=== PATIENT | male | born 1935 | race Caucasian/White ===

== ENCOUNTER 2016-10-30 13:30 | Inpatient (IN) ==
[2016-10-30] MEDS ORDERED: LEVOFLOXACIN INJ 750 MG in PREMIX 1 EACH IV SCH (14:00)
[2016-10-30] MEDS: SODIUM CHLORIDE 0.45% 1,000 ML IV SCH (14:21)
[2016-10-30] MEDS: FONDAPARINUX 2.5 MG/0.5 ML SYRINGE SUBCUT SCH (14:22)
--- NOTE | 2016-10-30 15:33 | XRay Report ---
XR chest 2V Indication: Pneumonia. Comparison: Chest x-ray 03/09/2015 Technique: PA and lateral chest x-ray was performed. Findings: This been little overall change in chest since comparison study. The biggest change exists within the left lung base in which there are now stranding and scattered airspace opacities could reflect worsening infection. Venous access device, postoperative changes right shoulder, bony structures soft tissues and heart size appears stable. Small left-sided pleural effusion is present. Trace right-sided pleural effusion is additionally suggested. Impression: 1. Increasing airspace disease left lung base suggests worsening infection. Small left-sided pleural effusion is additionally now present. 2. Trace right-sided pleural effusion is suggested. 10/30/2016 3:30 PM PROCEDURE INTERPRETED AT [facility] DEPARTMENT OF RADIOLOGY Final Report Signed by: Dr. Dmitri Roper
[2016-10-30] MEDS ORDERED: MAGNESIUM HYDROXIDE SUSP 30 ML UDCUP PO PRN (16:18)
[2016-10-30] MEDS ORDERED: traMADol 50 MG TABLET PO PRN (16:18)
[2016-10-30] MEDS ORDERED: ALUMINUM/MAGNES/SIMETH MAX STR 30 ML UDCUP PO PRN (16:18)
[2016-10-30] MEDS ORDERED: chlorproMAZINE INJ 25 MG in SODIUM CHLORIDE 0.9% 100 ML IV PRN (16:18)
[2016-10-30] MEDS ORDERED: PROMETHAZINE INJ 25 MG in SODIUM CHLORIDE 0.9% 50 ML IV PRN (16:18)
[2016-10-30] MEDS ORDERED: TEMAZEPAM 7.5 MG CAPSULE PO PRN (16:18)
[2016-10-30] MEDS ORDERED: MYLANTA/LIDO VISC 2:1 300 ML BOTTLE SWISH/SWAL PRN (16:18)
[2016-10-30] MEDS ORDERED: guaiFENesin 200 MG/10 ML UDCUP PO PRN (16:18)
[2016-10-30] MEDS ORDERED: LOPERAMIDE 2 MG CAPSULE PO PRN ×2 (16:18)
[2016-10-30] MEDS ORDERED: BENZTROPINE 2 MG/2 ML AMP IV PRN (16:18)
[2016-10-30] MEDS ORDERED: ONDANSETRON 4 MG/2 ML VIAL IV PRN (16:18)
[2016-10-30] MEDS ORDERED: MYLANTA/LIDO VISC 2:1 300 ML BOTTLE SWISH/SPIT PRN (16:18)
[2016-10-30] MEDS ORDERED: LACTULOSE 20 GM/30 ML UDCUP PO PRN (16:18)
[2016-10-30] MEDS ORDERED: chlorproMAZINE INJ 50 MG in SODIUM CHLORIDE 0.9% 100 ML IV PRN (16:18)
[2016-10-30] MEDS ORDERED: diphenhydrAMINE CAP 25 MG CAPSULE PO PRN (16:18)
[2016-10-30] MEDS ORDERED: chlorproMAZINE 25 MG TABLET PO PRN (16:18)
[2016-10-30] MEDS ORDERED: ACETAMINOPHEN 325 MG TABLET PO PRN (16:18)
[2016-10-30] MEDS ORDERED: MAGNESIUM CHLORIDE 64 MG TABLET PO ONE (22:24)
[2016-10-30] MEDS ORDERED: ASPIRIN EC 81 MG TABLET PO SCH (22:30)
[2016-10-30] MEDS: ALPRAZolam 0.25 MG TABLET PO PRN (22:42)
[2016-10-30] MEDS: TEMAZEPAM 15 MG CAPSULE PO SCH (22:42)
[2016-10-30] MEDS: TAMSULOSIN 0.4 MG CAPSULE PO SCH (22:42)
[2016-10-30] MEDS: TIMOLOL 0.5% OPH SOLN 5 ML BOTTLE RIGHT EYE SCH (23:40)
[2016-10-30] MEDS: DORZOLAMIDE 2% OPH SOLN 10 ML BOTTLE RIGHT EYE SCH (23:42)
[2016-10-31 06:31] LABS: Basophils % 0.3 % (0.0-0.8); Eosinophils # 0.1 10*3/uL (0.0-0.87); Eosinophils % 3.2 % (0.00-10.9); Hematocrit 29.9 VOL% (42.0-52.0); Hemoglobin 10.3 GM/DL (14.0-18.0); Immature Granulocytes % 0.6 %; Immature Granulocytes Absolute 0.02 #; Lymphocytes # 0.7 10*3/uL (1.4-4.0); Lymphocytes % 22.4 % (21.2-54.2); Mean Corpuscular HGB Conc 34.4 GM/DL (32-36); Mean Corpuscular Hemoglobin 35 PG (27-34); Mean Corpuscular Volume 100.7 FL (87-102); Mean Platelet Volume 10.4 FL (9.6-12.0); Monocytes # 0.4 10*3/uL (0.11-0.8); Monocytes % 13.6 % (1.7-12.7); Neutrophils # 1.8 10*3/uL (1.4-7.4); Neutrophils % 59.9 % (38.7-73.9); Platelet Count 49 T/CUMM (130-400); Red Blood Count 2.97 MC/CUMM (3.8-5.5); Red Cell Distribution Width 18.7 % (9.3-17.3); White Blood Count 3.1 T/CUMM (4-12)
[2016-10-31 06:58] LABS: Macrocytosis 2+; Target Cells Slight
[2016-10-31 08:29] LABS: Calcium 7.9 MG/DL (8.5-10.1); Osmolality,Calculated 284.1 MOS/KG (273-304); Potassium 4.2 MMOL/L (3.5-5.1)
[2016-10-31] MEDS: COENZYME Q10 100 MG CAPSULE PO SCH (08:31)
[2016-10-31] MEDS: ONDANSETRON 4 MG TABLET PO SCH ×3 (08:33→21:02)
[2016-10-31] MEDS: CITALOPRAM 20 MG TABLET PO SCH (08:33)
[2016-10-31] MEDS: DICYCLOMINE 10 MG CAPSULE PO SCH (08:34)
[2016-10-31] MEDS: TIMOLOL 0.5% OPH SOLN 5 ML BOTTLE RIGHT EYE SCH ×2 (08:35→21:00)
[2016-10-31] MEDS: DORZOLAMIDE 2% OPH SOLN 10 ML BOTTLE RIGHT EYE SCH ×2 (08:36→21:00)
[2016-10-31] MEDS ORDERED: PANTOPRAZOLE 20 MG TABLET PO SCH (09:00)
[2016-10-31] MEDS ORDERED: DORZOLAMIDE 2% OPH SOLN 10 ML BOTTLE RIGHT EYE SCH (09:00)
[2016-10-31] MEDS ORDERED: ONDANSETRON 4 MG TABLET PO PRN (10:04)
[2016-10-31] MEDS ORDERED: DICYCLOMINE 10 MG CAPSULE PO PRN (10:04)
--- NOTE | 2016-10-31 10:08 | Oncology History&Physical ---
Assessment and Plan (1) Left lower lobe pneumonia Status: Acute Assessment and plan: The patient will receive broad-spectrum antibiotics with close observation of his hematologic parameters. Plan to repeat chest x-ray on Thursday Current Visit: Yes History of Present Illness Chief complaint: Weakness History of present illness: Mr. French is a 81 year old male With a history of large B-cell lymphoma treated around [address] Vides. He then developed pancytopenia and was diagnosed with a high-grade myelodysplastic syndrome that I have been treating for approximately 18 months. He is chronically immunosuppressed and presented to the office yesterday with cough, weakness, and paroxysmal nocturnal dyspnea. No known history of cardiac or pulmonary dysfunction. The patient had taken oral ciprofloxacin approximately 1 -2 weeks prior without improvement. He had abnormal lung exam and was admitted with presumptive diagnosis of pneumonia. Home Medications Medication Instructions Recorded Confirmed Type Citalopram [CeleXA] 20 mg PO QAM 10/26/14 10/30/16 History HYDROcodone/ACETAMIN 5-325 [[place] 1 tablet PO Q6H PRN 10/26/14 10/30/16 History 5-325] Temazepam [Restoril] 15 mg PO BEDTIME 10/26/14 10/30/16 History Dorzolamide 2% Oph Soln [Trusopt 1 drop RIGHT EYE BID 12/08/14 10/30/16 History 2% Oph Soln] Timolol Maleate [Timolol 0.5% Oph 1 drop RIGHT EYE BID 12/08/14 10/30/16 History Soln] Aspirin [Ecotrin] 81 mg PO DAILY 01/21/16 10/30/16 History Coenzyme Q10 100 mg PO DAILY 01/21/16 10/30/16 History Tamsulosin [Flomax] 0.4 mg PO BEDTIME 01/21/16 10/30/16 History ALPRAZolam [Xanax] 0.25 mg PO TID PRN 07/04/16 10/30/16 History Magnesium Chloride [Slow Mag] 64 mg PO DAILY 07/04/16 10/30/16 History Ondansetron HCl [Zofran Tab] 8 mg PO TID PRN 07/04/16 10/30/16 History Dicyclomine Cap/Tab [Bentyl 10 mg PO DAILY PRN 07/07/16 10/30/16 History Cap/Tab] Omeprazole [Prilosec] 20 mg PO BID 10/30/16 10/30/16 History Allergies Allergy/AdvReac Type Severity Reaction Status Date / Time Penicillins Allergy Intermediate Gastrointestinal Verified 08/10/15 12:57 Upset Sulfa (Sulfonamide Allergy Verified 10/30/16 13:54 Antibiotics) nalbuphine [From Nubain] AdvReac Intermediate Hallucinati Verified 08/10/15 12: 57 ng Medical,Surgical,& Family Hx - Medical History Cardio: History of: Hypertension No history of: AL, Pacemaker Psychological: History of: Depression Neurology: No history of: Seizures HEENT: History of: Eye Problem (GLASSES) Endocrine: History of: Endocrine Cancer (Non-Hogdkins lymphoma) Rheumatology: History of;: Gout Respiratory: History of: Bronchitis, Pneumonia No history of: Asthma, Obstructive Sleep Apnea Renal: No history of: Renal Problems Genitourinary: No history of: Bladder Problem, Kidney Stones Gastrointestinal: History of: Diverticulitis/ Diverticulosis, GERD Musculoskeletal: History of: Musculoskeletal Problems (right humerus fx) Hematology: History of: Blood Disorders (myelodysplastic syndrome, history of lymphoma, followed by Dr. Britt) Other: History of: Cancer No history of: Anesthesia Reactions - Surgical History Cardiac Surgeries: Patient Denies: Cardiac Catheterization, Cardiac Surgery HEENT Surgeries: Surgical HX of: Eye Surgery (BILATERAL CATARACT,MACULAR DEGENERATION) Patient denies: Tonsilectomy & Adenoidectomy Abdominal Surgeries: Surgical HX of: Appendectomy, Cholecystectomy, Colonoscopy , EGD Patient denies: Hernia Repair Orthopedic Surgeries: Surgical HX of;: Orthopedic Surgery (right humerus) Patient denies;: Total Hip Replacement, Total Knee Replacement - Family History Family History: Reports;: Family Diabetes (father diabetes late in life), Family Hypertension (parents with htn) - Social History Smoking Status: Never smoker - Constitutional Constitutional: Present: fatigue, malaise, weakness. Absent: chills, fever(s), increased appetite, night sweats - EENT Eye: Absent: blurry vision Ears: Absent: decreased hearing Nose, mouth and throat: Absent: dysphagia, epistaxis - Cardiovascular Cardiovascular ROS IM: Absent: chest pain - Respiratory Respiratory: Present: cough, dyspnea. Absent: hemoptysis, wheezing - Gastrointestinal Gastrointestinal: Absent: dysphagia, early satiety, fecal incontinence, heartburn, hematemesis, hematochezia - Genitourinary Genitourinary ROS male: Absent: hematuria, urinary frequency - Musculoskeletal Musculoskeletal ROS: Present: muscle weakness. Absent: joint swelling, muscle cramps - Neurological Neurological ROS: Absent: abnormal speech, behavioral changes, convulsions - Psychiatric Psychiatric General: Absent: confusion Exam - Constitutional Vitals: Period Temp Pulse Resp BP Sys/Singh Pulse Ox Last 24 Hr 97.5 F-98.5 F 53-77 16-20 111-135/58-65 92-100 General appearance: no acute distress, under weight - Head Head Exam: Present: normal inspection, normocephalic - Eye Eye Exam: Present: EOMI. Absent: conjunctival injection, periorbital swelling, scleral icterus - ENT ENT exam: Present: normal external ear exam - Neck Neck exam: Present: normal inspection. Absent: lymphadenopathy, tenderness, thyromegaly - Respiratory Respiratory exam: Present: CTAB. Absent: accessory muscle use, chest wall tenderness - Cardiovascular Cardiovascular exam: Present: RRR - GI/Abdominal GI/Abdominal exam: Absent: ascites, distended, firm, guarding - Neurological Exam Neurological exam: Present: alert, oriented X3 - Psychiatric Psychiatric exam: Present: normal affect, normal mood Results - Labs CBC & BMP: 10/31/16 04:00 10/31/16 04:35
[2016-10-31] MEDS: AZITHROMYCIN INJ 500 MG in SODIUM CHLORIDE 0.9% 250 ML IV SCH (11:43)
[2016-10-31] MEDS: FONDAPARINUX 2.5 MG/0.5 ML SYRINGE SUBCUT SCH (15:12)
[2016-10-31] MEDS: SODIUM CHLORIDE 0.45% 1,000 ML IV SCH ×2 (15:12→18:31)
[2016-10-31] MEDS ORDERED: DORZOLAMIDE 2% RIGHT EYE SCH (21:00)
[2016-10-31] MEDS ORDERED: TAMSULOSIN 0.4 MG CAPSULE PO SCH (21:00)
[2016-10-31] MEDS ORDERED: TIMOLOL MALEATE RIGHT EYE SCH (21:00)
[2016-10-31] MEDS ORDERED: TEMAZEPAM 15 MG CAPSULE PO SCH (21:00)
[2016-10-31] MEDS: PANTOPRAZOLE 40 MG TABLET PO SCH (21:01)
[2016-10-31] MEDS: TAMSULOSIN 0.4 MG CAPSULE PO SCH (21:01)
[2016-10-31] MEDS: ALPRAZolam 0.25 MG TABLET PO PRN (21:01)
[2016-10-31] MEDS: TEMAZEPAM 15 MG CAPSULE PO SCH (21:01)
[2016-11-01] MEDS ORDERED: COENZYME Q10 100 MG CAPSULE PO SCH (09:00)
[2016-11-01] MEDS ORDERED: CITALOPRAM 20 MG TABLET PO SCH (09:00)
[2016-11-01] MEDS ORDERED: LORazepam 2 MG/1 ML VIAL IV PRN (09:42)
--- NOTE | 2016-11-01 09:47 | Oncology Progress Note ---
Assessment and Plan (1) Left lower lobe pneumonia Status: Acute Current Visit: Yes (2) MDS (myelodysplastic syndrome) Status: Acute Current Visit: Yes (3) NHL (non-Hodgkin's lymphoma) Status: Acute Current Visit: No Oncology Subjective PN Interval history: Mr. French is an 81-year-old white male with myelodysplasia who was admitted with a left lower lobe pneumonia. He is on azithromycin and Fortaz. His blood cultures are negative. He states he feels better today. His shortness of breath has almost resolved and his cough is decreased. He is afebrile. He has slept well overnight. We will continue with his current treatment and anticipate he will likely be in the hospital for 2-3 more days. Exam - Constitutional Vitals: Period Temp Pulse Resp BP Sys/Singh Pulse Ox Last 24 Hr 97.9 F-98.5 F 57-71 16-20 111-119/55-66 88-98 General appearance: normal weight, no acute distress - Head Head Exam: Present: normocephalic, atraumatic - Eye Eye Exam: Present: EOMI Pupils: Present: PERRL - ENT ENT exam: Present: normal exam, normal oropharynx - Neck Neck exam: Absent: lymphadenopathy, thyromegaly - Respiratory Respiratory exam: Present: CTAB. Absent: wheezes - Cardiovascular Cardiovascular exam: Present: RRR. Absent: JVD, systolic murmur - GI/Abdominal GI/Abdominal exam: Present: soft. Absent: ascites, distended, mass - Neurological Exam Neurological exam: Present: alert, oriented X3 - Psychiatric Psychiatric exam: Present: normal affect, normal mood - Skin Skin exam: Present: warm, dry Results - Labs CBC & BMP: 10/31/16 04:00 10/31/16 04:35 Lab Results: I have reviewed the past 24 hour labs
[2016-11-01] MEDS: TIMOLOL 0.5% OPH SOLN 5 ML BOTTLE RIGHT EYE SCH ×2 (09:57→20:51)
[2016-11-01] MEDS: COENZYME Q10 100 MG CAPSULE PO SCH (09:57)
[2016-11-01] MEDS: MAGNESIUM CHLORIDE 64 MG TABLET PO SCH (09:57)
[2016-11-01] MEDS: ASPIRIN EC 81 MG TABLET PO SCH (09:57)
[2016-11-01] MEDS: ONDANSETRON 4 MG TABLET PO SCH ×3 (09:58→20:51)
[2016-11-01] MEDS: DICYCLOMINE 10 MG CAPSULE PO SCH (09:58)
[2016-11-01] MEDS: CITALOPRAM 20 MG TABLET PO SCH (09:58)
[2016-11-01] MEDS: PANTOPRAZOLE 40 MG TABLET PO SCH ×2 (09:58→20:50)
[2016-11-01] MEDS: DORZOLAMIDE 2% OPH SOLN 10 ML BOTTLE RIGHT EYE SCH ×2 (09:58→20:50)
[2016-11-01] MEDS: AZITHROMYCIN INJ 500 MG in SODIUM CHLORIDE 0.9% 250 ML IV SCH (12:10)
[2016-11-01] MEDS: FONDAPARINUX 2.5 MG/0.5 ML SYRINGE SUBCUT SCH (13:55)
[2016-11-01] MEDS: SODIUM CHLORIDE 0.45% 1,000 ML IV SCH ×2 (13:55→23:22)
[2016-11-01] MEDS: TAMSULOSIN 0.4 MG CAPSULE PO SCH (20:49)
[2016-11-01] MEDS: TEMAZEPAM 15 MG CAPSULE PO SCH (20:49)
[2016-11-01] MEDS: ALPRAZolam 0.25 MG TABLET PO PRN (20:49)
[2016-11-02 06:05] LABS: Basophils % 0.4 % (0.0-0.8); Eosinophils # 0.1 10*3/uL (0.0-0.87); Eosinophils % 2.5 % (0.00-10.9); Hematocrit 29.8 VOL% (42.0-52.0); Immature Granulocytes % 0.4 %; Immature Granulocytes Absolute 0.01 #; Lymphocytes # 0.7 10*3/uL (1.4-4.0); Lymphocytes % 24.4 % (21.2-54.2); Mean Corpuscular HGB Conc 33.6 GM/DL (32-36); Mean Corpuscular Hemoglobin 34 PG (27-34); Mean Platelet Volume 12.3 FL (9.6-12.0); Monocytes # 0.3 10*3/uL (0.11-0.8); Monocytes % 12.4 % (1.7-12.7); Neutrophils # 1.7 10*3/uL (1.4-7.4); Neutrophils % 59.9 % (38.7-73.9); Platelet Count 57 T/CUMM (130-400); Red Blood Count 2.95 MC/CUMM (3.8-5.5); Red Cell Distribution Width 18.7 % (9.3-17.3); White Blood Count 2.8 T/CUMM (4-12)
[2016-11-02 06:28] LABS: Band Neutrophils 1 % (0-10); Eosinophils 1 % (0-10); Hypochromasia 1+; Lymphocytes 24 % (20-55); Macrocytosis 1+; Segmented Neutrophils 64 % (50-85); Total Cells Counted 100
[2016-11-02 06:29] LABS: Ovalocytes Few; Platelet Estimate Decreased
[2016-11-02 06:35] LABS: Potassium 4.8 MMOL/L (3.5-5.1)
--- NOTE | 2016-11-02 08:19 | Oncology Progress Note ---
Assessment and Plan (1) Left lower lobe pneumonia Status: Acute Current Visit: Yes (2) MDS (myelodysplastic syndrome) Status: Acute Current Visit: Yes (3) NHL (non-Hodgkin's lymphoma) Status: Acute Current Visit: No Oncology Subjective PN Interval history: Mr. French continues to improve daily. He states he is sleeping much better and his shortness of breath is significantly improved. He is not having any fevers. His blood cultures are no growth. He is starting to ask about going home in the near future. Hopefully he will be discharged in the next day or 2. I told him at least 1 more day of IV antibiotics is in his best interest given his pancytopenia. His neutrophil count today is 1.7. On exam he is awake and alert and in a good mood. His lungs are clear to auscultation bilaterally other than some crackles at the left base. His heart is regular rate and rhythm with no murmurs gallops or rubs. His skin is warm and dry with no evidence of jaundice. His peripheral extremities show no edema. His abdomen is soft no palpable masses. Exam - Constitutional Vitals: Period Temp Pulse Resp BP Sys/Singh Pulse Ox Last 24 Hr 98 F-98.7 F 51-78 18-21 105-153/51-75 92-98 Results - Labs CBC & BMP: 11/02/16 05:39 11/02/16 05:39 Lab Results: I have reviewed the past 24 hour labs
[2016-11-02] MEDS: ASPIRIN EC 81 MG TABLET PO SCH (09:03)
[2016-11-02] MEDS: PANTOPRAZOLE 40 MG TABLET PO SCH ×2 (09:03→20:32)
[2016-11-02] MEDS: CITALOPRAM 20 MG TABLET PO SCH (09:03)
[2016-11-02] MEDS: DICYCLOMINE 10 MG CAPSULE PO SCH (09:03)
[2016-11-02] MEDS: MAGNESIUM CHLORIDE 64 MG TABLET PO SCH (09:03)
[2016-11-02] MEDS: COENZYME Q10 100 MG CAPSULE PO SCH (09:03)
[2016-11-02] MEDS: DORZOLAMIDE 2% OPH SOLN 10 ML BOTTLE RIGHT EYE SCH ×2 (09:04→20:34)
[2016-11-02] MEDS: TIMOLOL 0.5% OPH SOLN 5 ML BOTTLE RIGHT EYE SCH ×2 (09:04→20:34)
[2016-11-02] MEDS: ONDANSETRON 4 MG TABLET PO SCH ×3 (09:04→20:34)
[2016-11-02] MEDS: AZITHROMYCIN INJ 500 MG in SODIUM CHLORIDE 0.9% 250 ML IV SCH (11:04)
[2016-11-02] MEDS: SODIUM CHLORIDE 0.45% 1,000 ML IV SCH (14:34)
[2016-11-02] MEDS: FONDAPARINUX 2.5 MG/0.5 ML SYRINGE SUBCUT SCH (14:34)
[2016-11-02] MEDS: TEMAZEPAM 15 MG CAPSULE PO SCH (20:32)
[2016-11-02] MEDS: TAMSULOSIN 0.4 MG CAPSULE PO SCH (20:32)
[2016-11-02] MEDS: ALPRAZolam 0.25 MG TABLET PO PRN (20:32)
[2016-11-03 04:29] LABS: Basophils % 0.7 % (0.0-0.8); Eosinophils # 0.1 10*3/uL (0.0-0.87); Hematocrit 28.8 VOL% (42.0-52.0); Hemoglobin 9.7 GM/DL (14.0-18.0); Immature Granulocytes % 0.4 %; Immature Granulocytes Absolute 0.01 #; Lymphocytes # 0.7 10*3/uL (1.4-4.0); Lymphocytes % 24.7 % (21.2-54.2); Mean Corpuscular HGB Conc 33.7 GM/DL (32-36); Mean Corpuscular Hemoglobin 34 PG (27-34); Mean Corpuscular Volume 100.7 FL (87-102); Mean Platelet Volume 12.1 FL (9.6-12.0); Monocytes # 0.3 10*3/uL (0.11-0.8); Monocytes % 12.2 % (1.7-12.7); Neutrophils # 1.6 10*3/uL (1.4-7.4); Platelet Count 65 T/CUMM (130-400); Red Blood Count 2.86 MC/CUMM (3.8-5.5); Red Cell Distribution Width 18.6 % (9.3-17.3); White Blood Count 2.7 T/CUMM (4-12)
[2016-11-03 05:10] LABS: Band Neutrophils 1 % (0-10); Eosinophils 4 % (0-10); Hypochromasia 1+; Lymphocytes 24 % (20-55); Ovalocytes Slight; Platelet Estimate Decreased; Segmented Neutrophils 61 % (50-85); Total Cells Counted 100
[2016-11-03 05:11] LABS: Macrocytosis Slight
[2016-11-03] MEDS: SODIUM CHLORIDE 0.45% 1,000 ML IV SCH (06:57)
[2016-11-03] MEDS ORDERED: HEPARIN LOCK FLUSH 500 UNIT/5 ML SYRINGE IV ONE (08:10)
--- NOTE | 2016-11-03 09:08 | XRay Report ---
2 view chest. Indication: Shortness of breath. Comparison: October 30, 2016. The heart is normal in size. There is calcific plaque present within the aortic knob. A Chemo-Port is in satisfactory position. There is now infiltrate seen in the right upper lobe, not present on the recent previous study. Areas of atelectasis and pleural effusion at each base are stable. Orthopedic hardware is present in the right humerus. Impression: Interval worsening, with infiltrate now present in the right upper lobe. PROCEDURE INTERPRETED AT [facility] DEPARTMENT OF RADIOLOGY Final Report Signed by: Dr. Alanna Cueva
--- NOTE | 2016-11-03 09:11 | Oncology Progress Note ---
Assessment and Plan (1) Left lower lobe pneumonia Status: Acute Assessment and plan: The patient will receive broad-spectrum antibiotics with close observation of his hematologic parameters. Plan to repeat chest x-ray on Thursday Current Visit: Yes Oncology Subjective PN Interval history: The patient reported a good day yesterday he was out of the bed for 12-13 hours. He feels a little worse today and he is weaker. I reviewed his CBC which is holding stable. I have also reviewed today's chest x-ray that shows a new infiltrate within the right upper lobe. He is receiving Fortaz and Zithromax. Going to change the Fortaz to every 8 hours rather than every 12. I have also will check room air O2 sats. He has some very mild crackles at the left base with no wheezing present at this time. No digital cyanosis. Exam - Constitutional Vitals: Period Temp Pulse Resp BP Sys/Singh Pulse Ox Last 24 Hr 97.6 F-98.8 F 62-88 18-22 113-133/54-69 91-100 Results - Labs CBC & BMP: 11/03/16 04:13 11/02/16 05:39
[2016-11-03] MEDS: MAGNESIUM CHLORIDE 64 MG TABLET PO SCH (09:21)
[2016-11-03] MEDS: ALPRAZolam 0.25 MG TABLET PO PRN ×3 (09:22→20:44)
[2016-11-03] MEDS: PANTOPRAZOLE 40 MG TABLET PO SCH ×2 (09:22→20:36)
[2016-11-03] MEDS: DICYCLOMINE 10 MG CAPSULE PO SCH (09:22)
[2016-11-03] MEDS: COENZYME Q10 100 MG CAPSULE PO SCH (09:23)
[2016-11-03] MEDS: ASPIRIN EC 81 MG TABLET PO SCH (09:23)
[2016-11-03] MEDS: ONDANSETRON 4 MG TABLET PO SCH ×3 (09:24→20:36)
[2016-11-03] MEDS: CITALOPRAM 20 MG TABLET PO SCH (09:24)
[2016-11-03] MEDS: TIMOLOL 0.5% OPH SOLN 5 ML BOTTLE RIGHT EYE SCH ×2 (09:25→20:36)
[2016-11-03] MEDS: DORZOLAMIDE 2% OPH SOLN 10 ML BOTTLE RIGHT EYE SCH ×2 (09:26→20:35)
[2016-11-03] MEDS: AZITHROMYCIN INJ 500 MG in SODIUM CHLORIDE 0.9% 250 ML IV SCH (11:08)
[2016-11-03] MEDS: FONDAPARINUX 2.5 MG/0.5 ML SYRINGE SUBCUT SCH (14:16)
[2016-11-03] MEDS: TAMSULOSIN 0.4 MG CAPSULE PO SCH (20:36)
[2016-11-03] MEDS: TEMAZEPAM 15 MG CAPSULE PO SCH (20:36)
[2016-11-04] MEDS ORDERED: FUROSEMIDE 40 MG/4 ML VIAL IV ONE (08:04)
--- NOTE | 2016-11-04 08:13 | Oncology Progress Note ---
Assessment and Plan (1) Left lower lobe pneumonia Status: Acute Assessment and plan: The patient will receive broad-spectrum antibiotics with close observation of his hematologic parameters. Plan to repeat chest x-ray on Thursday Current Visit: Yes Oncology Subjective PN Interval history: Hospital day 6 for patient with history of large B-cell lymphoma around 2012 now being treated for myelodysplastic syndrome. The patient had a rough night overnight with dyspnea and trouble catching his breath. He is currently on 3 L of O2. There is mild pulmonary congestion on bilateral examination. No digital cyanosis is noted. Mental status shows appropriate mood affect and orientation. Labs are notable for abnormal CBC. 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 His chronic warfarin was discontinued last year due to thrombocytopenia. He is receiving prophylactic dose of Arixtra He still has a mild cough which is mainly nonproductive. I reviewed his cardiac BNP from last week from the office and it was elevated around 800. I am continuing him on Fortaz and Zithromax. He has no fever to my knowledge. I will add respiratory treatments today as well as give one-time dose of Lasix. Check echocardiogram and request pulmonary consultation. Repeat chest x-ray in the morning. Yesterday's imaging seem to indicate a new infiltrate in the right lung Exam - Constitutional Vitals: Period Temp Pulse Resp BP Sys/Singh Pulse Ox Last 24 Hr 98.0 F-98.6 F 62-95 20-22 109-154/57-87 90-98 Results - Labs CBC & BMP: 11/03/16 04:13 11/02/16 05:39
[2016-11-04] MEDS: ALBUTEROL/IPRATROPIUM 3 ML NEB RESP TX SCH ×2 (09:02→19:13)
[2016-11-04] MEDS: ASPIRIN EC 81 MG TABLET PO SCH (09:51)
[2016-11-04] MEDS: DICYCLOMINE 10 MG CAPSULE PO SCH (09:51)
[2016-11-04] MEDS: CITALOPRAM 20 MG TABLET PO SCH (09:52)
[2016-11-04] MEDS: PANTOPRAZOLE 40 MG TABLET PO SCH ×2 (09:52→21:39)
[2016-11-04] MEDS: COENZYME Q10 100 MG CAPSULE PO SCH (09:54)
[2016-11-04] MEDS: MAGNESIUM CHLORIDE 64 MG TABLET PO SCH (09:54)
[2016-11-04] MEDS: ONDANSETRON 4 MG TABLET PO SCH ×3 (09:54→21:45)
[2016-11-04] MEDS: DORZOLAMIDE 2% OPH SOLN 10 ML BOTTLE RIGHT EYE SCH ×2 (09:57→21:47)
[2016-11-04] MEDS: TIMOLOL 0.5% OPH SOLN 5 ML BOTTLE RIGHT EYE SCH ×2 (09:57→21:46)
--- NOTE | 2016-11-04 10:03 | Pulmonology Consult Note ---
Assessment and Plan (1) Congestive heart failure Status: Acute Assessment and plan: He had an elevated BNP prior to admission. He is +8 L on his IV fluids I and O. Has developed rales and jugular venous distention. Has severe orthopnea. We need to diurese him, stop IV fluids, obtain echocardiogram. Certainly feel he has a superimposed pneumonia as well. He is on good antibiotic however will add Merrem. Current Visit: Yes (2) Left lower lobe pneumonia Status: Acute Assessment and plan: Has a left lower lobe pneumonia on admission. Also has a right upper lobe infiltrate that may be interstitial fluid. Will add Merrem Current Visit: Yes (3) MDS (myelodysplastic syndrome) Status: Acute Assessment and plan: Immunocompromise from this. Managed by Dr. Britt. Current Visit: Yes History of Present Illness Chief complaint: Shortness of breath History of present illness: Mr. French is a 81 year old male who has had a B-cell lymphoma treated and then developed myelodysplastic syndrome. He is chronically immunosuppressed. He came in with cough dyspnea especially when lying down. He is never been a smoker. He has had an elevated BNP but is not known to have heart disease. He was admitted placed on antibiotics and also given IV fluids. He is more short of breath and said he was so short of breath he thought he was going to last night. He does better sitting up in a chair. Looking at his IV fluids he is about +8 L since admission but there are no follow-up weights. He has not had an echo but one is pending. He has not had fever since admission. He has developed in addition to worsening left lower lobe infiltrate, a right upper lobe infiltrate. Home Medications Medication Instructions Recorded Confirmed Type Citalopram [CeleXA] 20 mg PO QAM 10/26/14 10/30/16 History HYDROcodone/ACETAMIN 5-325 [[place] 1 tablet PO Q6H PRN 10/26/14 10/30/16 History 5-325] Temazepam [Restoril] 15 mg PO BEDTIME 10/26/14 10/30/16 History Dorzolamide 2% Oph Soln [Trusopt 1 drop RIGHT EYE BID 12/08/14 10/30/16 History 2% Oph Soln] Timolol Maleate [Timolol 0.5% Oph 1 drop RIGHT EYE BID 12/08/14 10/30/16 History Soln] Aspirin [Ecotrin] 81 mg PO DAILY 01/21/16 10/30/16 History Coenzyme Q10 100 mg PO DAILY 01/21/16 10/30/16 History Tamsulosin [Flomax] 0.4 mg PO BEDTIME 01/21/16 10/30/16 History ALPRAZolam [Xanax] 0.25 mg PO TID PRN 07/04/16 10/30/16 History Magnesium Chloride [Slow Mag] 64 mg PO DAILY 07/04/16 10/30/16 History Ondansetron HCl [Zofran Tab] 8 mg PO TID PRN 07/04/16 10/30/16 History Dicyclomine Cap/Tab [Bentyl 10 mg PO DAILY PRN 07/07/16 10/30/16 History Cap/Tab] Omeprazole [Prilosec] 20 mg PO BID 10/30/16 10/30/16 History Allergies Allergy/AdvReac Type Severity Reaction Status Date / Time Penicillins Allergy Intermediate Gastrointestinal Verified 08/10/15 12:57 Upset Sulfa (Sulfonamide Allergy Verified 10/30/16 13:54 Antibiotics) nalbuphine [From Nubain] AdvReac Intermediate Hallucinati Verified 08/10/15 12: 57 ng 12 point system: reviewed and no additional remarkable complaints except as stated - Constitutional Constitutional: Present: fatigue, malaise, weakness - Cardiovascular Cardiovascular: Present: dyspnea, dyspnea on exertion, orthopnea - Respiratory Respiratory: Present: cough, dyspnea, dyspnea on exertion - Musculoskeletal Musculoskeletal: Present: muscle weakness Exam (Pulmonay) H&P - Constitutional Vitals: Period Temp Pulse Resp BP Sys/Singh Pulse Ox Last 24 Hr 97.6 F-98.6 F 62-95 18-22 109-154/57-87 90-98 Exam: Patient's alert oriented sitting up in his chair. Vital signs normal. Pupils react to light. Throat is clear. Neck is supple. He does have jugular venous distention. Chest reveals rales bilaterally in the bases. Heart normal rate and rhythm no murmurs I do not hear any gallop. Abdomen soft nontender no masses. Bowel sounds present. He does have an hepatojugular reflex. Extremities no clubbing or cyanosis. He has 1+ peripheral edema. Calves are nontender. Medical,Surgical,& Family Hx - Medical History Cardio: History of: Hypertension No history of: [place], Pacemaker Psychological: History of: Depression Neurology: No history of: Seizures HEENT: History of: Eye Problem (GLASSES) Endocrine: History of: Endocrine Cancer (Non-Hogdkins lymphoma) Rheumatology: History of;: Gout Respiratory: History of: Bronchitis, Pneumonia No history of: Asthma, Obstructive Sleep Apnea Renal: No history of: Renal Problems Genitourinary: No history of: Bladder Problem, Kidney Stones Gastrointestinal: History of: Diverticulitis/ Diverticulosis, GERD Musculoskeletal: History of: Musculoskeletal Problems (right humerus fx) Hematology: History of: Blood Disorders (myelodysplastic syndrome, history of lymphoma, followed by Dr. Britt) Other: History of: Cancer No history of: Anesthesia Reactions - Surgical History Cardiac Surgeries: Patient Denies: Cardiac Catheterization, Cardiac Surgery HEENT Surgeries: Surgical HX of: Eye Surgery (BILATERAL CATARACT,MACULAR DEGENERATION) Patient denies: Tonsilectomy & Adenoidectomy Abdominal Surgeries: Surgical HX of: Appendectomy, Cholecystectomy, Colonoscopy , EGD Patient denies: Hernia Repair Orthopedic Surgeries: Surgical HX of;: Orthopedic Surgery (right humerus) Patient denies;: Total Hip Replacement, Total Knee Replacement - Family History Family History: Reports;: Family Diabetes (father diabetes late in life), Family Hypertension (parents with htn) - Social History Smoking Status: Never smoker Results - Labs CBC & BMP: 11/03/16 04:13 11/02/16 05:39 Lab Results: I have reviewed the past 24 hour labs - Diagnostic Findings Procedure: Chest x-ray: image reviewed by me (Bilateral infiltrates left lower lobe and right upper lobe. Increased interstitial edema.)
[2016-11-04] MEDS: MEROPENEM 500 MG in SODIUM CHLORIDE 0.9% 100 ML IV SCH ×2 (10:48→21:46)
[2016-11-04] MEDS: AZITHROMYCIN INJ 500 MG in SODIUM CHLORIDE 0.9% 250 ML IV SCH (11:28)
[2016-11-04] MEDS ORDERED: HEPARIN LOCK FLUSH 500 UNIT/5 ML SYRINGE IV ONE (12:32)
--- NOTE | 2016-11-04 13:59 | ECHO Report ---
Eleanor French Exam Date: 11/04/2016 08:53 Referring Physician: Technologist: Lyn Castro Age: 81 Ht (in): 74 Wt (lb): 206 Gender: M Exam Location: [facility] Echo Indications: MDS, elevated BNP, Hx. of anthracycline exposure, LLL pneumonia BP: 114 / 71 HR: 75 Rhythm: Sinus Technical Quality: Fair IMPRESSIONS 1. Left ventricle is normal size with severe systolic dysfunction with global hypokinesis and ejection fraction 20-25%. 2. Left atrium is mild to moderately dilated. 3. Right-sided chambers are normal size. 4. Thickened mitral valve with mild to moderate regurgitation. 5. Aortic valve with minimal sclerosis and trace regurgitation. 6. Mild tricuspid valve regurgitation. 7. Mild elevated right-sided pressures. MEASUREMENTS (Male / Female) Normal Values 2D ECHO LV Diastolic Diameter PLAX 5.2 cm 4.2 - 5.9 / 3.9 - 5.3 cm LV Systolic Diameter PLAX 4.9 cm LV Fractional Shortening PLAX 5.6 % IVS Diastolic Thickness 1.1 cm 0.6 - 1.0 / 0.6 - 0.9 cm LVPW Diastolic Thickness 1.1 cm 0.6 - 1.0 / 0.6 - 0.9 cm Aortic Root Diameter 2.6 cm LA Systolic Diameter LX 3.4 cm 3.0 - 4.0 / 2.7 - 3.8 cm DOPPLER TR Peak Velocity 318.0 cm/s TR Peak Gradient 40.4 mmHg FINDINGS Left Ventricle Left ventricle is normal size with severe systolic dysfunction with global hypokinesis. Ejection fraction is 20-25%. . Right Ventricle Normal right ventricular size. Right Atrium Normal right atrial size. Left Atrium Left atrium is mild to moderately dilated. Mitral Valve Mildly thickened mitral valve with mild mitral regurgitation if not moderate. There is minimal posterior mitral annular calcification. Aortic Valve The aortic valve is trileaflet and has normal motion with minimal sclerosis. Trace aortic valve regurgitation. Tricuspid Valve Morphologically normal tricuspid valve. Mild tricuspid valve regurgitation. Tricuspid regurgitation velocities suggest a PAP of 45- 50 mmHg. Pulmonic Valve Morphologically normal pulmonic valve. Trace pulmonary valve regurgitation. Pericardium No pericardial effusion. Aorta Normal size aortic root and proximal ascending aorta. Devon Arteaga MD (Electronically Signed) Final Date: 04 November 2016 13:58
[2016-11-04] MEDS: FONDAPARINUX 2.5 MG/0.5 ML SYRINGE SUBCUT SCH (16:10)
[2016-11-04] MEDS: TAMSULOSIN 0.4 MG CAPSULE PO SCH (21:39)
[2016-11-04] MEDS: ALPRAZolam 0.25 MG TABLET PO PRN (21:39)
[2016-11-04] MEDS: TEMAZEPAM 15 MG CAPSULE PO SCH (21:42)
[2016-11-05 04:17] LABS: Basophils % 0.5 % (0.0-0.8); Eosinophils # 0.1 10*3/uL (0.0-0.87); Eosinophils % 1.6 % (0.00-10.9); Hemoglobin 10.2 GM/DL (14.0-18.0); Immature Granulocytes % 0.3 %; Immature Granulocytes Absolute 0.01 #; Lymphocytes # 0.9 10*3/uL (1.4-4.0); Lymphocytes % 25.5 % (21.2-54.2); Mean Corpuscular Hemoglobin 34 PG (27-34); Mean Corpuscular Volume 99.3 FL (87-102); Mean Platelet Volume 11.7 FL (9.6-12.0); Monocytes # 0.5 10*3/uL (0.11-0.8); Monocytes % 12.2 % (1.7-12.7); Neutrophils # 2.2 10*3/uL (1.4-7.4); Neutrophils % 59.9 % (38.7-73.9); Platelet Count 91 T/CUMM (130-400); Red Blood Count 3.02 MC/CUMM (3.8-5.5); Red Cell Distribution Width 18.5 % (9.3-17.3); White Blood Count 3.7 T/CUMM (4-12)
[2016-11-05 04:36] LABS: Albumin 3.1 G/DL (3.4-5.0); Bilirubin,Total 1.3 MG/DL (0.2-1.0); Magnesium 1.8 MG/DL (1.8-2.4); Osmolality,Calculated 278.5 MOS/KG (273-304); Total Protein 5.9 G/DL (6.4-8.3)
[2016-11-05 04:37] LABS: Potassium 4.5 MMOL/L (3.5-5.1)
[2016-11-05 05:29] LABS: Band Neutrophils 1 % (0-10); Eosinophils 1 % (0-10); Hypochromasia 1+; Lymphocytes 24 % (20-55); Segmented Neutrophils 66 % (50-85); Total Cells Counted 100
[2016-11-05 05:30] LABS: Anisocytosis 1+; Macrocytosis 1+; Ovalocytes Few
[2016-11-05 05:31] LABS: Platelet Estimate Decreased
[2016-11-05] MEDS: ALBUTEROL/IPRATROPIUM 3 ML NEB RESP TX SCH ×2 (07:49→20:03)
--- NOTE | 2016-11-05 08:23 | Oncology Progress Note ---
Assessment and Plan (1) Left lower lobe pneumonia Status: Acute Assessment and plan: The patient will receive broad-spectrum antibiotics with close observation of his hematologic parameters. Plan to repeat chest x-ray on Thursday Current Visit: Yes Oncology Subjective PN Interval history: Patient is stable overnight. Mild orthopnea with one pillow noted. Lungs are clear at this time. No peripheral edema. Heart rhythm is regular. Elevated BNP and echocardiogram are consistent with CHF. Will ask for cardiology assistance. I believe his pneumonia is responding at this time based on lack of cough and lack of fever. His CBC is acceptable given his diagnosis of myelodysplastic syndrome Exam - Constitutional Vitals: Period Temp Pulse Resp BP Sys/Singh Pulse Ox Last 24 Hr 97.1 F-99.4 F 60-81 16-20 117-132/57-63 93-99 Results - Labs CBC & BMP: 11/05/16 03:10 11/05/16 03:10
--- NOTE | 2016-11-05 08:45 | XRay Report ---
XR chest 1V portable Indication: Pneumonia Comparison: Chest x-ray dated November 03, 2016 Technique: Single frontal view of the chest. Findings: Continued cardiomegaly. Interval worsened bilateral pulmonary consolidation. Suspect small bilateral pleural fluid. Visualized osseous and surrounding soft tissue structures appear grossly unchanged. IMPRESSION: As above. PROCEDURE INTERPRETED AT [facility] DEPARTMENT OF RADIOLOGY Final Report Signed by: Dr Madhu Heaton
--- NOTE | 2016-11-05 09:12 | Pulmonology Progress Note ---
Pulmonary - PN: Subj Interval history: 81-year-old man with pneumonia and myelodysplastic syndrome. He has developed congestive heart failure. BNP 1460, ejection fraction 20-25%. Chest x-ray certainly looks wet. I agreed that his pneumonia is improved symptomatically. Cardiology is to see him. He is getting Lasix and Zaroxolyn and we have stopped his IV fluids. Today he has a mild left nosebleed. Changing his oxygen to a nasal mask. Exam (Progress Note) - Constitutional Vitals: Period Temp Pulse Resp BP Sys/Singh Pulse Ox Last 24 Hr 97.1 F-99.4 F 60-81 18-20 117-132/57-63 93-99 Exam: Patient's alert and oriented. Vital signs normal. Pupils react to light. Mild excoriation anterior triangle left nasal septum. Throat is clear. Neck supple no bruits. Chest reveals bibasilar crackles bilaterally. Heart normal rate rhythm no murmurs. Abdomen soft nontender no masses. Extremities no clubbing or cyanosis. Calves nontender. 1+ peripheral edema. Results - Labs CBC & BMP: 11/05/16 03:10 11/05/16 03:10 Lab Results: I have reviewed the past 24 hour labs - Diagnostic Findings Procedure: Chest x-ray: image reviewed by me (Certainly appears wet this morning ) Assessment and Plan (1) Congestive heart failure Status: Acute Assessment and plan: He had an elevated BNP prior to admission. He is +8 L on his IV fluids I and O. Has developed rales and jugular venous distention. Has severe orthopnea. We need to diurese him, stop IV fluids, obtain echocardiogram. Certainly feel he has a superimposed pneumonia as well. He is on good antibiotic however will add Merrem. 11/05/2016 BNP 1460. LV ejection fraction 20-25%. Clearly has a cardiomyopathy. Cardiology to see. Diuresing. Current Visit: Yes (2) Left lower lobe pneumonia Status: Acute Assessment and plan: Has a left lower lobe pneumonia on admission. Also has a right upper lobe infiltrate that may be interstitial fluid. Will add Merrem 11/05/2016 clinically improved. Current Visit: Yes (3) MDS (myelodysplastic syndrome) Status: Acute Assessment and plan: Immunocompromise from this. Managed by Dr. Britt. 11/05/16 immunocompromise due to myelodysplastic syndrome. Current Visit: Yes
[2016-11-05] MEDS: ASPIRIN EC 81 MG TABLET PO SCH (09:18)
[2016-11-05] MEDS: MAGNESIUM CHLORIDE 64 MG TABLET PO SCH (09:18)
[2016-11-05] MEDS: FUROSEMIDE 40 MG/4 ML VIAL IV SCH (09:18)
[2016-11-05] MEDS: PANTOPRAZOLE 40 MG TABLET PO SCH ×2 (09:18→20:49)
[2016-11-05] MEDS: DICYCLOMINE 10 MG CAPSULE PO SCH (09:18)
[2016-11-05] MEDS: COENZYME Q10 100 MG CAPSULE PO SCH (09:18)
[2016-11-05] MEDS: CITALOPRAM 20 MG TABLET PO SCH (09:18)
[2016-11-05] MEDS: metOLazone 2.5 MG TABLET PO SCH (09:18)
[2016-11-05] MEDS: DORZOLAMIDE 2% OPH SOLN 10 ML BOTTLE RIGHT EYE SCH ×2 (09:21→20:53)
[2016-11-05] MEDS: TIMOLOL 0.5% OPH SOLN 5 ML BOTTLE RIGHT EYE SCH ×2 (09:21→20:53)
[2016-11-05] MEDS: ONDANSETRON 4 MG TABLET PO SCH ×3 (09:26→20:52)
[2016-11-05] MEDS: MEROPENEM 500 MG in SODIUM CHLORIDE 0.9% 100 ML IV SCH ×2 (10:20→22:14)
[2016-11-05] MEDS: AZITHROMYCIN INJ 500 MG in SODIUM CHLORIDE 0.9% 250 ML IV SCH (11:34)
[2016-11-05 12:18] LABS: Apearance,Urine CLEAR (Clear); Bilirubin,Urine Negative (Negative); Blood, Urine Small mg/dL (Negative); Glucose,Urine (UA) Negative (Negative); Ketones,Urine Negative (Negative); Nitrite,Urine Negative (Negative); Protein,Urine Negative; RBC,Urine 9 /HPF (0-4); Squamous Epithelial Cell,Urine Occasional /HPF (0-10); Urine Color Colorless (Yellow); Urine Specific Gravity 1.003 (1.001-1.035); Urine Urobilinogen < 2.0 EU/DL (0.2-1.0); WBC,Urine <1 /HPF (0-6)
[2016-11-05] MEDS: FONDAPARINUX 2.5 MG/0.5 ML SYRINGE SUBCUT SCH (13:27)
--- NOTE | 2016-11-05 17:49 | Cardiology Consult Note ---
Sarah Alves April, RN, am scribing for, and in the presence of, Devon Arteaga MD 17:47. Assessment and Plan - Time spent with patient Time spent with patient: Greater than 30 minutes (Due to assessment, planning, documentation, medication review) (1) Dyspnea on exertion Status: Acute Assessment and plan: This appears to be secondary to probably his cardiomyopathy. Current Visit: Yes (2) Left lower lobe pneumonia Status: Acute Assessment and plan: He is on IV antibiotics, pulmonary medicine is following. Current Visit: Yes (3) Anemia Status: Acute Assessment and plan: His cell counts have been stable. His platelet count is low but has improved. Dr. Britt is managing. Current Visit: No (4) Cardiomyopathy Status: Acute Assessment and plan: Etiology is unclear but certainly symptomatic. This may related to some of his chemotherapy agents she has been treated with. It could very well be idiopathic. He is unlikely ischemic in nature. We will make some adjustments on his medications. At some point in the future if he has LV function did not improve then AICD will be a consideration. Current Visit: Yes History of Present Illness - Data of Consult Patient: new to practice Consult date: 11/05/16 Requesting Physician: Devon Britt Primary care physician: Devon Britt - Consult Narrative Reason for consult: CHF History of present illness: Ob/Gyn: Dr. De in the remote past Oncologist: Dr. Britt Mr. French is a 81 year old male who last saw Dr. De in 2010. He reports having a stress test by Dr. De that was normal. He denies ever having had a heart catheterization. He had an echocardiogram March 2014 with ejection fraction of 55%. Dr. Britt is presently treating him for pancytopenia and a high -grade myelodysplastic syndrome. He has a history of hypertension, macular pucker, non-Hodgkin's lymphoma, gout, pneumonia, and GERD. Surgical history includes numerous eye surgeries, cholecystectomy, and right arm surgery. Family history is positive for father with diabetes and daughter with heart problems. He reports he is a lifetime non-smoker. He reports that for the last 6 weeks he has been more tired and weak than usual. He is also had more dyspnea on exertion as well as orthopnea and a cough. He presented to Dr. Britt's office October 30 with these symptoms and was sent for admission to [facility]. Initial chest x-ray suggested left lower lobe pneumonia and x-ray done November 03 showed that it was worsening with infiltrate then present in the right upper lobe. Blood cultures have been negative. He was on court monitor during the early part of his admission and was noted to be in sinus rhythm. He did have some short runs of V. tach. Echocardiogram done yesterday showed severe systolic dysfunction with global hypokinesis and ejection fraction of 20-25%. BNP this morning was 1460. Mr. French is seen this morning sitting up in a chair. He has oxygen and use via nasal mask after having a nosebleed this morning. He has been given IV Lasix. He states he has diuresed well from this and his breathing has improved. He denies any chest pain or palpitations. Vital signs have been stable. He is not on a monitor but heart seems regular on examination. Patient personally interviewed and examined and chart reviewed. I discussed his case with Gabbi Smith RN. The patient is doing generally fairly well but has now developed a cardiomyopathy compared to echocardiogram carried out to you and a half years ago. This may be related to his chemotherapy agents. Other issues could be secondary to ischemic heart disease or idiopathic issues. The patient has not had any angina or anginal equivalent symptomatology. His BNP is elevated and probably some pulmonary vascular congestion on chest x-ray. He has been diuresed. I would like to place this patient on low-dose beta- rosanna and ARB. We will monitor this. I would like to also tomorrow do a cardiac perfusion study using a resting study with Lexiscan. This at least give us some idea about his perfusion. I would like to avoid doing a heart catheterization in light of his recent platelet counts being low. I discussed this with Mr. French. CC: Devon Britt MD - Home Medications and Allergies Home Medications: Home Medications Medication Instructions Recorded Confirmed Type Citalopram [CeleXA] 20 mg PO QAM 10/26/14 10/30/16 History HYDROcodone/ACETAMIN 5-325 [[place] 1 tablet PO Q6H PRN 10/26/14 10/30/16 History 5-325] Temazepam [Restoril] 15 mg PO BEDTIME 10/26/14 10/30/16 History Dorzolamide 2% Oph Soln [Trusopt 1 drop RIGHT EYE BID 12/08/14 10/30/16 History 2% Oph Soln] Timolol Maleate [Timolol 0.5% Oph 1 drop RIGHT EYE BID 12/08/14 10/30/16 History Soln] Aspirin [Ecotrin] 81 mg PO DAILY 01/21/16 10/30/16 History Coenzyme Q10 100 mg PO DAILY 01/21/16 10/30/16 History Tamsulosin [Flomax] 0.4 mg PO BEDTIME 01/21/16 10/30/16 History ALPRAZolam [Xanax] 0.25 mg PO TID PRN 07/04/16 10/30/16 History Magnesium Chloride [Slow Mag] 64 mg PO DAILY 07/04/16 10/30/16 History Ondansetron HCl [Zofran Tab] 8 mg PO TID PRN 07/04/16 10/30/16 History Dicyclomine Cap/Tab [Bentyl 10 mg PO DAILY PRN 07/07/16 10/30/16 History Cap/Tab] Omeprazole [Prilosec] 20 mg PO BID 10/30/16 10/30/16 History Allergies/Adverse Reactions: Allergies Allergy/AdvReac Type Severity Reaction Status Date / Time Penicillins Allergy Intermediate Gastrointestinal Verified 08/10/15 12:57 Upset Sulfa (Sulfonamide Allergy Verified 10/30/16 13:54 Antibiotics) nalbuphine [From Nubain] AdvReac Intermediate Hallucinati Verified 08/10/15 12: 57 ng - Constitutional Constitutional: Present: as per HPI - EENT Eyes: Present: loss of vision, requires corrective lense Ears: Present: decreased hearing. Absent: ear pain, tinnitus Nose, mouth and throat: Present: epistaxis. Absent: dysphagia, headache(s), neck pain - Cardiovascular Cardiovascular: Present: dyspnea on exertion, lightheadedness, orthopnea. Absent: chest pain at rest, chest pain with activity, diaphoresis, edema, radiating jaw, neck or arm pain, palpitations - Respiratory Respiratory: Present: cough, dyspnea on exertion. Absent: hemoptysis, wheezing - Gastrointestinal Gastrointestinal: Present: constipation, diarrhea, nausea, vomiting. Absent: abdominal pain, hematemesis, hematochezia, melena - Genitourinary Genitourinary: Absent: dysuria, hematuria - Musculoskeletal Musculoskeletal: Present: limited range of motion, muscle weakness. Absent: back pain - Neurological Neurological: Present: abnormal gait, dizziness, headache(s). Absent: confusion , frequent falls, syncope - Psychiatric Psychiatric: Absent: anxiety, depression - Endocrine Endocrine: Present: fatigue - Hematologic/Lymphatic Hematologic/Lymphatic: Present: easy bruising. Absent: easy bleeding Medical,Surgical,& Family Hx - Medical History Cardio: History of: Hypertension Psychological: History of: Depression HEENT: History of: Eye Problem (Macular pucker), Glaucoma Endocrine: History of: Endocrine Cancer (Non-Hogdkins lymphoma) Rheumatology: History of;: Gout Respiratory: History of: Bronchitis, Pneumonia Gastrointestinal: History of: Diverticulitis/ Diverticulosis, GERD Hematology: History of: Blood Disorders (myelodysplastic syndrome, history of lymphoma, followed by Dr. Britt) Other: History of: Cancer - Surgical History HEENT Surgeries: Surgical HX of: Eye Surgery (BILATERAL CATARACT,MACULAR PUCKER) Abdominal Surgeries: Surgical HX of: Cholecystectomy, Colonoscopy, EGD Orthopedic Surgeries: Surgical HX of;: Orthopedic Surgery (right humerus) - Family History Family History: Reports;: Family Diabetes (Father), Family Heart Disease ( Daughter) - Social History Smoking Status: Never smoker Have you smoked in the last 12 months: No Frequency of Alcohol Use: None Type of Drug Use: None Marital Status: Lives With:: Spouse Functional capacity: uses cane/walker Physical Examination Vital Signs Temp Pulse Resp BP Pulse Ox 97.6 F 57 L 20 135/62 96 10/30/16 13:33 10/30/16 13:33 10/30/16 13:33 10/30/16 13:33 10/30/16 13:33 General: Present: No Apparent Distress HEENT: Present: PERRL, Mucus Membranes Moist Neck: Present: Supple Neck, Midline Trachea, No Bruit Cardiac: Present: Reg Rate and Rhythm, No Murmur Lungs: Present: Normal Breath Sounds, Oxygen (Via nasal mask), No Wheeze, Rales , Rhonchi Neuro: Absent: Resting Tremor, Essential Tremor Abdomen: Present: Soft, Active Bowel Sounds, Non-Tender. Absent: Distended Skin: Absent: Rash, Suspicious Lesions Musculoskeletal: Present: Decreased Range of Motion Gait: Present: Poor Gait Extremities: Present: No Edema, Normal Upper Extr. Pulses, Normal Lower Extr. Pulses. Absent: Normal Gait Result/EKG - Labs CBC & BMP: 11/05/16 03:10 11/05/16 03:10 Lab Results: I have reviewed the past 24 hour labs Labs: Laboratory Results - last 24 hr 11/05/16 11/05/16 11/05/16 03:10 03:10 03:10 WBC 3.7 L D RBC 3.02 L Hgb 10.2 L Hct 30.0 L MCV 99.3 MCH 34 MCHC 34.0 RDW 18.5 H Plt Count 91 L D MPV 11.7 Neut % (Auto) 59.9 Lymph % (Auto) 25.5 [place] % (Auto) 12.2 Eos % (Auto) 1.6 Baso % (Auto) 0.5 Neut # (Auto) 2.2 Lymph # (Auto) 0.9 L [place] # (Auto) 0.5 Eos # (Auto) 0.1 Baso # (Auto) 0.0 Total Counted 100 Immature Gran % 0.3 Nucleated RBC % 0.0 Immature Gran # 0.01 Segmented Neutrophils 66 Band Neutrophils 1 Lymphocytes 24 Monocytes 8 Eosinophils 1 Nucleated RBCs # 0.00 Platelet Estimate Decreased Immature Plt Fraction 0.0 Hypochromasia 1+ Anisocytosis 1+ Macrocytosis 1+ Ovalocytes Few Morphology Comment Sodium 139 Potassium 4.5 Chloride 106 Carbon Dioxide 31 Anion Gap 6.5 BUN 17 Creatinine 1.20 GFR Calculation 71 BUN/Creatinine Ratio 14.00 Glucose 106 Calculated Osmolality 278.5 Calcium 8.0 L Magnesium 1.8 Total Bilirubin 1.30 H AST 14 ALT 17 Alkaline Phosphatase 82 B-Natriuretic Peptide 1460 H Total Protein 5.9 L Albumin 3.1 L Globulin 2.8 Albumin/Globulin Ratio 1.1 - Diagnostic Findings Procedure: Chest x-ray: report reviewed by me Joselyn, Devon Arteaga MD, personally performed the services described in this documentation, ascribed by Gabbi Smith RN in my presence, and it is both accurate and complete .
[2016-11-05] MEDS: CARVEDILOL 3.125 MG TABLET PO SCH (20:49)
[2016-11-05] MEDS: ALPRAZolam 0.25 MG TABLET PO PRN (20:49)
[2016-11-05] MEDS: TAMSULOSIN 0.4 MG CAPSULE PO SCH (20:50)
[2016-11-05] MEDS: TEMAZEPAM 15 MG CAPSULE PO SCH (20:50)
[2016-11-06 06:07] LABS: Magnesium 1.7 MG/DL (1.8-2.4); Osmolality,Calculated 282.3 MOS/KG (273-304); Potassium 4.8 MMOL/L (3.5-5.1)
[2016-11-06] MEDS: ALBUTEROL/IPRATROPIUM 3 ML NEB RESP TX SCH ×2 (07:14→19:42)
--- NOTE | 2016-11-06 08:23 | Pulmonology Progress Note ---
Pulmonary - PN: Subj Interval history: 81-year-old man with pneumonia and myelodysplastic syndrome. He has developed congestive heart failure. BNP 1460, ejection fraction 20-25%. Chest x-ray certainly looks wet. I agreed that his pneumonia is improved symptomatically. Cardiology is to see him. He is getting Lasix and Zaroxolyn and we have stopped his IV fluids. Nosebleed has subsided. Exam (Progress Note) - Constitutional Vitals: Period Temp Pulse Resp BP Sys/Singh Pulse Ox Last 24 Hr 97.8 F-99.4 F 60-80 17-20 93-124/54-64 93-97 Exam: Patient's alert and oriented. Vital signs normal. Pupils react to light. Mild excoriation anterior triangle left nasal septum. Throat is clear. Neck supple no bruits. Chest reveals bibasilar crackles bilaterally. Heart normal rate rhythm no murmurs. Abdomen soft nontender no masses. Extremities no clubbing or cyanosis. Calves nontender. 1+ peripheral edema. Results - Labs CBC & BMP: 11/05/16 03:10 11/06/16 04:51 Lab Results: I have reviewed the past 24 hour labs Assessment and Plan (1) Congestive heart failure Status: Acute Assessment and plan: He had an elevated BNP prior to admission. He is +8 L on his IV fluids I and O. Has developed rales and jugular venous distention. Has severe orthopnea. We need to diurese him, stop IV fluids, obtain echocardiogram. Certainly feel he has a superimposed pneumonia as well. He is on good antibiotic however will add Merrem. 11/05/2016 BNP 1460. LV ejection fraction 20-25%. Clearly has a cardiomyopathy. Cardiology to see. Diuresing. 11/06/2016 BNP down to 1100. Patient has a history of getting Adriamycin in the past but reportedly had normal LV ejection fraction at the end of that. Getting cardiac evaluation for cause of his cardiomyopathy. Still has rales. We are vigorously diuresing him. Watch renal function. Creatinine 1.3 today. Current Visit: Yes (2) Left lower lobe pneumonia Status: Acute Assessment and plan: Has a left lower lobe pneumonia on admission. Also has a right upper lobe infiltrate that may be interstitial fluid. Will add Merrem 11/05/2016 clinically improved. 11/06/2016 pneumonia is clinically improved. Difficult to feel with the superimposed edema. Current Visit: Yes (3) MDS (myelodysplastic syndrome) Status: Acute Assessment and plan: Immunocompromise from this. Managed by Dr. Britt. 11/05/16 immunocompromise due to myelodysplastic syndrome. Current Visit: Yes
--- NOTE | 2016-11-06 08:45 | Oncology Progress Note ---
Assessment and Plan (1) Left lower lobe pneumonia Status: Acute Assessment and plan: The patient will receive broad-spectrum antibiotics with close observation of his hematologic parameters. Plan to repeat chest x-ray on Thursday Current Visit: Yes Oncology Subjective PN Interval history: Stable overnight other than insomnia. Patient is sleeping on one pillow at this time. Chart reviewed with plans for nuclear stress test later today. His lungs are clear in the upper lobes bilaterally posteriorly. Heart rhythm is regular. Abdomen is nontender. No peripheral edema. Mental status is appropriate. Acceptable electrolytes today. BNP 1100. Continuing antibiotics. Has been started on losartan and Coreg. I might consider for discharge home tomorrow if no further inpatient workup is necessary Exam - Constitutional Vitals: Period Temp Pulse Resp BP Sys/Singh Pulse Ox Last 24 Hr 97.8 F-99.4 F 60-80 17-20 93-124/54-64 93-97 Results - Labs CBC & BMP: 11/05/16 03:10 11/06/16 04:51
--- NOTE | 2016-11-06 09:35 | Event Note ---
Patient underwent Lexiscan Cardiolite without difficulty. Patient had no chest pain, heaviness, or tightness. No dizziness, lightheadedness, or syncope. Patient reported being "slightly winded" during administration of Lexiscan. He had no significant EKG changes noted. Patient now to nuclear medicine for final scan. Dr. Arteaga to read, interpret, and advise.
[2016-11-06] MEDS ORDERED: REGADENOSON 0.4 MG/5 ML SYRINGE IV ONE (10:07)
[2016-11-06] MEDS: LOSARTAN 25 MG TABLET PO SCH (10:42)
[2016-11-06] MEDS: DICYCLOMINE 10 MG CAPSULE PO SCH (10:42)
[2016-11-06] MEDS: ASPIRIN EC 81 MG TABLET PO SCH (10:42)
[2016-11-06] MEDS: CITALOPRAM 20 MG TABLET PO SCH (10:42)
[2016-11-06] MEDS: PANTOPRAZOLE 40 MG TABLET PO SCH ×2 (10:42→20:42)
[2016-11-06] MEDS: MAGNESIUM CHLORIDE 64 MG TABLET PO SCH (10:42)
[2016-11-06] MEDS: CARVEDILOL 3.125 MG TABLET PO SCH ×2 (10:42→20:42)
[2016-11-06] MEDS: metOLazone 2.5 MG TABLET PO SCH (10:42)
[2016-11-06] MEDS: COENZYME Q10 100 MG CAPSULE PO SCH (10:43)
[2016-11-06] MEDS: TIMOLOL 0.5% OPH SOLN 5 ML BOTTLE RIGHT EYE SCH ×2 (10:43→20:47)
[2016-11-06] MEDS: DORZOLAMIDE 2% OPH SOLN 10 ML BOTTLE RIGHT EYE SCH ×2 (10:43→20:47)
[2016-11-06] MEDS: ONDANSETRON 4 MG TABLET PO SCH ×3 (10:43→20:48)
[2016-11-06] MEDS: FUROSEMIDE 40 MG/4 ML VIAL IV SCH (10:45)
[2016-11-06] MEDS: MEROPENEM 500 MG in SODIUM CHLORIDE 0.9% 100 ML IV SCH ×2 (11:23→22:25)
[2016-11-06] MEDS: AZITHROMYCIN INJ 500 MG in SODIUM CHLORIDE 0.9% 250 ML IV SCH (13:58)
--- NOTE | 2016-11-06 15:54 | Nuclear Medicine Report ---
PHARMACOLOGIC STRESS TEST REPORT Test was ordered by Dr. Deshaun Arteaga. Test was performed and interpreted by Dr. Quique Strong. INDICATION: Shortness of breath, chest tightness. PROCEDURE: At rest, 10 mCi of 99-Technetium labeled Sestamibi was injected and rest images were obtained. 0.4 mg Lexiscan was injected IV. Post pharmacological stress, 30 mCi of 99-Technetium labeled Sestamibi was injected and post stress images were obtained. FINDINGS: At rest, sinus rhythm, frequent PACs, no significant ST-T changes. Heart rate 67 beats per minute, blood pressure 120/70 mmHg. Post Lexiscan injection, the heart rate was 86 beats per minute, PAC and PVCs noted. The blood pressure was 120/68. No significant ST-T changes, compared to the baseline. The patient had mild dyspnea on exertion, but no chest pain. Rest and post pharmacological stress, gated and perfusion images were reviewed. The end-diastolic volume is 192 cc, the end-systolic volume is 134 cc. The calculated left ventricular ejection fraction is 51%. The inferior wall is akinetic, the remaining segment are moderately hypokinetic. Perfusion images show a large area in the basilar/mid and apical inferior segments of severely decreased activity was assessed on post Lexiscan injection, suggestive of old myocardial disease. There is no evidence of reversible ischemia. CONCLUSION: 1. CLINICALLY AND ELECTRICALLY NEGATIVE LEXISCAN STRESS TEST. 2. DILATED LEFT VENTRICLE, WITH SEVERELY DECREASED SYSTOLIC FUNCTION, WITH SUSPECTED OLD MYOCARDIAL DISEASE IN THE INFERIOR REGION, WITHOUT REVERSIBLE ISCHEMIA. 3. THIS IS A HIGH RISK TEST FOR FUTURE CARDIOVASCULAR EVENTS. Procedure performed and interpreted at [facility] Department of Radiology. [facility]ENTER[facility]ua
[2016-11-06] MEDS: FONDAPARINUX 2.5 MG/0.5 ML SYRINGE SUBCUT SCH (16:55)
--- NOTE | 2016-11-06 17:56 | Cardiology Progress Note ---
I, Gabbi Smith RN, am scribing for, and in the presence of, Devon Arteaga MD 17:51. Assessment and Plan (1) Dyspnea on exertion Status: Acute Assessment and plan: This has improved, and a stress test does does not reveal any inducible ischemia. Current Visit: Yes (2) Left lower lobe pneumonia Status: Acute Assessment and plan: He is on IV antibiotics, pulmonary medicine is following. Current Visit: Yes (3) Anemia Status: Acute Assessment and plan: Dr. Britt is managing. Current Visit: No (4) Cardiomyopathy Status: Acute Assessment and plan: It is symptomatic. It may be secondary to his chemotherapy previously. It is really not appear to be ischemic in nature. I think at this time aggressive risk factor modification and therapy and follow-up. This may improve some but we will see. If it is not a consideration for AICD in the future.Etiology of this is unknown. Certainly if he does not have improvement consideration for AICD in the future. 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 Britt Summary: Mr. French is a 81 year old male who last saw Dr. De in 2010. He reports having a stress test by Dr. De that was normal. He denies ever having had a heart catheterization. He had an echocardiogram March 2014 with ejection fraction of 55%. Dr. Britt is presently treating him for pancytopenia and a high-grade myelodysplastic syndrome. He has a history of hypertension, macular pucker, non-Hodgkin's lymphoma, gout, pneumonia, and GERD. Surgical history includes numerous eye surgeries, cholecystectomy, and right arm surgery. Family history is positive for father with diabetes and daughter with heart problems. He reports he is a lifetime non-smoker. He reports that for the last 6 weeks he has been more tired and weak than usual. He is also had more dyspnea on exertion as well as orthopnea and a cough. He presented to Dr. Britt's office October 30 with these symptoms and was sent for admission to [facility]. Initial chest x-ray suggested left lower lobe pneumonia and x-ray done November 03 showed that it was worsening with infiltrate then present in the right upper lobe. Blood cultures have been negative. He was on personnel monitor during the early part of his admission and was noted to be in sinus rhythm. He did have some short runs of V. tach. Echocardiogram done November 04 showed severe systolic dysfunction with global hypokinesis and ejection fraction of 20-25%. November 05, 2016: Mr. French is seen this morning sitting up in a chair. He has oxygen and use via nasal mask after having a nosebleed this morning. He has been given IV Lasix. He states he has diuresed well from this and his breathing has improved. He denies any chest pain or palpitations. Vital signs have been stable. He is not on a monitor but heart seems regular on examination. BNP this morning was 1460. Patient personally interviewed and examined and chart reviewed. I discussed his case with Gabbi Smith RN. The patient is doing generally fairly well but has now developed a cardiomyopathy compared to echocardiogram carried out to you and a half years ago. This may be related to his chemotherapy agents. Other issues could be secondary to ischemic heart disease or idiopathic issues. The patient has not had any angina or anginal equivalent symptomatology. His BNP is elevated and probably some pulmonary vascular congestion on chest x-ray. He has been diuresed. I would like to place this patient on low-dose beta- rosanna and ARB. We will monitor this. I would like to also tomorrow do a cardiac perfusion study using a resting study with Lexiscan. This at least give us some idea about his perfusion. I would like to avoid doing a heart catheterization in light of his recent platelet counts being low. I discussed this with Mr. French. November 06, 2016: Mr. French denies any chest pain this morning and states his rating continues to improve. Vital signs been stable throughout the night. He is on Lasix 40 mg IV daily and metolazone 2.5 p.o. daily, continues to diurese well. Losartan 25 mg daily and carvedilol 3.125 mg twice daily have been added to his medication regimen. He is scheduled for stress testing this morning. Magnesium this morning is 1.7, he is on Slow-Mag 64 mg daily. Patient personally interviewed and examined today and chart reviewed. The patient feels better in general today. His current perfusion study really does not reveal any evidence of perfusion abnormalities. He has global hypokinesis. In light of not having any perfusion abnormalities or ischemia induced I would not carry out further evaluation this regard. At this time his knees aggressive medical therapy for his cardiomyopathy as much as he will tolerate. This all can be adjusted as an outpatient we can follow with the patient in approximately 2 weeks. Exam (Progress Note) - Constitutional Vitals: Period Temp Pulse Resp BP Sys/Singh Pulse Ox Last 24 Hr 97.8 F-99.4 F 60-80 17-20 93-124/54-64 93-97 General appearance: normal weight, no acute distress - Head Head exam: Absent: abrasion, hematoma - Eye Eye exam: Absent: periorbital swelling, laceration to eyelids - Neck Neck exam: Absent: tenderness - Respiratory Respiratory exam: Present: clear to auscultation bilaterally. Absent: accessory muscle use, chest wall tenderness - Cardiovascular Cardiovascular exam: Present: regular rate and rhythm. Absent: diastolic murmur , systolic murmur - GI/Abdominal GI/Abdominal exam: Present: normal bowel sounds, soft. Absent: distended, tenderness - Extremities Exam Extremities exam: Absent: calf tenderness, edema - Neurological Exam Neurological exam: Present: alert, oriented X3 - Psychiatric Psychiatric exam: Present: normal affect, normal mood - Skin Skin exam: Present: warm, dry Result/EKG - Labs CBC & BMP: 11/05/16 03:10 11/06/16 04:51 Lab Results: I have reviewed the past 24 hour labs Labs: Laboratory Results - last 24 hr 11/05/16 11/06/16 11/06/16 12:00 04:51 04:51 Sodium 141 Potassium 4.8 Chloride 104 Carbon Dioxide 29 Anion Gap 12.8 BUN 19 H Creatinine 1.30 GFR Calculation 64 BUN/Creatinine Ratio 14.00 Glucose 106 Calculated Osmolality 282.3 Calcium 8.0 L Magnesium 1.7 L B-Natriuretic Peptide 1133 H Urine Color Colorless Urine Appearance Clear Urine pH 6.0 Ur Specific [place] 1.003 Urine Protein Negative Urine Glucose (UA) Negative Urine Ketones Negative Urine Blood Small Urine Nitrate Negative Urine Bilirubin Negative Urine Urobilinogen < 2.0 H Urine Leukocytes Negative Urine RBC 9 Urine WBC <1 Ur Squamous Epith Cells Occasional Ur Culture Indicated? Not indicated - Diagnostic Findings Procedure: Chest x-ray: report reviewed by me Chandler Alves John Timothy, MD, personally performed the services described in this documentation, ascribed by Gabbi Smith RN in my presence, and it is both accurate and complete 1 .
[2016-11-06] MEDS ORDERED: HEPARIN LOCK FLUSH 500 UNIT/5 ML SYRINGE IV ONE (18:16)
[2016-11-06] MEDS ORDERED: HEPARIN LOCK FLUSH 500 UNIT/5 ML SYRINGE IV PRN (18:39)
[2016-11-06] MEDS: ALPRAZolam 0.25 MG TABLET PO PRN (20:42)
[2016-11-06] MEDS: TAMSULOSIN 0.4 MG CAPSULE PO SCH (20:42)
[2016-11-06] MEDS ORDERED: TEMAZEPAM 15 MG CAPSULE PO SCH (21:00)
[2016-11-07] MEDS: ALBUTEROL/IPRATROPIUM 3 ML NEB RESP TX SCH (07:30)
--- NOTE | 2016-11-07 08:17 | XRay Report ---
XR chest 1V portable Indication: Congestive heart failure Comparison: 05 November 2016 Findings: The heart and mediastinum are stable in size and configuration. Right subclavian Port-A-Cath is unchanged in position. The pulmonary vascularity is increased with bilateral increased interstitial lung density similar to previous. No other lung infiltrates, effusions, pneumothorax or other abnormality is demonstrated. Impression: Findings suggest cardiac decompensation similar to previous. PROCEDURE INTERPRETED AT [facility] DEPARTMENT OF RADIOLOGY Final Report Signed by: Dr. Saqib Kidd
--- NOTE | 2016-11-07 08:48 | EKG Report ---
Stationary ECG Study [facility] Test Date: 11/07/2016 8:49:36 AM Pat Name: CHRISTIE ESCOBEDO Department: Room: 423 Gender: M Communications Attendant: DEEPALI : 1935 Requested by: Devon Meade Order Number: [id number] Reading MD: KRISTIN JOHNSON Intervals Lavina Rate: 71 P: 40 MT: 135 QRS: 34 QRSD: 104 T: 151 QT: 408 QTc: 430 Interpretive Statements SINUS RHYTHM WITH SINUS ARRHYTHMIA ST DEVIATION AND MODERATE T-WAVE ABNORMALITY, CONSIDER ANTERIOR ISCHEMIA Electronically Signed On 11-07-16 18:21:16 CDT by KRISTIN JOHNSON [email or web address]
[2016-11-07 09:03] VITALS: BP 135/60
[2016-11-07] MEDS: FUROSEMIDE 40 MG/4 ML VIAL IV SCH (09:12)
[2016-11-07] MEDS: CARVEDILOL 3.125 MG TABLET PO SCH (09:13)
[2016-11-07] MEDS: DICYCLOMINE 10 MG CAPSULE PO SCH (09:13)
[2016-11-07] MEDS: ONDANSETRON 4 MG TABLET PO SCH (09:13)
[2016-11-07] MEDS: CITALOPRAM 20 MG TABLET PO SCH (09:13)
[2016-11-07] MEDS: COENZYME Q10 100 MG CAPSULE PO SCH (09:13)
[2016-11-07] MEDS: MAGNESIUM CHLORIDE 64 MG TABLET PO SCH (09:13)
[2016-11-07] MEDS: PANTOPRAZOLE 40 MG TABLET PO SCH (09:13)
[2016-11-07] MEDS: ASPIRIN EC 81 MG TABLET PO SCH (09:14)
[2016-11-07] MEDS: TIMOLOL 0.5% OPH SOLN 5 ML BOTTLE RIGHT EYE SCH (09:14)
[2016-11-07] MEDS: LOSARTAN 25 MG TABLET PO SCH (09:14)
[2016-11-07] MEDS: metOLazone 2.5 MG TABLET PO SCH (09:14)
[2016-11-07] MEDS: DORZOLAMIDE 2% OPH SOLN 10 ML BOTTLE RIGHT EYE SCH (09:14)
--- NOTE | 2016-11-07 09:31 | Pulmonology Progress Note ---
Pulmonary - PN: Subj Interval history: 81-year-old man with pneumonia and myelodysplastic syndrome. He has developed congestive heart failure. BNP 1460, ejection fraction 20-25%. Chest x-ray certainly looks wet. I agreed that his pneumonia is improved symptomatically. Cardiology is to see him. He is getting Lasix and Zaroxolyn and we have stopped his IV fluids. Nosebleed has subsided. 11/07/2016 patient is feeling better. Chest x-ray shows improvement. Still has some interstitial edema in the right lower lung field. His pneumonia has clearly improved. Antibiotics can be discontinued. He will need diuretics going forward. Defer to cardiology for further management of his nonischemic cardiomyopathy. Exam (Progress Note) - Constitutional Vitals: Period Temp Pulse Resp BP Sys/Singh Pulse Ox Last 24 Hr 97.6 F-98.3 F 55-74 18-20 101-135/49-60 91-98 Exam: Patient's alert and oriented. Vital signs normal. Pupils react to light. Mild excoriation anterior triangle left nasal septum. Throat is clear. Neck supple no bruits. Chest reveals a few crackles at the right base. Heart normal rate rhythm no murmurs. Abdomen soft nontender no masses. Extremities no clubbing or cyanosis. Calves nontender. 1+ peripheral edema. Results - Labs CBC & BMP: 11/05/16 03:10 11/06/16 04:51 Lab Results: I have reviewed the past 24 hour labs - Diagnostic Findings Procedure: Chest x-ray: image reviewed by me (Improved. Still has some interstitial edema in the right mid to lower lung.) Assessment and Plan (1) Congestive heart failure Status: Acute Assessment and plan: He had an elevated BNP prior to admission. He is +8 L on his IV fluids I and O. Has developed rales and jugular venous distention. Has severe orthopnea. We need to diurese him, stop IV fluids, obtain echocardiogram. Certainly feel he has a superimposed pneumonia as well. He is on good antibiotic however will add Merrem. 11/05/2016 BNP 1460. LV ejection fraction 20-25%. Clearly has a cardiomyopathy. Cardiology to see. Diuresing. 11/06/2016 BNP down to 1100. Patient has a history of getting Adriamycin in the past but reportedly had normal LV ejection fraction at the end of that. Getting cardiac evaluation for cause of his cardiomyopathy. Still has rales. We are vigorously diuresing him. Watch renal function. Creatinine 1.3 today. 11/07/2016 apparent nonischemic cardiomyopathy. May be related to previous chemotherapy. Ischemia screen was negative. Pneumonia has improved. Cardiology needs to follow him for his cardiomyopathy. Presently on diuretics which need to be continued post discharge. He will need renal function monitored along with that. Current Visit: Yes (2) Left lower lobe pneumonia Status: Acute Assessment and plan: Has a left lower lobe pneumonia on admission. Also has a right upper lobe infiltrate that may be interstitial fluid. Will add Merrem 11/05/2016 clinically improved. 11/06/2016 pneumonia is clinically improved. Difficult to feel with the superimposed edema. 11/07/2016 pneumonia much improved. Antibiotics can be stopped. Current Visit: Yes (3) MDS (myelodysplastic syndrome) Status: Acute Assessment and plan: Immunocompromise from this. Managed by Dr. Britt. 11/05/16 immunocompromise due to myelodysplastic syndrome. 11/07/[address] Britt. Current Visit: Yes
--- NOTE | 2016-11-07 09:33 | Discharge Summary ---
Hospital Course - Hospital Course Hospital Course: Patient was admitted 9 days prior from the oncology clinic with shortness of breath and left-sided inspiratory crackles. He has received 9 days of antibiotics though during the course of the hospitalization we have focused primarily on his new onset cardiac issues. Elevated BNP and decreased ejection fraction on echocardiogram are noted with diuresis initiated. [place] reviewed from yesterday with no reversible findings. He will follow-up with Dr. Arteaga as outpatient. At this time I will prescribe carvedilol, losartan and low-dose daily diuretics. I do not think he needs further antibiotics. He is followed by me for high-risk myelodysplastic syndrome with a history of large B- cell lymphoma around 2012. I will see him in approximately 2 weeks in the office with labs. His physical examination today shows him to be alert and awake in no acute distress. He has very faint inspiratory crackles limited to the left base. No wheezes. No peripheral edema abdomen soft and nontender. Heart rhythm is regular. Diagnosis - Discharge Diagnosis (1) Left lower lobe pneumonia Status: Acute Discharge Plan - Discharge Medications No Action Citalopram [CeleXA] 20 mg PO QAM Temazepam [Restoril] 15 mg PO BEDTIME HYDROcodone/ACETAMIN 5-325 [Monson 5-325] 1 tablet PO Q6H PRN PRN Reason: Pain Timolol Maleate [Timolol 0.5% Oph Soln] 1 drop RIGHT EYE BID Dorzolamide 2% Oph Soln [Trusopt 2% Oph Soln] 1 drop RIGHT EYE BID Coenzyme Q10 100 mg PO DAILY Tamsulosin [Flomax] 0.4 mg PO BEDTIME Aspirin [Ecotrin] 81 mg PO DAILY Magnesium Chloride [Slow Mag] 64 mg PO DAILY Ondansetron HCl [Zofran Tab] 8 mg PO TID PRN PRN Reason: Nausea ALPRAZolam [Xanax] 0.25 mg PO TID PRN PRN Reason: Anxiety Dicyclomine Cap/Tab [Bentyl Cap/Tab] 10 mg PO DAILY PRN PRN Reason: Abdominal Pain Omeprazole [Prilosec] 20 mg PO BID - Follow Up or Referral - Forms/Instructions Exam - Constitutional Vitals: Period Temp Pulse Resp BP Sys/Singh Pulse Ox Last 24 Hr 97.6 F-98.3 F 55-74 18-20 101-135/49-60 91-98 DS: Provider Date of admission: 10/31/16 10:51 Primary care physician: Devon Britt MD Attending physician on admission: Devon Britt MD Consults: 10/30/16 14:08 Consult to Dietitian [CONS] Routine Reason for Dietitian: Diet Instruction 11/04/16 08:06 Consult to Physician [CONS] Routine Comment: Consult Dr. Zepeda for pneumonia Consulting Provider: Gato Zepeda Consulting Provider Notified: Yes When should Consulting Provider be notified: Now Consult to Specialist Group: Pulmonology When should Consulting Provider be notified: Now Person Notified: DR ZEPEDA NOTIFIED OF CONSULT -LEFT MESSAGE AT OFFICE Date Notified: 11/04/16 Time Notified: 08:37 11/05/16 08:21 Consult to Physician [CONS] Routine Comment: CHF Consulting Provider: Cardiology - [facility] Consulting Provider Notified: Yes When should Consulting Provider be notified: Now Consult to Specialist Group: Cardiology When should Consulting Provider be notified: Now Person Notified: ALCIDES Date Notified: 11/05/16 Time Notified: 08:24 Discharging clinician: Devon Britt MD
[2016-11-07] MEDS: MEROPENEM 500 MG in SODIUM CHLORIDE 0.9% 100 ML IV SCH (09:55)
[2016-11-07] MEDS: AZITHROMYCIN INJ 500 MG in SODIUM CHLORIDE 0.9% 250 ML IV SCH (10:31)
== END 2016-11-07 12:45 | disposition home or self-care (01) | DRG 194 ==
LOC: N.4E
PROVIDERS: ADMIT Specialist; ATTEND Specialist

== ENCOUNTER 2017-03-17 14:00 | Inpatient (IN) ==
[2017-03-17] MEDS ORDERED: BENZTROPINE 2 MG/2 ML AMP IV PRN (17:12)
[2017-03-17] MEDS ORDERED: diphenhydrAMINE CAP 25 MG CAPSULE PO PRN (17:12)
[2017-03-17] MEDS ORDERED: ALUMINUM/MAGNES/SIMETH MAX STR 30 ML UDCUP PO PRN (17:12)
[2017-03-17] MEDS ORDERED: chlorproMAZINE 25 MG TABLET PO PRN (17:12)
[2017-03-17] MEDS ORDERED: chlorproMAZINE INJ 25 MG in SODIUM CHLORIDE 0.9% 100 ML IV PRN (17:12)
[2017-03-17] MEDS ORDERED: ONDANSETRON 4 MG/2 ML VIAL IV PRN (17:12)
[2017-03-17] MEDS ORDERED: MYLANTA/LIDO VISC 2:1 300 ML BOTTLE SWISH/SPIT PRN (17:12)
[2017-03-17] MEDS ORDERED: traMADol 50 MG TABLET PO PRN (17:12)
[2017-03-17] MEDS ORDERED: chlorproMAZINE INJ 50 MG in SODIUM CHLORIDE 0.9% 100 ML IV PRN (17:12)
[2017-03-17] MEDS ORDERED: guaiFENesin 200 MG/10 ML UDCUP PO PRN (17:12)
[2017-03-17] MEDS ORDERED: LOPERAMIDE 2 MG CAPSULE PO PRN ×2 (17:12)
[2017-03-17] MEDS ORDERED: ACETAMINOPHEN 325 MG TABLET PO PRN (17:12)
[2017-03-17] MEDS ORDERED: LACTULOSE 20 GM/30 ML UDCUP PO PRN (17:12)
[2017-03-17] MEDS ORDERED: TEMAZEPAM 7.5 MG CAPSULE PO PRN (17:12)
[2017-03-17] MEDS ORDERED: MYLANTA/LIDO VISC 2:1 300 ML BOTTLE SWISH/SWAL PRN (17:12)
[2017-03-17] MEDS ORDERED: ALPRAZolam 0.25 MG TABLET PO PRN (17:12)
[2017-03-17] MEDS ORDERED: PROMETHAZINE INJ 25 MG in SODIUM CHLORIDE 0.9% 50 ML IV PRN (17:12)
[2017-03-17] MEDS ORDERED: MAGNESIUM HYDROXIDE SUSP 30 ML UDCUP PO PRN (17:12)
[2017-03-17] MEDS ORDERED: SODIUM CHLORIDE 0.9% 1,000 ML IV SCH (17:30)
[2017-03-17 17:50] LABS: Albumin 3.5 G/DL (3.4-5.0); Bilirubin,Total 1.3 MG/DL (0.2-1.0); Calcium 8.4 MG/DL (8.5-10.1); Osmolality,Calculated 285.4 MOS/KG (273-304); Potassium 4.5 MMOL/L (3.5-5.1); Total Protein 6.4 G/DL (6.4-8.3)
[2017-03-17] MEDS: cefTRIAXone 1,000 MG in SYRINGE 1 EACH IV SCH (17:59)
[2017-03-17 19:28] LABS: Apearance,Urine CLEAR (Clear); Bilirubin,Urine Negative (Negative); Blood, Urine Negative (Negative); Glucose,Urine (UA) Negative (Negative); Ketones,Urine Negative (Negative); Nitrite,Urine Negative (Negative); Protein,Urine Negative; RBC,Urine <1 /HPF (0-4); Squamous Epithelial Cell,Urine Occasional /HPF (0-10); Urine Color Yellow (Yellow); Urine Specific Gravity 1.013 (1.001-1.035); Urine Urobilinogen < 2.0 EU/DL (0.2-1.0); WBC,Urine <1 /HPF (0-6)
[2017-03-17] MEDS: VANCOMYCIN INJ 1,250 MG in SODIUM CHLORIDE 0.45% 250 ML IV SCH (20:09)
[2017-03-18 05:07] LABS: Basophils % 0.3 % (0.0-0.8); Eosinophils # 0.1 10*3/uL (0.0-0.87); Eosinophils % 2.4 % (0.00-10.9); Hematocrit 29.1 VOL% (42.0-52.0); Hemoglobin 10.1 GM/DL (14.0-18.0); Immature Granulocytes % 0.3 %; Immature Granulocytes Absolute 0.01 #; Lymphocytes # 0.9 10*3/uL (1.4-4.0); Lymphocytes % 30.6 % (21.2-54.2); Mean Corpuscular HGB Conc 34.7 GM/DL (32-36); Mean Corpuscular Hemoglobin 34 PG (27-34); Mean Corpuscular Volume 98.3 FL (87-102); Monocytes # 0.4 10*3/uL (0.11-0.8); Monocytes % 14.8 % (1.7-12.7); Neutrophils # 1.5 10*3/uL (1.4-7.4); Neutrophils % 51.6 % (38.7-73.9); Red Blood Count 2.96 MC/CUMM (3.8-5.5); Red Cell Distribution Width 17.5 % (9.3-17.3)
[2017-03-18 05:13] LABS: Platelet Count 49 T/CUMM (130-400)
[2017-03-18 05:24] LABS: Elliptocytes Few; Giant Platelets Few; Hypochromasia 1+; Macrocytosis Slight; Platelet Estimate Decreased
[2017-03-18] MEDS: cefTRIAXone 1,000 MG in SYRINGE 1 EACH IV SCH (17:45)
[2017-03-18] MEDS: VANCOMYCIN INJ 1,250 MG in SODIUM CHLORIDE 0.45% 250 ML IV SCH (20:17)
[2017-03-19 05:55] LABS: Basophils % 0.9 % (0.0-0.8); Eosinophils # 0.1 10*3/uL (0.0-0.87); Hemoglobin 9.7 GM/DL (14.0-18.0); Immature Granulocytes % 1.7 %; Immature Granulocytes Absolute 0.04 #; Lymphocytes # 0.7 10*3/uL (1.4-4.0); Lymphocytes % 29.9 % (21.2-54.2); Mean Corpuscular HGB Conc 33.4 GM/DL (32-36); Mean Corpuscular Hemoglobin 34 PG (27-34); Mean Corpuscular Volume 102.1 FL (87-102); Mean Platelet Volume 11.5 FL (9.6-12.0); Monocytes # 0.4 10*3/uL (0.11-0.8); Monocytes % 15.2 % (1.7-12.7); Neutrophils # 1.1 10*3/uL (1.4-7.4); Neutrophils % 49.3 % (38.7-73.9); Red Blood Count 2.84 MC/CUMM (3.8-5.5); Red Cell Distribution Width 17.4 % (9.3-17.3); White Blood Count 2.3 T/CUMM (4-12)
[2017-03-19 05:57] LABS: Platelet Count 49 T/CUMM (130-400)
[2017-03-19 06:36] LABS: Albumin 2.8 G/DL (3.4-5.0); Bilirubin,Total 0.9 MG/DL (0.2-1.0); Magnesium 2.1 MG/DL (1.8-2.4); Osmolality,Calculated 288.1 MOS/KG (273-304); Potassium 4.3 MMOL/L (3.5-5.1); Total Protein 5.9 G/DL (6.4-8.3)
[2017-03-19 06:41] LABS: Acanthocytes Few; Anisocytosis 2+; Band Neutrophils 5 % (0-10); Eosinophils 2 % (0-10); Lymphocytes 30 % (20-55); Macrocytosis 2+; Metamyelocytes 2 %; Ovalocytes 1+; Platelet Estimate Decreased; Segmented Neutrophils 48 % (50-85); Total Cells Counted 100
[2017-03-19] MEDS ORDERED: PEG BOTH EYES PRN (08:35)
[2017-03-19] MEDS ORDERED: PROPYLENE GLYCOL BOTH EYES PRN (08:35)
[2017-03-19] MEDS ORDERED: ONDANSETRON 4 MG TABLET PO PRN (08:35)
[2017-03-19] MEDS ORDERED: ALPRAZolam 0.25 MG TABLET PO PRN (08:35)
[2017-03-19] MEDS ORDERED: DORZOLAMIDE 2% RIGHT EYE SCH (09:00)
[2017-03-19] MEDS: CITALOPRAM 20 MG TABLET PO SCH (10:05)
[2017-03-19] MEDS: CARVEDILOL 3.125 MG TABLET PO SCH (10:06)
[2017-03-19] MEDS: FUROSEMIDE 20 MG TABLET PO SCH (10:06)
[2017-03-19] MEDS: PANTOPRAZOLE 40 MG TABLET PO SCH (10:06)
[2017-03-19] MEDS: cefTRIAXone 1,000 MG in SYRINGE 1 EACH IV SCH (17:16)
[2017-03-19] MEDS ORDERED: TIMOLOL MALEATE RIGHT EYE SCH (21:00)
[2017-03-19] MEDS ORDERED: TEMAZEPAM 15 MG CAPSULE PO SCH (21:00)
[2017-03-19] MEDS ORDERED: TAMSULOSIN 0.4 MG CAPSULE PO SCH (21:00)
[2017-03-20] MEDS: CARVEDILOL 3.125 MG TABLET PO SCH ×2 (01:05→09:14)
[2017-03-20] MEDS: PANTOPRAZOLE 40 MG TABLET PO SCH ×2 (01:05→09:14)
[2017-03-20] MEDS ORDERED: HEPARIN LOCK FLUSH 500 UNIT/5 ML SYRINGE IV ONE ×2 (05:23→14:54)
[2017-03-20 06:28] LABS: Basophils % 0.4 % (0.0-0.8); Eosinophils # 0.1 10*3/uL (0.0-0.87); Eosinophils % 2.3 % (0.00-10.9); Hematocrit 29.7 VOL% (42.0-52.0); Hemoglobin 9.9 GM/DL (14.0-18.0); Immature Granulocytes % 0.8 %; Immature Granulocytes Absolute 0.02 #; Lymphocytes # 0.8 10*3/uL (1.4-4.0); Mean Corpuscular HGB Conc 33.3 GM/DL (32-36); Mean Corpuscular Hemoglobin 34 PG (27-34); Mean Corpuscular Volume 101.7 FL (87-102); Mean Platelet Volume 10.8 FL (9.6-12.0); Monocytes # 0.4 10*3/uL (0.11-0.8); Monocytes % 14.6 % (1.7-12.7); Neutrophils # 1.4 10*3/uL (1.4-7.4); Neutrophils % 51.9 % (38.7-73.9); Platelet Count 49 T/CUMM (130-400); Red Blood Count 2.92 MC/CUMM (3.8-5.5); Red Cell Distribution Width 17.4 % (9.3-17.3); White Blood Count 2.6 T/CUMM (4-12)
[2017-03-20 07:09] LABS: Albumin 3.3 G/DL (3.4-5.0); Bilirubin,Total 0.6 MG/DL (0.2-1.0); Calcium 8.3 MG/DL (8.5-10.1); Potassium 4.6 MMOL/L (3.5-5.1); Total Protein 6.2 G/DL (6.4-8.3)
[2017-03-20 07:35] LABS: Eosinophils 4 % (0-10); Giant Platelets Few; Hypochromasia 1+; Lymphocytes 19 % (20-55); Ovalocytes Slight; Platelet Estimate Decreased; Segmented Neutrophils 67 % (50-85); Total Cells Counted 100
[2017-03-20 07:36] LABS: Macrocytosis Slight
[2017-03-20] MEDS ORDERED: BISACODYL 5 MG TABLET PO ONE (08:08)
[2017-03-20] MEDS: FUROSEMIDE 20 MG TABLET PO SCH (09:14)
[2017-03-20] MEDS: CITALOPRAM 20 MG TABLET PO SCH (09:14)
[2017-03-20 12:29] VITALS: BP 127/53
== END 2017-03-20 15:06 | disposition home or self-care (01) | DRG 810 ==
LOC: N.4E 14:50
PROVIDERS: ADMIT Specialist; ATTEND Specialist

== ENCOUNTER 2017-12-08 15:42 | Inpatient (IN) ==
[2017-12-08] MEDS ORDERED: ALBUTEROL/IPRATROPIUM 3 ML NEB RESP TX STA (16:26)
[2017-12-08] MEDS ORDERED: ACETAMINOPHEN 500 MG TABLET PO STA (16:26)
[2017-12-08] MEDS ORDERED: SODIUM CHLORIDE 0.9% 250 ML IV STA (16:26)
[2017-12-08 17:33] LABS: Apearance,Urine CLEAR (Clear); Basophils % 0.8 % (0.0-0.8); Bilirubin,Urine Negative (Negative); Blood, Urine Negative (Negative); Eosinophils % 0.8 % (0.00-10.9); Glucose,Urine (UA) Negative (Negative); Hematocrit 32.8 VOL% (42.0-52.0); Hemoglobin 10.7 GM/DL (14.0-18.0); Hyaline Casts,Urine 2 /LPF (0-3); Immature Granulocytes Absolute 0.05 #; Ketones,Urine Negative (Negative); Lymphocytes # 0.5 10*3/uL (1.4-4.0); Mean Corpuscular HGB Conc 32.6 GM/DL (32-36); Mean Corpuscular Hemoglobin 33 PG (27-34); Mean Corpuscular Volume 102.5 FL (87-102); Mean Platelet Volume 11.9 FL (9.6-12.0); Monocytes # 0.2 10*3/uL (0.11-0.8); Monocytes % 9.6 % (1.7-12.7); Mucus,Urine Occasional /LPF (Occasional); Neutrophils # 1.7 10*3/uL (1.4-7.4); Neutrophils % 68.8 % (38.7-73.9); Nitrite,Urine Negative (Negative); Platelet Count 170 T/CUMM (130-400); Protein,Urine Negative; RBC,Urine <1 /HPF (0-4); Red Cell Distribution Width 18.5 % (9.3-17.3); Urine Color Straw (Yellow); Urine Specific Gravity 1.006 (1.001-1.035); Urine Urobilinogen < 2.0 EU/DL (0.2-1.0); WBC,Urine <1 /HPF (0-6); White Blood Count 2.5 T/CUMM (4-12)
[2017-12-08 17:39] LABS: INR 1.1
[2017-12-08 17:45] LABS: Lactic Acid 1.8 MMOL/L (0.4-2.0)
[2017-12-08 17:46] LABS: Albumin 3.9 G/DL (3.4-5.0); Bilirubin,Total 1.8 MG/DL (0.2-1.0); Calcium 8.2 MG/DL (8.5-10.1); Osmolality,Calculated 286.4 MOS/KG (273-304); Potassium 4.3 MMOL/L (3.5-5.1); Total Protein 7.2 G/DL (6.4-8.3)
[2017-12-08] MEDS ORDERED: ONDANSETRON 4 MG/2 ML VIAL IV PRN (21:02)
[2017-12-08] MEDS ORDERED: CARBOXYMETHYLCELLULOSE 1% OPH SOLN BOTH EYES PRN (21:02)
[2017-12-08] MEDS: TAMSULOSIN 0.4 MG CAPSULE PO SCH (22:01)
[2017-12-08] MEDS: PANTOPRAZOLE 40 MG TABLET PO SCH (22:01)
[2017-12-08] MEDS: TIMOLOL 0.5% OPH SOLN 5 ML BOTTLE RIGHT EYE SCH (22:03)
[2017-12-08 22:06] LABS: Sedimentation Rate-Westergren 27 MM/HR (0-20)
[2017-12-08] MEDS: ALPRAZolam 0.25 MG TABLET PO SCH (22:50)
[2017-12-08] MEDS: TEMAZEPAM 15 MG CAPSULE PO SCH (22:50)
[2017-12-09] MEDS ORDERED: DORZOLAMIDE 2% OPH SOLN 10 ML BOTTLE RIGHT EYE SCH (09:00)
[2017-12-09] MEDS: MEROPENEM 1,000 MG in SODIUM CHLORIDE 0.9% 100 ML IV SCH ×2 (09:59→18:04)
[2017-12-09] MEDS: CITALOPRAM 20 MG TABLET PO SCH (10:01)
[2017-12-09] MEDS: FUROSEMIDE 40 MG TABLET PO SCH (10:01)
[2017-12-09] MEDS: AZITHROMYCIN INJ 500 MG in SODIUM CHLORIDE 0.9% 250 ML IV SCH (10:31)
[2017-12-09] MEDS: PANTOPRAZOLE 40 MG TABLET PO SCH (21:00)
[2017-12-09] MEDS: TIMOLOL 0.5% OPH SOLN 5 ML BOTTLE RIGHT EYE SCH (21:00)
[2017-12-09] MEDS: TEMAZEPAM 15 MG CAPSULE PO SCH (21:00)
[2017-12-09] MEDS: ALPRAZolam 0.25 MG TABLET PO SCH (21:00)
[2017-12-09] MEDS: ACETAMINOPHEN 325 MG TABLET PO PRN (21:00)
[2017-12-09] MEDS: TAMSULOSIN 0.4 MG CAPSULE PO SCH (21:00)
[2017-12-10] MEDS: MEROPENEM 1,000 MG in SODIUM CHLORIDE 0.9% 100 ML IV SCH ×3 (01:35→18:29)
[2017-12-10 04:58] LABS: Basophils % 0.2 % (0.0-0.8); Eosinophils % 0.4 % (0.00-10.9); Hematocrit 28.5 VOL% (42.0-52.0); Hemoglobin 9.3 GM/DL (14.0-18.0); Immature Granulocytes % 1.5 %; Immature Granulocytes Absolute 0.07 #; Lymphocytes # 0.7 10*3/uL (1.4-4.0); Lymphocytes % 15.4 % (21.2-54.2); Mean Corpuscular HGB Conc 32.6 GM/DL (32-36); Mean Corpuscular Hemoglobin 33 PG (27-34); Mean Corpuscular Volume 100.7 FL (87-102); Mean Platelet Volume 12.2 FL (9.6-12.0); Monocytes # 0.4 10*3/uL (0.11-0.8); Monocytes % 9.3 % (1.7-12.7); Neutrophils # 3.5 10*3/uL (1.4-7.4); Neutrophils % 73.2 % (38.7-73.9); Platelet Count 120 T/CUMM (130-400); Red Blood Count 2.83 MC/CUMM (3.8-5.5); Red Cell Distribution Width 18.6 % (9.3-17.3); White Blood Count 4.7 T/CUMM (4-12)
[2017-12-10 05:50] LABS: Band Neutrophils 9 % (0-10); Metamyelocytes 2 %
[2017-12-10 05:51] LABS: Lymphocytes 11 % (20-55); Platelet Estimate Decreased; Segmented Neutrophils 65 % (50-85); Total Cells Counted 100
[2017-12-10 05:52] LABS: Hypochromasia 2+
[2017-12-10] MEDS: CITALOPRAM 20 MG TABLET PO SCH (09:03)
[2017-12-10] MEDS: FUROSEMIDE 40 MG TABLET PO SCH (09:04)
[2017-12-10 10:23] LABS: Albumin 3.1 G/DL (3.4-5.0); Bilirubin,Total 1.6 MG/DL (0.2-1.0); Calcium 7.6 MG/DL (8.5-10.1); Osmolality,Calculated 293.1 MOS/KG (273-304); Potassium 4.4 MMOL/L (3.5-5.1); Total Protein 6.4 G/DL (6.4-8.3)
[2017-12-10] MEDS: AZITHROMYCIN INJ 500 MG in SODIUM CHLORIDE 0.9% 250 ML IV SCH (11:26)
[2017-12-10] MEDS: TEMAZEPAM 15 MG CAPSULE PO SCH (20:38)
[2017-12-10] MEDS: TAMSULOSIN 0.4 MG CAPSULE PO SCH (20:38)
[2017-12-10] MEDS: PANTOPRAZOLE 40 MG TABLET PO SCH (20:38)
[2017-12-10] MEDS: ALPRAZolam 0.25 MG TABLET PO SCH (20:38)
[2017-12-10] MEDS: TIMOLOL 0.5% OPH SOLN 5 ML BOTTLE RIGHT EYE SCH (20:39)
[2017-12-11] MEDS: MEROPENEM 1,000 MG in SODIUM CHLORIDE 0.9% 100 ML IV SCH ×3 (00:06→19:17)
[2017-12-11] MEDS: ACETAMINOPHEN 325 MG TABLET PO PRN (03:45)
[2017-12-11 06:04] LABS: Basophils % 0.7 % (0.0-0.8); Eosinophils # 0.2 10*3/uL (0.0-0.87); Eosinophils % 5.1 % (0.00-10.9); Hematocrit 28.5 VOL% (42.0-52.0); Hemoglobin 9.5 GM/DL (14.0-18.0); Immature Granulocytes % 0.3 %; Immature Granulocytes Absolute 0.01 #; Lymphocytes # 0.7 10*3/uL (1.4-4.0); Lymphocytes % 23.3 % (21.2-54.2); Mean Corpuscular HGB Conc 33.3 GM/DL (32-36); Mean Corpuscular Hemoglobin 33 PG (27-34); Mean Corpuscular Volume 99.7 FL (87-102); Mean Platelet Volume 11.2 FL (9.6-12.0); Monocytes # 0.3 10*3/uL (0.11-0.8); Monocytes % 8.4 % (1.7-12.7); Neutrophils # 1.8 10*3/uL (1.4-7.4); Neutrophils % 62.2 % (38.7-73.9); Platelet Count 100 T/CUMM (130-400); Red Blood Count 2.86 MC/CUMM (3.8-5.5); Red Cell Distribution Width 18.6 % (9.3-17.3)
[2017-12-11 06:08] LABS: Calcium 8.2 MG/DL (8.5-10.1); Osmolality,Calculated 288.4 MOS/KG (273-304)
[2017-12-11 06:35] LABS: Band Neutrophils 18 % (0-10); Eosinophils 5 % (0-10); Lymphocytes 19 % (20-55); Platelet Estimate Adequate; Segmented Neutrophils 53 % (50-85); Total Cells Counted 100
[2017-12-11 06:36] LABS: Anisocytosis 1+; Macrocytosis 1+
[2017-12-11 06:37] LABS: Poikilocytosis Slight
[2017-12-11] MEDS: CITALOPRAM 20 MG TABLET PO SCH (08:50)
[2017-12-11] MEDS: FUROSEMIDE 40 MG TABLET PO SCH (08:50)
[2017-12-11] MEDS: AZITHROMYCIN INJ 500 MG in SODIUM CHLORIDE 0.9% 250 ML IV SCH (09:28)
[2017-12-11] MEDS: PANTOPRAZOLE 40 MG TABLET PO SCH (20:45)
[2017-12-11] MEDS: TEMAZEPAM 15 MG CAPSULE PO SCH (20:45)
[2017-12-11] MEDS: TAMSULOSIN 0.4 MG CAPSULE PO SCH (20:45)
[2017-12-11] MEDS: ALPRAZolam 0.25 MG TABLET PO SCH (20:45)
[2017-12-11] MEDS: TIMOLOL 0.5% OPH SOLN 5 ML BOTTLE RIGHT EYE SCH (20:47)
[2017-12-12] MEDS: MEROPENEM 1,000 MG in SODIUM CHLORIDE 0.9% 100 ML IV SCH ×2 (02:33→13:29)
[2017-12-12] MEDS: CITALOPRAM 20 MG TABLET PO SCH (08:49)
[2017-12-12] MEDS: FUROSEMIDE 40 MG TABLET PO SCH (08:49)
[2017-12-12 09:24] LABS: Basophils % 0.5 % (0.0-0.8); Eosinophils # 0.1 10*3/uL (0.0-0.87); Hemoglobin 9.8 GM/DL (14.0-18.0); Immature Granulocytes % 0.5 %; Immature Granulocytes Absolute 0.01 #; Lymphocytes # 0.7 10*3/uL (1.4-4.0); Lymphocytes % 35.2 % (21.2-54.2); Mean Corpuscular HGB Conc 32.7 GM/DL (32-36); Mean Corpuscular Hemoglobin 33 PG (27-34); Mean Corpuscular Volume 101.7 FL (87-102); Mean Platelet Volume 12.3 FL (9.6-12.0); Monocytes # 0.2 10*3/uL (0.11-0.8); Monocytes % 8.5 % (1.7-12.7); Neutrophils % 48.3 % (38.7-73.9); Platelet Count 100 T/CUMM (130-400); Red Blood Count 2.95 MC/CUMM (3.8-5.5); Red Cell Distribution Width 18.1 % (9.3-17.3)
[2017-12-12 10:04] LABS: Calcium 8.2 MG/DL (8.5-10.1); Osmolality,Calculated 293.3 MOS/KG (273-304); Potassium 4.3 MMOL/L (3.5-5.1)
[2017-12-12] MEDS ORDERED: HEPARIN LOCK FLUSH 500 UNIT/5 ML SYRINGE IV ONE (12:41)
[2017-12-12] MEDS: AZITHROMYCIN INJ 500 MG in SODIUM CHLORIDE 0.9% 250 ML IV SCH (13:29)
[2017-12-12 13:38] LABS: Band Neutrophils 1 % (0-10); Eosinophils 8 % (0-10); Lymphocytes 31 % (20-55); Platelet Estimate Adequate; Segmented Neutrophils 49 % (50-85); Total Cells Counted 100
[2017-12-12 13:39] LABS: Hypochromasia Slight; Macrocytosis Slight
[2017-12-12 14:56] VITALS: BP 121/75
== END 2017-12-12 13:00 | disposition home health service (06) | DRG 193 ==
LOC: N.EDINP 15:42 → N.ED 15:42 → N.4E 20:29
PROVIDERS: ADMIT Internal Medicine; ATTEND Internal Medicine

== ENCOUNTER 2017-12-26 13:05 | Inpatient (IN) ==
[2017-12-26] MEDS ORDERED: ONDANSETRON 4 MG/2 ML VIAL IV STA (13:40)
[2017-12-26] MEDS ORDERED: METOCLOPRAMIDE 10 MG/2 ML VIAL IV STA (13:40)
[2017-12-26] MEDS ORDERED: LEVOFLOXACIN INJ 750 MG in PREMIX 1 EACH IV STA (14:29)
[2017-12-26 14:37] LABS: Basophils % 0.2 % (0.0-0.8); Hematocrit 26.2 VOL% (42.0-52.0); Hemoglobin 8.6 GM/DL (14.0-18.0); Immature Granulocytes % 1.3 %; Immature Granulocytes Absolute 0.06 #; Lymphocytes # 0.6 10*3/uL (1.4-4.0); Lymphocytes % 12.5 % (21.2-54.2); Mean Corpuscular HGB Conc 32.8 GM/DL (32-36); Mean Corpuscular Hemoglobin 34 PG (27-34); Mean Corpuscular Volume 103.6 FL (87-102); Mean Platelet Volume 11.5 FL (9.6-12.0); Monocytes # 0.5 10*3/uL (0.11-0.8); Monocytes % 11.6 % (1.7-12.7); Neutrophils # 3.3 10*3/uL (1.4-7.4); Neutrophils % 74.4 % (38.7-73.9); Platelet Count 98 T/CUMM (130-400); Red Blood Count 2.53 MC/CUMM (3.8-5.5); Red Cell Distribution Width 18.6 % (9.3-17.3); White Blood Count 4.5 T/CUMM (4-12)
[2017-12-26 14:40] LABS: INR 1.2; PT Patient Result 12.9 SECS
[2017-12-26 14:50] LABS: Alanine Aminotransferase 10 U/L (16-61); Albumin 3.2 G/DL (3.4-5.0); Alkaline Phosphatase 63 U/L (45-117); Amylase 34 U/L (25-115); Aspartate Amino Transferase 7 U/L (0-37); Blood Urea Nitrogen 48 MG/DL (7-18); Calcium 8.6 MG/DL (8.5-10.1); Glucose 104 MG/DL (74-106); Osmolality,Calculated 293.3 MOS/KG (273-304); Potassium 4.3 MMOL/L (3.5-5.1); Sodium 141 MMOL/L (136-145); Total Protein 6.6 G/DL (6.4-8.3)
[2017-12-26 14:52] LABS: Troponin I 0.046 NG/ML (0.00-0.045)
[2017-12-26 14:55] LABS: Apearance,Urine CLEAR (Clear); Bilirubin,Urine Negative (Negative); Blood, Urine Small mg/dL (Negative); Glucose,Urine (UA) Negative (Negative); Ketones,Urine Negative (Negative); Nitrite,Urine Negative (Negative); Protein,Urine Negative; RBC,Urine 1 /HPF (0-4); Squamous Epithelial Cell,Urine Occasional /HPF (0-10); Urine Color Yellow (Yellow); Urine Specific Gravity 1.047 (1.001-1.035); WBC,Urine 3 /HPF (0-6)
[2017-12-26] MEDS ORDERED: ACETAMINOPHEN 325 MG TABLET PO PRN (15:18)
[2017-12-26] MEDS ORDERED: ALBUTEROL 2.5 MG/3 ML NEB RESP TX PRN (15:23)
[2017-12-26] MEDS ORDERED: PROPYLENE GLYCOL BOTH EYES PRN (15:25)
[2017-12-26] MEDS ORDERED: PEG BOTH EYES PRN (15:25)
[2017-12-26] MEDS ORDERED: ALPRAZolam 0.25 MG TABLET PO PRN (15:25)
[2017-12-26] MEDS ORDERED: MEROPENEM 1,000 MG in SODIUM CHLORIDE 0.9% 100 ML IV SCH (15:30)
[2017-12-26 15:38] LABS: Band Neutrophils 9 % (0-10); Elliptocytes Few; Lymphocytes 11 % (20-55); Ovalocytes Few; Polychromasia Slight; Segmented Neutrophils 76 % (50-85); Total Cells Counted 100
[2017-12-26 15:39] LABS: Microcytosis 1+; Platelet Estimate Decreased
[2017-12-26 15:58] LABS: Thyroid Stimulating Hormone 0.584 uIU/ml (0.358-3.74)
[2017-12-26] MEDS: cefTRIAXone 1,000 MG in SYRINGE 1 EACH IV SCH (18:50)
[2017-12-26] MEDS: SODIUM CHLORIDE 0.9% 1,000 ML IV SCH (18:50)
[2017-12-26] MEDS: metroNIDAZOLE INJ 500 MG in PREMIX 1 EACH IV SCH (18:51)
[2017-12-26] MEDS: DORNASE ALFA 2.5 MG/2.5 ML VIAL RESP TX SCH (19:03)
[2017-12-26] MEDS: ALBUTEROL/IPRATROPIUM 3 ML NEB RESP TX SCH (19:03)
[2017-12-26] MEDS: PANTOPRAZOLE 40 MG TABLET PO SCH (20:41)
[2017-12-26] MEDS: TEMAZEPAM 15 MG CAPSULE PO SCH (20:41)
[2017-12-26] MEDS: TAMSULOSIN 0.4 MG CAPSULE PO SCH (20:41)
[2017-12-26] MEDS: TIMOLOL 0.5% OPH SOLN 5 ML BOTTLE RIGHT EYE SCH (22:09)
[2017-12-27] MEDS: ALBUTEROL/IPRATROPIUM 3 ML NEB RESP TX SCH ×4 (00:07→19:16)
[2017-12-27] MEDS: metroNIDAZOLE INJ 500 MG in PREMIX 1 EACH IV SCH ×4 (00:10→19:11)
[2017-12-27] MEDS: guaiFENesin/DM ER 600-30 MG TABLET PO PRN ×3 (00:11→20:55)
[2017-12-27 05:24] LABS: Basophils % 0.3 % (0.0-0.8); Eosinophils % 0.3 % (0.00-10.9); Hemoglobin 8.2 GM/DL (14.0-18.0); Immature Granulocytes % 1.5 %; Immature Granulocytes Absolute 0.05 #; Lymphocytes # 0.7 10*3/uL (1.4-4.0); Lymphocytes % 22.1 % (21.2-54.2); Mean Corpuscular HGB Conc 31.5 GM/DL (32-36); Mean Corpuscular Hemoglobin 33 PG (27-34); Mean Corpuscular Volume 104.8 FL (87-102); Mean Platelet Volume 11.9 FL (9.6-12.0); Monocytes # 0.3 10*3/uL (0.11-0.8); Monocytes % 10.4 % (1.7-12.7); Neutrophils # 2.1 10*3/uL (1.4-7.4); Neutrophils % 65.4 % (38.7-73.9); Platelet Count 90 T/CUMM (130-400); Red Blood Count 2.48 MC/CUMM (3.8-5.5); Red Cell Distribution Width 18.6 % (9.3-17.3); White Blood Count 3.3 T/CUMM (4-12)
[2017-12-27 05:45] LABS: Alanine Aminotransferase < 9 U/L (16-61); Albumin 3.1 G/DL (3.4-5.0); Alkaline Phosphatase 61 U/L (45-117); Aspartate Amino Transferase 9 U/L (0-37); Blood Urea Nitrogen 46 MG/DL (7-18); Calcium 8.4 MG/DL (8.5-10.1); Glucose 81 MG/DL (74-106); Potassium 4.1 MMOL/L (3.5-5.1); Sodium 143 MMOL/L (136-145); Total Protein 6.4 G/DL (6.4-8.3)
[2017-12-27] MEDS: cefTRIAXone 1,000 MG in SYRINGE 1 EACH IV SCH ×2 (06:07→19:11)
[2017-12-27 06:08] LABS: Anisocytosis 1+; Band Neutrophils 8 % (0-10); Lymphocytes 17 % (20-55); Macrocytosis Slight; Platelet Estimate Decreased; Segmented Neutrophils 69 % (50-85); Total Cells Counted 100
[2017-12-27] MEDS: DORNASE ALFA 2.5 MG/2.5 ML VIAL RESP TX SCH ×2 (07:23→19:17)
[2017-12-27] MEDS: FUROSEMIDE 20 MG TABLET PO SCH (08:54)
[2017-12-27] MEDS: CARVEDILOL 3.125 MG TABLET PO SCH (08:54)
[2017-12-27] MEDS: CITALOPRAM 20 MG TABLET PO SCH (08:54)
[2017-12-27] MEDS: DORZOLAMIDE 2% OPH SOLN 10 ML BOTTLE RIGHT EYE SCH (09:00)
[2017-12-27] MEDS ORDERED: PANTOPRAZOLE 40 MG TABLET PO SCH (09:00)
[2017-12-27] MEDS: SODIUM CHLORIDE 0.9% 1,000 ML IV SCH (11:00)
[2017-12-27] MEDS ORDERED: LEVOFLOXACIN INJ 750 MG in PREMIX 1 EACH IV SCH (15:00)
[2017-12-27] MEDS: PANTOPRAZOLE 40 MG TABLET PO SCH (20:55)
[2017-12-27] MEDS: TEMAZEPAM 15 MG CAPSULE PO SCH (20:55)
[2017-12-27] MEDS: TAMSULOSIN 0.4 MG CAPSULE PO SCH (20:55)
[2017-12-27] MEDS: TIMOLOL 0.5% OPH SOLN 5 ML BOTTLE RIGHT EYE SCH (21:00)
[2017-12-28] MEDS: metroNIDAZOLE INJ 500 MG in PREMIX 1 EACH IV SCH ×4 (00:05→20:06)
[2017-12-28] MEDS: ALBUTEROL/IPRATROPIUM 3 ML NEB RESP TX SCH ×4 (01:08→19:39)
[2017-12-28 03:22] LABS: Basophils % 0.3 % (0.0-0.8); Immature Granulocytes % 0.5 %; Immature Granulocytes Absolute 0.02 #; Lymphocytes # 0.6 10*3/uL (1.4-4.0); Lymphocytes % 17.3 % (21.2-54.2); Mean Corpuscular HGB Conc 33.3 GM/DL (32-36); Mean Corpuscular Hemoglobin 34 PG (27-34); Mean Corpuscular Volume 101.3 FL (87-102); Mean Platelet Volume 11.6 FL (9.6-12.0); Monocytes # 0.3 10*3/uL (0.11-0.8); Monocytes % 8.5 % (1.7-12.7); Neutrophils # 2.7 10*3/uL (1.4-7.4); Neutrophils % 73.4 % (38.7-73.9); Platelet Count 97 T/CUMM (130-400); Red Blood Count 2.37 MC/CUMM (3.8-5.5); Red Cell Distribution Width 18.9 % (9.3-17.3); White Blood Count 3.6 T/CUMM (4-12)
[2017-12-28 03:45] LABS: Lymphocytes 13 % (20-55); Osmolality,Calculated 299.7 MOS/KG (273-304); Potassium 4.2 MMOL/L (3.5-5.1); Segmented Neutrophils 80 % (50-85); Total Cells Counted 100
[2017-12-28 03:46] LABS: Anisocytosis Slight; Macrocytosis 2+; Platelet Estimate Decreased
[2017-12-28] MEDS: SODIUM CHLORIDE 0.9% 1,000 ML IV SCH ×2 (06:10→20:03)
[2017-12-28] MEDS: cefTRIAXone 1,000 MG in SYRINGE 1 EACH IV SCH ×2 (06:12→18:34)
[2017-12-28] MEDS: DORNASE ALFA 2.5 MG/2.5 ML VIAL RESP TX SCH ×2 (07:08→19:45)
[2017-12-28] MEDS: CITALOPRAM 20 MG TABLET PO SCH (09:39)
[2017-12-28] MEDS: CARVEDILOL 3.125 MG TABLET PO SCH (09:40)
[2017-12-28] MEDS: FUROSEMIDE 20 MG TABLET PO SCH (09:42)
[2017-12-28] MEDS ORDERED: TUBERCULIN SKIN TEST 0.1 ML SYRINGE INTRADERM ONE (11:00)
[2017-12-28] MEDS: DORZOLAMIDE 2% OPH SOLN 10 ML BOTTLE RIGHT EYE SCH (14:20)
[2017-12-28] MEDS ORDERED: ZINC OXIDE PASTE 113 GM TUBE TOP PRN (14:28)
[2017-12-28] MEDS: TAMSULOSIN 0.4 MG CAPSULE PO SCH (20:08)
[2017-12-28] MEDS: PANTOPRAZOLE 40 MG TABLET PO SCH (20:09)
[2017-12-28] MEDS: TIMOLOL 0.5% OPH SOLN 5 ML BOTTLE RIGHT EYE SCH (20:09)
[2017-12-28] MEDS: TEMAZEPAM 15 MG CAPSULE PO SCH (21:51)
[2017-12-29] MEDS: ALBUTEROL/IPRATROPIUM 3 ML NEB RESP TX SCH ×4 (00:32→19:21)
[2017-12-29] MEDS: metroNIDAZOLE INJ 500 MG in PREMIX 1 EACH IV SCH ×4 (02:21→21:18)
[2017-12-29] MEDS: cefTRIAXone 1,000 MG in SYRINGE 1 EACH IV SCH ×2 (05:59→19:32)
[2017-12-29] MEDS: CARVEDILOL 3.125 MG TABLET PO SCH (09:15)
[2017-12-29] MEDS: FUROSEMIDE 20 MG TABLET PO SCH (09:15)
[2017-12-29] MEDS: CITALOPRAM 20 MG TABLET PO SCH (09:15)
[2017-12-29] MEDS: DORZOLAMIDE 2% OPH SOLN 10 ML BOTTLE RIGHT EYE SCH (10:17)
[2017-12-29] MEDS: DORNASE ALFA 2.5 MG/2.5 ML VIAL RESP TX SCH ×2 (12:57→19:24)
[2017-12-29] MEDS: SODIUM CHLORIDE 0.9% 1,000 ML IV SCH (19:31)
[2017-12-29] MEDS: TIMOLOL 0.5% OPH SOLN 5 ML BOTTLE RIGHT EYE SCH (21:19)
[2017-12-29] MEDS: TAMSULOSIN 0.4 MG CAPSULE PO SCH (21:20)
[2017-12-29] MEDS: PANTOPRAZOLE 40 MG TABLET PO SCH (21:20)
[2017-12-29] MEDS: TEMAZEPAM 15 MG CAPSULE PO SCH ×2 (21:21→22:16)
[2017-12-30] MEDS: ALBUTEROL/IPRATROPIUM 3 ML NEB RESP TX SCH ×2 (01:19→07:50)
[2017-12-30] MEDS: metroNIDAZOLE INJ 500 MG in PREMIX 1 EACH IV SCH ×4 (03:09→21:35)
[2017-12-30 04:55] LABS: INR 1.3; PT Patient Result 13.5 SECS
[2017-12-30 05:30] LABS: Calcium 7.8 MG/DL (8.5-10.1); Osmolality,Calculated 291.7 MOS/KG (273-304); Potassium 4.1 MMOL/L (3.5-5.1)
[2017-12-30] MEDS: cefTRIAXone 1,000 MG in SYRINGE 1 EACH IV SCH ×2 (06:06→18:03)
[2017-12-30 06:25] LABS: Basophils % 0.5 % (0.0-0.8); Eosinophils % 1.5 % (0.00-10.9); Hematocrit 26.4 VOL% (42.0-52.0); Hemoglobin 8.6 GM/DL (14.0-18.0); Immature Granulocytes % 1.5 %; Immature Granulocytes Absolute 0.03 #; Lymphocytes # 0.6 10*3/uL (1.4-4.0); Lymphocytes % 30.3 % (21.2-54.2); Mean Corpuscular HGB Conc 32.6 GM/DL (32-36); Mean Corpuscular Hemoglobin 33 PG (27-34); Mean Corpuscular Volume 101.1 FL (87-102); Mean Platelet Volume 12.1 FL (9.6-12.0); Monocytes # 0.3 10*3/uL (0.11-0.8); Monocytes % 13.4 % (1.7-12.7); Neutrophils # 1.1 10*3/uL (1.4-7.4); Neutrophils % 52.8 % (38.7-73.9); Platelet Count 111 T/CUMM (130-400); Red Blood Count 2.61 MC/CUMM (3.8-5.5)
[2017-12-30 06:52] LABS: Eosinophils 5 % (0-10); Hypochromasia 1+; Lymphocytes 25 % (20-55); Ovalocytes Slight; Platelet Estimate Decreased; Segmented Neutrophils 59 % (50-85); Total Cells Counted 100
[2017-12-30 06:53] LABS: Macrocytosis Slight
[2017-12-30] MEDS: DORNASE ALFA 2.5 MG/2.5 ML VIAL RESP TX SCH (07:50)
[2017-12-30 08:40] LABS: Calcium 7.8 MG/DL (8.5-10.1); Osmolality,Calculated 289.8 MOS/KG (273-304); Potassium 3.6 MMOL/L (3.5-5.1)
[2017-12-30] MEDS: CITALOPRAM 20 MG TABLET PO SCH (09:55)
[2017-12-30] MEDS: CARVEDILOL 3.125 MG TABLET PO SCH (09:56)
[2017-12-30] MEDS: FUROSEMIDE 20 MG TABLET PO SCH (09:56)
[2017-12-30] MEDS ORDERED: ETOMIDATE 20 MG/10 ML VIAL IV ONE (12:00)
[2017-12-30] MEDS ORDERED: PROPOFOL 200 MG/20 ML VIAL IV ONE (12:00)
[2017-12-30] MEDS ORDERED: LIDOCAINE 2% 5 ML VIAL ONE (12:00)
[2017-12-30] MEDS: SODIUM CHLORIDE 0.9% 1,000 ML IV SCH (12:59)
[2017-12-30] MEDS: DORZOLAMIDE 2% OPH SOLN 10 ML BOTTLE RIGHT EYE SCH (13:01)
[2017-12-30] MEDS ORDERED: ALBUTEROL/IPRATROPIUM 3 ML NEB RESP TX PRN (14:00)
[2017-12-30] MEDS ORDERED: CARVEDILOL 3.125 MG TABLET PEG ONE (21:00)
[2017-12-30] MEDS: TEMAZEPAM 15 MG CAPSULE PO SCH (21:43)
[2017-12-30] MEDS: PANTOPRAZOLE 40 MG TABLET PO SCH (21:43)
[2017-12-30] MEDS: TAMSULOSIN 0.4 MG CAPSULE PO SCH (21:43)
[2017-12-30] MEDS: TIMOLOL 0.5% OPH SOLN 5 ML BOTTLE RIGHT EYE SCH (21:46)
[2017-12-31] MEDS: metroNIDAZOLE INJ 500 MG in PREMIX 1 EACH IV SCH ×2 (03:34→08:45)
[2017-12-31 05:30] LABS: Basophils % 0.5 % (0.0-0.8); Eosinophils % 0.5 % (0.00-10.9); Hematocrit 26.6 VOL% (42.0-52.0); Hemoglobin 8.3 GM/DL (14.0-18.0); Immature Granulocytes % 0.5 %; Immature Granulocytes Absolute 0.01 #; Lymphocytes # 0.6 10*3/uL (1.4-4.0); Lymphocytes % 29.4 % (21.2-54.2); Mean Corpuscular HGB Conc 31.2 GM/DL (32-36); Mean Corpuscular Hemoglobin 33 PG (27-34); Mean Corpuscular Volume 104.7 FL (87-102); Mean Platelet Volume 11.8 FL (9.6-12.0); Monocytes # 0.3 10*3/uL (0.11-0.8); Monocytes % 14.4 % (1.7-12.7); Neutrophils # 1.1 10*3/uL (1.4-7.4); Neutrophils % 54.7 % (38.7-73.9); Platelet Count 109 T/CUMM (130-400); Red Blood Count 2.54 MC/CUMM (3.8-5.5)
[2017-12-31] MEDS: cefTRIAXone 1,000 MG in SYRINGE 1 EACH IV SCH (05:50)
[2017-12-31 05:57] LABS: Anisocytosis 1+; Hypochromasia Slight; Macrocytosis 1+; Poikilocytosis 1+
[2017-12-31 05:58] LABS: Acanthocytes Few; Ovalocytes Few
[2017-12-31 05:59] LABS: Platelet Estimate Adequate; Target Cells Slight
[2017-12-31 06:05] LABS: Calcium 7.6 MG/DL (8.5-10.1); Osmolality,Calculated 289.7 MOS/KG (273-304); Potassium 3.6 MMOL/L (3.5-5.1)
[2017-12-31 06:08] LABS: Calcium 7.5 MG/DL (8.5-10.1); Osmolality,Calculated 292.4 MOS/KG (273-304); Potassium 3.6 MMOL/L (3.5-5.1); Prealbumin 9.5 MG/DL (20-40)
[2017-12-31] MEDS ORDERED: INFLUENZA VIRUS VACCINE 0.5 ML SYRINGE IM ONE (07:27)
[2017-12-31] MEDS: FUROSEMIDE 20 MG TABLET PO SCH (08:44)
[2017-12-31] MEDS: CITALOPRAM 20 MG TABLET PO SCH (08:44)
[2017-12-31] MEDS: CARVEDILOL 3.125 MG TABLET PO SCH (08:45)
[2017-12-31 10:54] VITALS: BP 100/51
[2017-12-31] MEDS ORDERED: HEPARIN LOCK FLUSH 500 UNIT/5 ML SYRINGE IV ONE ×2 (12:17→12:19)
[2017-12-31] MEDS: SODIUM CHLORIDE 0.9% 1,000 ML IV SCH (12:42)
[2017-12-31] MEDS: DORZOLAMIDE 2% OPH SOLN 10 ML BOTTLE RIGHT EYE SCH (12:42)
== END 2017-12-31 14:19 | disposition swing bed (61) | DRG 178 ==
LOC: EDBD → EDUNIT# → N.ED 13:05 → SUATTDRO 15:18 → N.EDINP 15:18 → N.3E 17:01 → N.4E 18:36
PROVIDERS: ADMIT Phlebology; ATTEND Internal Medicine Geriatric Medicine
PROC: EGDWPEG (ICD-10-PCS; 2017-12-30 07:35)

== ENCOUNTER 2018-01-07 09:41 | Inpatient (IN) ==
[2018-01-07] MEDS: ALBUTEROL/IPRATROPIUM 3 ML NEB RESP TX SCH ×2 (12:40→19:14)
[2018-01-07 12:42] LABS: ABG HCO3 25.4 MMOL/L (20-26); ABG Oxygen Saturation 99.7 % (95-100); ABG PCO2 35.9 MM HG (35-48); ABG PH 7.447 (7.35-7.45); ABG TCO2 22.6 MMOL/L (23-27)
[2018-01-07] MEDS: PHENYLEPHRINE DRIP 40 MG/250 ML PREMIX IV PRN ×2 (12:49→20:16)
[2018-01-07] MEDS: PROPOFOL 1,000 MG/100 ML BOTTLE IV SCH ×2 (12:50→22:31)
[2018-01-07 13:03] LABS: Basophils % 0.2 % (0.0-0.8); Hematocrit 28.5 VOL% (42.0-52.0); Hemoglobin 9.1 GM/DL (14.0-18.0); Immature Granulocytes % 1.2 %; Immature Granulocytes Absolute 0.05 #; Lymphocytes # 0.6 10*3/uL (1.4-4.0); Lymphocytes % 13.3 % (21.2-54.2); Mean Corpuscular HGB Conc 31.9 GM/DL (32-36); Mean Corpuscular Hemoglobin 33 PG (27-34); Mean Corpuscular Volume 104.4 FL (87-102); Mean Platelet Volume 12.2 FL (9.6-12.0); Monocytes # 0.5 10*3/uL (0.11-0.8); Neutrophils % 72.3 % (38.7-73.9); Platelet Count 117 T/CUMM (130-400); Red Blood Count 2.73 MC/CUMM (3.8-5.5); Red Cell Distribution Width 19.8 % (9.3-17.3); White Blood Count 4.1 T/CUMM (4-12)
[2018-01-07] MEDS: LEVOFLOXACIN INJ 500 MG in PREMIX 1 EACH IV SCH (13:06)
[2018-01-07] MEDS: MEROPENEM 1,000 MG in SODIUM CHLORIDE 0.9% 100 ML IV SCH (13:07)
[2018-01-07 13:18] LABS: Calcium 7.6 MG/DL (8.5-10.1); Osmolality,Calculated 283.4 MOS/KG (273-304); Potassium 4.9 MMOL/L (3.5-5.1)
[2018-01-07] MEDS ORDERED: SODIUM CHLORIDE 0.9% 1,000 ML IV ONE (14:14)
[2018-01-07] MEDS ORDERED: ONDANSETRON 4 MG/2 ML VIAL IV PRN (14:25)
[2018-01-07] MEDS: SODIUM CHLORIDE 0.9% 1,000 ML IV SCH (15:30)
[2018-01-07] MEDS: LANSOPRAZOLE ODT 30 MG TABLET PEG SCH ×2 (15:54→21:14)
[2018-01-07 15:55] LABS: Anisocytosis 1+; Band Neutrophils 1 % (0-10); Elliptocytes Few; Lymphocytes 20 % (20-55); Macrocytosis Slight; Polychromasia Few; Segmented Neutrophils 71 % (50-85); Total Cells Counted 100
[2018-01-07 15:56] LABS: Hypochromasia Slight; Microcytosis 1+; Ovalocytes 1+; Platelet Estimate Decreased
[2018-01-07] MEDS: FUROSEMIDE 40 MG/4 ML VIAL IV SCH (16:28)
[2018-01-07] MEDS: ENOXAPARIN 30 MG/0.3 ML SYRINGE SUBCUT SCH (16:28)
[2018-01-07 19:47] LABS: Uric Acid 6.7 MG/DL (3.5-7.2)
[2018-01-07 19:48] LABS: Troponin I 0.063 NG/ML (0.00-0.045)
[2018-01-08] MEDS: MEROPENEM 1,000 MG in SODIUM CHLORIDE 0.9% 100 ML IV SCH ×2 (00:31→12:59)
[2018-01-08] MEDS: ALBUTEROL/IPRATROPIUM 3 ML NEB RESP TX SCH ×4 (01:55→19:44)
[2018-01-08 03:28] LABS: ABG Base Excess -0.2 MMOL/L (-2.5-2.5); ABG HCO3 23.3 MMOL/L (20-26); ABG Oxygen Saturation 98.9 % (95-100); ABG PCO2 33.4 MM HG (35-48); ABG PH 7.461 (7.35-7.45); ABG PO2 215.8 MM HG (80-95); ABG TCO2 24.3 MMOL/L (23-27); Allen Test Positive; Pt O2 Delivery Device Ventilator
[2018-01-08] MEDS: PHENYLEPHRINE DRIP 40 MG/250 ML PREMIX IV PRN ×3 (03:42→17:53)
[2018-01-08] MEDS: SODIUM CHLORIDE 0.9% 1,000 ML IV SCH ×3 (04:44→17:40)
[2018-01-08 05:30] LABS: Basophils % 0.3 % (0.0-0.8); Eosinophils % 0.2 % (0.00-10.9); Hematocrit 26.2 VOL% (42.0-52.0); Hemoglobin 8.3 GM/DL (14.0-18.0); Immature Granulocytes % 0.7 %; Immature Granulocytes Absolute 0.04 #; Lymphocytes % 34.5 % (21.2-54.2); Mean Corpuscular HGB Conc 31.7 GM/DL (32-36); Mean Corpuscular Hemoglobin 33 PG (27-34); Mean Corpuscular Volume 104.8 FL (87-102); Mean Platelet Volume 11.7 FL (9.6-12.0); Monocytes # 0.8 10*3/uL (0.11-0.8); Monocytes % 13.4 % (1.7-12.7); Neutrophils % 50.9 % (38.7-73.9); Platelet Count 129 T/CUMM (130-400); Red Cell Distribution Width 20.1 % (9.3-17.3); White Blood Count 5.8 T/CUMM (4-12)
[2018-01-08 06:01] LABS: Calcium 7.7 MG/DL (8.5-10.1); Osmolality,Calculated 285.1 MOS/KG (273-304); Potassium 4.6 MMOL/L (3.5-5.1)
[2018-01-08 06:05] LABS: Troponin I 0.067 NG/ML (0.00-0.045)
[2018-01-08 06:16] LABS: Band Neutrophils 4 % (0-10); Elliptocytes Few; Lymphocytes 35 % (20-55); Macrocytosis 2+; Platelet Estimate Decreased; Segmented Neutrophils 56 % (50-85); Total Cells Counted 100
[2018-01-08] MEDS: FUROSEMIDE 40 MG/4 ML VIAL IV SCH ×2 (07:38→16:09)
[2018-01-08] MEDS: LANSOPRAZOLE ODT 30 MG TABLET PEG SCH ×2 (08:21→21:00)
[2018-01-08 12:48] LABS: Troponin I 0.067 NG/ML (0.00-0.045)
[2018-01-08 13:18] LABS: Apearance,Urine CLEAR (Clear); Bacteria,Urine Occasional /HPF (Few); Bilirubin,Urine Negative (Negative); Blood, Urine Negative (Negative); Glucose,Urine (UA) Negative (Negative); Ketones,Urine Negative (Negative); Mucus,Urine Occasional /LPF (Occasional); Nitrite,Urine Negative (Negative); Protein,Urine Negative; Urine Color Straw (Yellow); Urine Specific Gravity 1.004 (1.001-1.035); Urine Urobilinogen < 2.0 EU/DL (0.2-1.0); WBC,Urine 1 /HPF (0-6)
[2018-01-08] MEDS: ENOXAPARIN 30 MG/0.3 ML SYRINGE SUBCUT SCH (16:09)
[2018-01-08 18:44] LABS: Troponin I 0.073 NG/ML (0.00-0.045)
[2018-01-09] MEDS: PROPOFOL 1,000 MG/100 ML BOTTLE IV SCH ×2 (01:45)
[2018-01-09] MEDS: SODIUM CHLORIDE 0.9% 1,000 ML IV SCH ×3 (01:57→17:27)
[2018-01-09] MEDS: ALBUTEROL/IPRATROPIUM 3 ML NEB RESP TX SCH ×4 (01:57→19:26)
[2018-01-09] MEDS: PHENYLEPHRINE DRIP 40 MG/250 ML PREMIX IV PRN ×3 (02:24→17:48)
[2018-01-09] MEDS: MEROPENEM 1,000 MG in SODIUM CHLORIDE 0.9% 100 ML IV SCH ×2 (03:09→13:37)
[2018-01-09 04:17] LABS: ABG Base Excess -0.2 MMOL/L (-2.5-2.5); ABG HCO3 24.3 MMOL/L (20-26); ABG Oxygen Saturation 99.7 % (95-100); ABG PCO2 34.1 MM HG (35-48); ABG PH 7.444 (7.35-7.45); ABG TCO2 21.4 MMOL/L (23-27); Allen Test Positive; Pt O2 Delivery Device Ventilator
[2018-01-09 04:32] LABS: Basophils % 0.2 % (0.0-0.8); Hematocrit 27.3 VOL% (42.0-52.0); Hemoglobin 8.6 GM/DL (14.0-18.0); Immature Granulocytes % 0.6 %; Immature Granulocytes Absolute 0.04 #; Lymphocytes # 1.7 10*3/uL (1.4-4.0); Lymphocytes % 26.8 % (21.2-54.2); Mean Corpuscular HGB Conc 31.5 GM/DL (32-36); Mean Corpuscular Hemoglobin 33 PG (27-34); Mean Corpuscular Volume 104.6 FL (87-102); Mean Platelet Volume 12.1 FL (9.6-12.0); Monocytes # 1.1 10*3/uL (0.11-0.8); Monocytes % 17.5 % (1.7-12.7); Neutrophils # 3.4 10*3/uL (1.4-7.4); Neutrophils % 54.9 % (38.7-73.9); Platelet Count 124 T/CUMM (130-400); Red Blood Count 2.61 MC/CUMM (3.8-5.5); Red Cell Distribution Width 20.6 % (9.3-17.3); White Blood Count 6.3 T/CUMM (4-12)
[2018-01-09 04:50] LABS: Calcium 7.7 MG/DL (8.5-10.1); Potassium 3.8 MMOL/L (3.5-5.1)
[2018-01-09 04:55] LABS: Prealbumin 13.7 MG/DL (20-40)
[2018-01-09 05:41] LABS: Band Neutrophils 5 % (0-10); Lymphocytes 25 % (20-55); Segmented Neutrophils 62 % (50-85); Total Cells Counted 100
[2018-01-09 05:42] LABS: Anisocytosis 1+; Hypochromasia 1+; Ovalocytes 1+; Platelet Estimate Adequate
[2018-01-09] MEDS: FUROSEMIDE 40 MG/4 ML VIAL IV SCH ×2 (08:53→15:37)
[2018-01-09] MEDS: LANSOPRAZOLE ODT 30 MG TABLET PEG SCH ×2 (08:56→20:13)
[2018-01-09] MEDS ORDERED: CARVEDILOL 3.125 MG TABLET PO SCH (09:00)
[2018-01-09] MEDS: METOPROLOL TARTRATE 25 MG TABLET PO SCH ×3 (10:53→20:14)
[2018-01-09] MEDS: LEVOFLOXACIN INJ 500 MG in PREMIX 1 EACH IV SCH (12:21)
[2018-01-09] MEDS: TIMOLOL 0.5% OPH SOLN 5 ML BOTTLE RIGHT EYE SCH ×2 (14:36→20:20)
[2018-01-09] MEDS: ENOXAPARIN 30 MG/0.3 ML SYRINGE SUBCUT SCH (15:37)
[2018-01-09] MEDS: MORPHINE 4 MG/1 ML VIAL IV PRN (20:12)
[2018-01-10] MEDS: ALBUTEROL/IPRATROPIUM 3 ML NEB RESP TX SCH ×4 (01:10→19:19)
[2018-01-10] MEDS: PROPOFOL 1,000 MG/100 ML BOTTLE IV SCH ×3 (01:47→20:30)
[2018-01-10] MEDS: MEROPENEM 1,000 MG in SODIUM CHLORIDE 0.9% 100 ML IV SCH ×2 (01:47→12:16)
[2018-01-10 03:51] LABS: Basophils % 0.3 % (0.0-0.8); Eosinophils % 0.6 % (0.00-10.9); Hematocrit 27.5 VOL% (42.0-52.0); Hemoglobin 8.7 GM/DL (14.0-18.0); Immature Granulocytes % 0.6 %; Immature Granulocytes Absolute 0.02 #; Lymphocytes # 0.8 10*3/uL (1.4-4.0); Mean Corpuscular HGB Conc 31.6 GM/DL (32-36); Mean Corpuscular Hemoglobin 33 PG (27-34); Mean Platelet Volume 12.4 FL (9.6-12.0); Monocytes # 0.6 10*3/uL (0.11-0.8); Monocytes % 17.9 % (1.7-12.7); Neutrophils # 1.9 10*3/uL (1.4-7.4); Neutrophils % 55.6 % (38.7-73.9); Platelet Count 113 T/CUMM (130-400); Red Blood Count 2.67 MC/CUMM (3.8-5.5); Red Cell Distribution Width 20.4 % (9.3-17.3); White Blood Count 3.4 T/CUMM (4-12)
[2018-01-10 04:10] LABS: Calcium 7.4 MG/DL (8.5-10.1); Osmolality,Calculated 294.8 MOS/KG (273-304)
[2018-01-10] MEDS ORDERED: MAGNESIUM SULF RIDER 4 GM in PREMIX 1 EACH IV PRN (04:36)
[2018-01-10] MEDS ORDERED: POTASSIUM CHLORIDE RIDER 10 MEQ in PREMIX 1 EACH IV PRN (04:36)
[2018-01-10] MEDS ORDERED: POTASSIUM CHLORIDE RIDER 20 MEQ in PREMIX 1 EACH IV PRN (04:36)
[2018-01-10 04:59] LABS: ABG Base Excess 4.9 MMOL/L (-2.5-2.5); ABG HCO3 28.9 MMOL/L (20-26); ABG Oxygen Saturation 99.9 % (95-100); ABG PCO2 35.1 MM HG (35-48); ABG PH 7.509 (7.35-7.45); ABG TCO2 24.8 MMOL/L (23-27)
[2018-01-10] MEDS ORDERED: POTASSIUM CHLORIDE INJ 50 MEQ in SODIUM CHLORIDE 0.9% 475 ML IV SCH (05:00)
[2018-01-10] MEDS: PHENYLEPHRINE DRIP 40 MG/250 ML PREMIX IV PRN ×2 (05:20→18:51)
[2018-01-10] MEDS: MAGNESIUM SULF RIDER 2 GM in PREMIX 1 EACH IV PRN (05:21)
[2018-01-10 07:52] LABS: Anisocytosis Slight; Band Neutrophils 4 % (0-10); Lymphocytes 29 % (20-55); Macrocytosis 2+; Platelet Estimate Normal; Segmented Neutrophils 63 % (50-85); Total Cells Counted 100
[2018-01-10] MEDS: FUROSEMIDE 40 MG/4 ML VIAL IV SCH ×2 (08:17→16:33)
[2018-01-10] MEDS: METOPROLOL TARTRATE 25 MG TABLET PO SCH (08:17)
[2018-01-10] MEDS: POTASSIUM CHLORIDE 20 MEQ/15 ML UDCUP PEG SCH ×4 (08:17→20:58)
[2018-01-10] MEDS: LANSOPRAZOLE ODT 30 MG TABLET PEG SCH ×2 (08:17→20:58)
[2018-01-10] MEDS: TIMOLOL 0.5% OPH SOLN 5 ML BOTTLE RIGHT EYE SCH (08:18)
[2018-01-10] MEDS: SPIRONOLACTONE 25 MG TABLET PO SCH (09:55)
[2018-01-10] MEDS: MORPHINE 4 MG/1 ML VIAL IV PRN ×3 (10:41→20:58)
[2018-01-10] MEDS: ENOXAPARIN 30 MG/0.3 ML SYRINGE SUBCUT SCH (16:33)
[2018-01-11] MEDS: ALBUTEROL/IPRATROPIUM 3 ML NEB RESP TX SCH ×4 (00:34→19:16)
[2018-01-11] MEDS: MAGNESIUM SULF RIDER 2 GM in PREMIX 1 EACH IV PRN (01:20)
[2018-01-11] MEDS: TIMOLOL 0.5% OPH SOLN 5 ML BOTTLE RIGHT EYE SCH ×3 (01:20→21:24)
[2018-01-11] MEDS: MEROPENEM 1,000 MG in SODIUM CHLORIDE 0.9% 100 ML IV SCH ×3 (01:20→21:24)
[2018-01-11 04:16] LABS: Basophils % 0.4 % (0.0-0.8); Eosinophils % 0.8 % (0.00-10.9); Hematocrit 26.9 VOL% (42.0-52.0); Hemoglobin 8.5 GM/DL (14.0-18.0); Immature Granulocytes % 1.2 %; Immature Granulocytes Absolute 0.03 #; Mean Corpuscular HGB Conc 31.6 GM/DL (32-36); Mean Corpuscular Hemoglobin 33 PG (27-34); Mean Corpuscular Volume 104.3 FL (87-102); Mean Platelet Volume 12.3 FL (9.6-12.0); Monocytes # 0.5 10*3/uL (0.11-0.8); Monocytes % 17.3 % (1.7-12.7); Neutrophils # 1.1 10*3/uL (1.4-7.4); Neutrophils % 40.3 % (38.7-73.9); Platelet Count 103 T/CUMM (130-400); Red Blood Count 2.58 MC/CUMM (3.8-5.5); Red Cell Distribution Width 20.1 % (9.3-17.3); White Blood Count 2.6 T/CUMM (4-12)
[2018-01-11 04:31] LABS: ABG Base Excess 6.7 MMOL/L (-2.5-2.5); ABG HCO3 29.3 MMOL/L (20-26); ABG Oxygen Saturation 98.7 % (95-100); ABG PCO2 33.9 MM HG (35-48); ABG PH 7.554 (7.35-7.45); ABG PO2 171.4 MM HG (80-95); ABG TCO2 30.3 MMOL/L (23-27); Pt O2 Delivery Device Ventilator
[2018-01-11 04:43] LABS: Calcium 7.6 MG/DL (8.5-10.1); Osmolality,Calculated 299.4 MOS/KG (273-304); Potassium 3.7 MMOL/L (3.5-5.1)
[2018-01-11 05:04] LABS: Band Neutrophils 1 % (0-10); Eosinophils 1 % (0-10); Lymphocytes 36 % (20-55); Platelet Estimate Decreased; Segmented Neutrophils 48 % (50-85); Total Cells Counted 100
[2018-01-11 05:05] LABS: Hypochromasia 1+; Macrocytosis Slight; Ovalocytes Slight
[2018-01-11] MEDS: SPIRONOLACTONE 25 MG TABLET PO SCH (08:51)
[2018-01-11] MEDS: FUROSEMIDE 40 MG/4 ML VIAL IV SCH ×2 (08:52→17:07)
[2018-01-11] MEDS: LANSOPRAZOLE ODT 30 MG TABLET PEG SCH ×2 (08:52→21:24)
[2018-01-11 09:24] LABS: ABG Base Excess 6.2 MMOL/L (-2.5-2.5); ABG HCO3 30.1 MMOL/L (20-26); ABG Oxygen Saturation 99.9 % (95-100); ABG PCO2 36.4 MM HG (35-48); ABG PH 7.515 (7.35-7.45); ABG TCO2 26.7 MMOL/L (23-27)
[2018-01-11 12:11] LABS: ABG Base Excess 7.6 MMOL/L (-2.5-2.5); ABG HCO3 32.7 MMOL/L (20-26); ABG Oxygen Saturation 98.5 % (95-100); ABG PCO2 49.2 MM HG (35-48); ABG PH 7.441 (7.35-7.45); ABG PO2 153.9 MM HG (80-95); ABG TCO2 34.3 MMOL/L (23-27)
[2018-01-11] MEDS: LEVOFLOXACIN INJ 500 MG in PREMIX 1 EACH IV SCH (12:50)
[2018-01-11] MEDS: HYDROCORTISONE 100 MG VIAL IV SCH ×2 (12:50→19:28)
[2018-01-11] MEDS: PHENYLEPHRINE DRIP 40 MG/250 ML PREMIX IV PRN (13:24)
[2018-01-11] MEDS: PROPOFOL 1,000 MG/100 ML BOTTLE IV SCH (13:33)
[2018-01-11] MEDS: ENOXAPARIN 30 MG/0.3 ML SYRINGE SUBCUT SCH (17:06)
[2018-01-12] MEDS: MORPHINE 4 MG/1 ML VIAL IV PRN (00:25)
[2018-01-12] MEDS: ALBUTEROL/IPRATROPIUM 3 ML NEB RESP TX SCH ×4 (00:44→19:30)
[2018-01-12 03:23] LABS: ABG Base Excess 7.4 MMOL/L (-2.5-2.5); ABG HCO3 31.2 MMOL/L (20-26); ABG Oxygen Saturation 99.7 % (95-100); ABG PCO2 47.4 MM HG (35-48); ABG PH 7.445 (7.35-7.45); ABG TCO2 29.1 MMOL/L (23-27)
[2018-01-12] MEDS: HYDROCORTISONE 100 MG VIAL IV SCH ×3 (04:28→19:03)
[2018-01-12] MEDS: MEROPENEM 1,000 MG in SODIUM CHLORIDE 0.9% 100 ML IV SCH ×3 (04:28→21:52)
[2018-01-12 05:01] LABS: Hematocrit 27.4 VOL% (42.0-52.0); Hemoglobin 8.6 GM/DL (14.0-18.0); Immature Granulocytes Absolute 0.02 #; Lymphocytes # 0.9 10*3/uL (1.4-4.0); Lymphocytes % 41.1 % (21.2-54.2); Mean Corpuscular HGB Conc 31.4 GM/DL (32-36); Mean Corpuscular Hemoglobin 33 PG (27-34); Mean Corpuscular Volume 104.2 FL (87-102); Mean Platelet Volume 12.3 FL (9.6-12.0); Monocytes # 0.1 10*3/uL (0.11-0.8); Monocytes % 3.9 % (1.7-12.7); Neutrophils # 1.1 10*3/uL (1.4-7.4); Platelet Count 103 T/CUMM (130-400); Red Blood Count 2.63 MC/CUMM (3.8-5.5); Red Cell Distribution Width 19.9 % (9.3-17.3); White Blood Count 2.1 T/CUMM (4-12)
[2018-01-12 05:26] LABS: Calcium 7.6 MG/DL (8.5-10.1); Osmolality,Calculated 300.6 MOS/KG (273-304); Potassium 3.8 MMOL/L (3.5-5.1)
[2018-01-12 05:27] LABS: Macrocytosis 1+; Ovalocytes Slight; Platelet Estimate Decreased
[2018-01-12] MEDS ORDERED: POTASSIUM CHLORIDE 20 MEQ TABLET PO ONE (07:57)
[2018-01-12] MEDS ORDERED: ALPRAZolam 0.25 MG TABLET PO PRN (08:30)
[2018-01-12] MEDS: SPIRONOLACTONE 25 MG TABLET PO SCH (09:00)
[2018-01-12] MEDS: LANSOPRAZOLE ODT 30 MG TABLET PEG SCH ×2 (09:01→22:06)
[2018-01-12] MEDS: FUROSEMIDE 40 MG/4 ML VIAL IV SCH ×2 (09:01→17:41)
[2018-01-12] MEDS: TIMOLOL 0.5% OPH SOLN 5 ML BOTTLE RIGHT EYE SCH ×2 (09:18→22:06)
[2018-01-12] MEDS: LEVOFLOXACIN INJ 500 MG in PREMIX 1 EACH IV SCH (11:32)
[2018-01-12] MEDS: ENOXAPARIN 30 MG/0.3 ML SYRINGE SUBCUT SCH (15:11)
[2018-01-12] MEDS ORDERED: TEMAZEPAM 15 MG CAPSULE PO PRN (21:52)
[2018-01-13] MEDS: ALBUTEROL/IPRATROPIUM 3 ML NEB RESP TX SCH ×2 (01:44→07:07)
[2018-01-13] MEDS: HYDROCORTISONE 100 MG VIAL IV SCH ×2 (03:45→11:01)
[2018-01-13] MEDS: MEROPENEM 1,000 MG in SODIUM CHLORIDE 0.9% 100 ML IV SCH (03:45)
[2018-01-13 05:35] LABS: Hemoglobin 8.3 GM/DL (14.0-18.0); Immature Granulocytes % 0.5 %; Immature Granulocytes Absolute 0.01 #; Lymphocytes # 0.5 10*3/uL (1.4-4.0); Mean Corpuscular HGB Conc 31.9 GM/DL (32-36); Mean Corpuscular Hemoglobin 33 PG (27-34); Mean Corpuscular Volume 103.2 FL (87-102); Mean Platelet Volume 11.9 FL (9.6-12.0); Monocytes # 0.1 10*3/uL (0.11-0.8); Monocytes % 7.6 % (1.7-12.7); Neutrophils # 1.2 10*3/uL (1.4-7.4); Neutrophils % 66.9 % (38.7-73.9); Platelet Count 80 T/CUMM (130-400); Red Blood Count 2.52 MC/CUMM (3.8-5.5); Red Cell Distribution Width 19.4 % (9.3-17.3); White Blood Count 1.8 T/CUMM (4-12)
[2018-01-13 05:52] LABS: Calcium 7.8 MG/DL (8.5-10.1); Osmolality,Calculated 300.8 MOS/KG (273-304); Potassium 3.9 MMOL/L (3.5-5.1)
[2018-01-13 06:04] LABS: Band Neutrophils 1 % (0-10); Hypochromasia 1+; Lymphocytes 23 % (20-55); Macrocytosis Slight; Ovalocytes Slight; Platelet Estimate Decreased; Segmented Neutrophils 69 % (50-85); Total Cells Counted 100
[2018-01-13] MEDS: SPIRONOLACTONE 25 MG TABLET PO SCH (09:27)
[2018-01-13] MEDS: TIMOLOL 0.5% OPH SOLN 5 ML BOTTLE RIGHT EYE SCH (09:27)
[2018-01-13] MEDS: LANSOPRAZOLE ODT 30 MG TABLET PEG SCH (09:27)
[2018-01-13] MEDS: FUROSEMIDE 40 MG/4 ML VIAL IV SCH (09:27)
[2018-01-13] MEDS ORDERED: FONDAPARINUX 2.5 MG/0.5 ML SYRINGE SUBCUT SCH (10:30)
[2018-01-13] MEDS: LEVOFLOXACIN INJ 500 MG in PREMIX 1 EACH IV SCH (11:01)
[2018-01-13 11:03] VITALS: BP 103/54
[2018-01-14] MEDS ORDERED: LANSOPRAZOLE ODT 30 MG TABLET PEG SCH (09:00)
== END 2018-01-13 12:45 | DRG 207 ==
LOC: SUATTDRO 11:51 → N.ICU 11:51
PROVIDERS: ADMIT Internal Medicine; ATTEND Family Medicine

== ENCOUNTER 2018-02-13 16:34 | Inpatient (IN) ==
[2018-02-13 17:38] LABS: Hematocrit 28.6 VOL% (42.0-52.0); Hemoglobin 9.2 GM/DL (14.0-18.0); Immature Granulocytes % 1.1 %; Immature Granulocytes Absolute 0.02 #; Lymphocytes # 0.4 10*3/uL (1.4-4.0); Lymphocytes % 20.9 % (21.2-54.2); Mean Corpuscular HGB Conc 32.2 GM/DL (32-36); Mean Corpuscular Hemoglobin 31 PG (27-34); Mean Corpuscular Volume 96.9 FL (87-102); Mean Platelet Volume 11.2 FL (9.6-12.0); Monocytes # 0.1 10*3/uL (0.11-0.8); Neutrophils # 1.3 10*3/uL (1.4-7.4); Platelet Count 79 T/CUMM (130-400); Red Blood Count 2.95 MC/CUMM (3.8-5.5); Red Cell Distribution Width 18.6 % (9.3-17.3); White Blood Count 1.8 T/CUMM (4-12)
[2018-02-13 17:44] LABS: Apearance,Urine CLEAR (Clear); Bacteria,Urine Occasional /HPF (Few); Bilirubin,Urine Negative (Negative); Blood, Urine Negative (Negative); Glucose,Urine (UA) Negative (Negative); Ketones,Urine Negative (Negative); Nitrite,Urine Negative (Negative); Protein,Urine 30 MG/DL; RBC,Urine 1 /HPF (0-4); Urine Color Yellow (Yellow); Urine Specific Gravity 1.011 (1.001-1.035); WBC,Urine <1 /HPF (0-6)
[2018-02-13] MEDS ORDERED: SODIUM CHLORIDE 0.9% 500 ML IV STA (17:54)
[2018-02-13 18:00] LABS: Alanine Aminotransferase 18 U/L (16-61); Albumin 2.8 G/DL (3.4-5.0); Alkaline Phosphatase 111 U/L (45-117); Aspartate Amino Transferase 21 U/L (0-37); Blood Urea Nitrogen 47 MG/DL (7-18); Calcium 8.4 MG/DL (8.5-10.1); Glucose 133 MG/DL (74-106); Osmolality,Calculated 283.1 MOS/KG (273-304); Potassium 4.8 MMOL/L (3.5-5.1); Sodium 135 MMOL/L (136-145); Total Protein 7.2 G/DL (6.4-8.3)
[2018-02-13 18:06] LABS: Lactic Acid 2.5 MMOL/L (0.4-2.0)
[2018-02-13 18:18] LABS: Band Neutrophils 3 % (0-10); Eosinophils 1 % (0-10); Lymphocytes 19 % (20-55); Macrocytosis Slight; Microcytosis Slight; Nucleated Red Blood Cells 2 (0-5); Ovalocytes Few; Platelet Estimate Decreased; Segmented Neutrophils 74 % (50-85); Total Cells Counted 100
[2018-02-13 18:40] LABS: Sedimentation Rate-Westergren 111 MM/HR (0-20)
[2018-02-13] MEDS ORDERED: ONDANSETRON 4 MG/2 ML VIAL IV PRN (18:49)
[2018-02-13] MEDS ORDERED: TEMAZEPAM 15 MG CAPSULE PO PRN (18:51)
[2018-02-13] MEDS ORDERED: ALPRAZolam 0.25 MG TABLET PO PRN (18:51)
[2018-02-13] MEDS: SODIUM CHLORIDE 0.9% 1,000 ML IV SCH (20:20)
[2018-02-13] MEDS: LEVOFLOXACIN INJ 750 MG in PREMIX 1 EACH IV SCH (20:33)
[2018-02-13] MEDS: DOCUSATE SODIUM 100 MG CAPSULE PO SCH (20:34)
[2018-02-13] MEDS: TAMSULOSIN 0.4 MG CAPSULE PO SCH (20:34)
[2018-02-13] MEDS: MEROPENEM 1,000 MG in SODIUM CHLORIDE 0.9% 100 ML IV SCH (21:04)
[2018-02-13 22:21] LABS: Apearance,Urine CLEAR (Clear); Bilirubin,Urine Negative (Negative); Blood, Urine Negative (Negative); Glucose,Urine (UA) Negative (Negative); Ketones,Urine Negative (Negative); Nitrite,Urine Negative (Negative); Protein,Urine 30 MG/DL; RBC,Urine <1 /HPF (0-4); Urine Color Yellow (Yellow); Urine Specific Gravity 1.011 (1.001-1.035); WBC,Urine 1 /HPF (0-6)
[2018-02-13] MEDS: TIMOLOL 0.5% OPH SOLN 5 ML BOTTLE RIGHT EYE SCH (22:50)
[2018-02-13] MEDS: VANCOMYCIN INJ 1,000 MG in SODIUM CHLORIDE 0.9% 250 ML IV SCH (22:51)
[2018-02-14] MEDS: SODIUM CHLORIDE 0.9% 1,000 ML IV SCH ×3 (04:13→20:11)
[2018-02-14 04:40] LABS: Basophils % 0.5 % (0.0-0.8); Hematocrit 24.1 VOL% (42.0-52.0); Hemoglobin 7.9 GM/DL (14.0-18.0); Immature Granulocytes % 1.5 %; Immature Granulocytes Absolute 0.03 #; Lymphocytes # 0.7 10*3/uL (1.4-4.0); Lymphocytes % 32.5 % (21.2-54.2); Mean Corpuscular HGB Conc 32.8 GM/DL (32-36); Mean Corpuscular Hemoglobin 32 PG (27-34); Mean Corpuscular Volume 96.8 FL (87-102); Mean Platelet Volume 11.4 FL (9.6-12.0); Monocytes # 0.4 10*3/uL (0.11-0.8); Monocytes % 18.2 % (1.7-12.7); Neutrophils % 47.3 % (38.7-73.9); Red Blood Count 2.49 MC/CUMM (3.8-5.5); Red Cell Distribution Width 18.5 % (9.3-17.3)
[2018-02-14 04:41] LABS: Platelet Count 60 T/CUMM (130-400)
[2018-02-14 05:13] LABS: Band Neutrophils 4 % (0-10); Lymphocytes 28 % (20-55); Segmented Neutrophils 58 % (50-85); Total Cells Counted 100
[2018-02-14 05:14] LABS: Atypical Lymphocytes Few; Hypochromasia 1+; Ovalocytes 1+; Platelet Estimate Decreased; Reactive Lymphocytes 1+
[2018-02-14 05:15] LABS: Elliptocytes Few; Polychromasia Few
[2018-02-14 05:16] LABS: Albumin 2.3 G/DL (3.4-5.0); Bilirubin,Total 2.4 MG/DL (0.2-1.0); Calcium 7.8 MG/DL (8.5-10.1); Osmolality,Calculated 283.7 MOS/KG (273-304); Potassium 4.4 MMOL/L (3.5-5.1); Total Protein 6.1 G/DL (6.4-8.3)
[2018-02-14] MEDS: MEROPENEM 1,000 MG in SODIUM CHLORIDE 0.9% 100 ML IV SCH ×2 (09:00→20:11)
[2018-02-14] MEDS ORDERED: ENOXAPARIN 30 MG/0.3 ML SYRINGE SUBCUT SCH (09:00)
[2018-02-14] MEDS ORDERED: PANTOPRAZOLE 40 MG TABLET PO SCH (09:00)
[2018-02-14] MEDS: DOCUSATE SODIUM 100 MG CAPSULE PO SCH ×2 (09:04→20:12)
[2018-02-14] MEDS: FAMOTIDINE 20 MG TABLET PO SCH (09:05)
[2018-02-14] MEDS: LANSOPRAZOLE ODT 30 MG TABLET PER TUBE SCH (09:05)
[2018-02-14] MEDS: TIMOLOL 0.5% OPH SOLN 5 ML BOTTLE RIGHT EYE SCH ×2 (09:18→20:21)
[2018-02-14] MEDS: DORZOLAMIDE 2% OPH SOLN 10 ML BOTTLE RIGHT EYE SCH (09:19)
[2018-02-14] MEDS: VANCOMYCIN INJ 1,000 MG in SODIUM CHLORIDE 0.9% 250 ML IV SCH ×2 (09:41→22:34)
[2018-02-14] MEDS ORDERED: SODIUM CHLORIDE 0.9% 1,000 ML IV PRN (09:52)
[2018-02-14] MEDS: TAMSULOSIN 0.4 MG CAPSULE PO SCH (20:12)
[2018-02-14] MEDS: LEVOFLOXACIN INJ 750 MG in PREMIX 1 EACH IV SCH (20:49)
[2018-02-15 04:20] LABS: Hematocrit 23.1 VOL% (42.0-52.0); Hemoglobin 7.1 GM/DL (14.0-18.0); Immature Granulocytes % 1.3 %; Immature Granulocytes Absolute 0.02 #; Lymphocytes # 0.7 10*3/uL (1.4-4.0); Lymphocytes % 47.4 % (21.2-54.2); Mean Corpuscular HGB Conc 30.7 GM/DL (32-36); Mean Corpuscular Hemoglobin 31 PG (27-34); Mean Corpuscular Volume 99.1 FL (87-102); Mean Platelet Volume 12.7 FL (9.6-12.0); Monocytes # 0.2 10*3/uL (0.11-0.8); Monocytes % 14.3 % (1.7-12.7); Neutrophils # 0.6 10*3/uL (1.4-7.4); Red Blood Count 2.33 MC/CUMM (3.8-5.5); Red Cell Distribution Width 18.7 % (9.3-17.3); White Blood Count 1.5 T/CUMM (4-12)
[2018-02-15 04:33] LABS: Calcium 8.1 MG/DL (8.5-10.1); Osmolality,Calculated 288.3 MOS/KG (273-304)
[2018-02-15 04:39] LABS: Platelet Count 47 T/CUMM (130-400)
[2018-02-15 05:14] LABS: Band Neutrophils 14 % (0-10); Elliptocytes 1+; Lymphocytes 38 % (20-55); Myelocytes 5 %; Ovalocytes 2+; Platelet Estimate Decreased; Segmented Neutrophils 24 % (50-85); Total Cells Counted 100
[2018-02-15 05:15] LABS: Hypochromasia Slight
[2018-02-15] MEDS: MEROPENEM 1,000 MG in SODIUM CHLORIDE 0.9% 100 ML IV SCH ×2 (09:44→20:23)
[2018-02-15] MEDS: LANSOPRAZOLE ODT 30 MG TABLET PER TUBE SCH (09:44)
[2018-02-15] MEDS: DOCUSATE SODIUM 100 MG CAPSULE PO SCH ×2 (09:44→20:24)
[2018-02-15] MEDS: FAMOTIDINE 20 MG TABLET PO SCH (09:44)
[2018-02-15] MEDS: TIMOLOL 0.5% OPH SOLN 5 ML BOTTLE RIGHT EYE SCH ×2 (10:02→20:24)
[2018-02-15] MEDS: DORZOLAMIDE 2% OPH SOLN 10 ML BOTTLE RIGHT EYE SCH (10:03)
[2018-02-15] MEDS: FILGRASTIM-SNDZ 300 MCG/0.5 ML SYRINGE SUBCUT SCH (10:03)
[2018-02-15] MEDS ORDERED: SKIN HEALING OINT (AQUAPHOR) 50 GM TUBE TOP PRN (10:37)
[2018-02-15] MEDS: SODIUM CHLORIDE 0.9% 1,000 ML IV SCH ×2 (10:49→20:23)
[2018-02-15] MEDS: VANCOMYCIN INJ 1,000 MG in SODIUM CHLORIDE 0.9% 250 ML IV SCH ×2 (10:50→22:53)
[2018-02-15] MEDS: ZINC OXIDE PASTE 113 GM TUBE TOP SCH ×2 (14:25→20:24)
[2018-02-15] MEDS: TAMSULOSIN 0.4 MG CAPSULE PO SCH (20:24)
[2018-02-15] MEDS: LEVOFLOXACIN INJ 750 MG in PREMIX 1 EACH IV SCH (21:17)
[2018-02-16] MEDS ORDERED: METOPROLOL TARTRATE 5 MG/5 ML VIAL IV ONE ×2 (00:55→05:00)
[2018-02-16 05:06] LABS: Calcium 6.9 MG/DL (8.5-10.1); Osmolality,Calculated 291.7 MOS/KG (273-304); Potassium 3.6 MMOL/L (3.5-5.1); Prealbumin 4.3 MG/DL (20-40)
[2018-02-16] MEDS: SODIUM CHLORIDE 0.9% 1,000 ML IV SCH ×2 (07:31→22:01)
[2018-02-16] MEDS ORDERED: MAGNESIUM SULF RIDER 2 GM in PREMIX 1 EACH IV PRN ×2 (09:22→10:49)
[2018-02-16] MEDS ORDERED: MAGNESIUM SULF RIDER 4 GM in PREMIX 1 EACH IV PRN ×2 (09:22→10:49)
[2018-02-16] MEDS: MEROPENEM 1,000 MG in SODIUM CHLORIDE 0.9% 100 ML IV SCH (10:09)
[2018-02-16] MEDS: FAMOTIDINE 20 MG TABLET PO SCH (10:10)
[2018-02-16] MEDS: LANSOPRAZOLE ODT 30 MG TABLET PER TUBE SCH (10:10)
[2018-02-16] MEDS: DOCUSATE SODIUM 100 MG CAPSULE PO SCH ×2 (10:11→21:51)
[2018-02-16] MEDS: TIMOLOL 0.5% OPH SOLN 5 ML BOTTLE RIGHT EYE SCH ×2 (10:11→21:50)
[2018-02-16] MEDS: DORZOLAMIDE 2% OPH SOLN 10 ML BOTTLE RIGHT EYE SCH (10:12)
[2018-02-16] MEDS: FILGRASTIM-SNDZ 300 MCG/0.5 ML SYRINGE SUBCUT SCH (10:16)
[2018-02-16] MEDS: ZINC OXIDE PASTE 113 GM TUBE TOP SCH ×2 (10:33→21:50)
[2018-02-16 10:37] LABS: Basophils % 0.7 % (0.0-0.8); Hematocrit 22.6 VOL% (42.0-52.0); Hemoglobin 7.1 GM/DL (14.0-18.0); Immature Granulocytes % 2.7 %; Immature Granulocytes Absolute 0.15 #; Lymphocytes % 16.8 % (21.2-54.2); Mean Corpuscular HGB Conc 31.4 GM/DL (32-36); Mean Corpuscular Hemoglobin 32 PG (27-34); Mean Corpuscular Volume 100.4 FL (87-102); Mean Platelet Volume 13.2 FL (9.6-12.0); Monocytes # 0.3 10*3/uL (0.11-0.8); Neutrophils # 4.2 10*3/uL (1.4-7.4); Neutrophils % 73.8 % (38.7-73.9); Red Blood Count 2.25 MC/CUMM (3.8-5.5); Red Cell Distribution Width 18.7 % (9.3-17.3); White Blood Count 5.7 T/CUMM (4-12)
[2018-02-16 10:38] LABS: Platelet Count 44 T/CUMM (130-400)
[2018-02-16] MEDS ORDERED: POTASSIUM CHLORIDE 20 MEQ/15 ML UDCUP PO ONE (10:49)
[2018-02-16] MEDS ORDERED: DIGOXIN 0.5 MG/2 ML AMP IV ONE (10:50)
[2018-02-16] MEDS: VANCOMYCIN INJ 1,000 MG in SODIUM CHLORIDE 0.9% 250 ML IV SCH (11:08)
[2018-02-16] MEDS: AMIODARONE 200 MG TABLET PO SCH ×2 (11:15→21:50)
[2018-02-16 11:19] LABS: Band Neutrophils 49 % (0-10); Lymphocytes 7 % (20-55); Platelet Estimate Decreased; Segmented Neutrophils 40 % (50-85); Total Cells Counted 100
[2018-02-16 11:20] LABS: Anisocytosis 1+; Poikilocytosis Slight
[2018-02-16] MEDS: cefTRIAXone 1,000 MG in SYRINGE 1 EACH IV SCH (11:26)
[2018-02-16] MEDS: TAMSULOSIN 0.4 MG CAPSULE PO SCH (21:50)
[2018-02-17 06:07] LABS: Calcium 7.8 MG/DL (8.5-10.1); Osmolality,Calculated 290.1 MOS/KG (273-304); Potassium 4.4 MMOL/L (3.5-5.1)
[2018-02-17] MEDS: FAMOTIDINE 20 MG TABLET PO SCH (08:44)
[2018-02-17] MEDS: AMIODARONE 200 MG TABLET PO SCH ×2 (08:44→20:29)
[2018-02-17] MEDS: LANSOPRAZOLE ODT 30 MG TABLET PER TUBE SCH (08:44)
[2018-02-17] MEDS: TIMOLOL 0.5% OPH SOLN 5 ML BOTTLE RIGHT EYE SCH ×2 (08:44→20:28)
[2018-02-17] MEDS: FILGRASTIM-SNDZ 300 MCG/0.5 ML SYRINGE SUBCUT SCH (08:44)
[2018-02-17] MEDS: DORZOLAMIDE 2% OPH SOLN 10 ML BOTTLE RIGHT EYE SCH (08:45)
[2018-02-17] MEDS: DOCUSATE SODIUM 100 MG CAPSULE PO SCH ×2 (08:45→20:24)
[2018-02-17] MEDS: ZINC OXIDE PASTE 113 GM TUBE TOP SCH ×2 (08:48→20:29)
[2018-02-17] MEDS: cefTRIAXone 1,000 MG in SYRINGE 1 EACH IV SCH (11:58)
[2018-02-17] MEDS: TAMSULOSIN 0.4 MG CAPSULE PO SCH (20:29)
[2018-02-18 04:22] LABS: Calcium 7.5 MG/DL (8.5-10.1); Osmolality,Calculated 290.1 MOS/KG (273-304); Potassium 4.4 MMOL/L (3.5-5.1)
[2018-02-18] MEDS: SODIUM CHLORIDE 0.9% 1,000 ML IV SCH (05:55)
[2018-02-18] MEDS ORDERED: TUBERCULIN SKIN TEST 0.1 ML SYRINGE INTRADERM ONE (08:36)
[2018-02-18] MEDS: LANSOPRAZOLE ODT 30 MG TABLET PER TUBE SCH (09:20)
[2018-02-18] MEDS: FILGRASTIM-SNDZ 300 MCG/0.5 ML SYRINGE SUBCUT SCH (09:20)
[2018-02-18] MEDS: FAMOTIDINE 20 MG TABLET PO SCH (09:20)
[2018-02-18] MEDS: AMIODARONE 200 MG TABLET PO SCH ×2 (09:20→21:19)
[2018-02-18] MEDS: ZINC OXIDE PASTE 113 GM TUBE TOP SCH ×2 (09:21→21:27)
[2018-02-18] MEDS: TIMOLOL 0.5% OPH SOLN 5 ML BOTTLE RIGHT EYE SCH ×2 (09:21→21:26)
[2018-02-18] MEDS: DOCUSATE SODIUM 100 MG CAPSULE PO SCH ×2 (09:21→22:25)
[2018-02-18] MEDS: DORZOLAMIDE 2% OPH SOLN 10 ML BOTTLE RIGHT EYE SCH (09:21)
[2018-02-18] MEDS: cefTRIAXone 1,000 MG in SYRINGE 1 EACH IV SCH (11:30)
[2018-02-18] MEDS: TAMSULOSIN 0.4 MG CAPSULE PO SCH (21:19)
[2018-02-19] MEDS: FILGRASTIM-SNDZ 300 MCG/0.5 ML SYRINGE SUBCUT SCH (09:02)
[2018-02-19] MEDS: AMIODARONE 200 MG TABLET PO SCH (09:03)
[2018-02-19] MEDS: DOCUSATE SODIUM 100 MG CAPSULE PO SCH ×2 (09:03→20:47)
[2018-02-19] MEDS: FAMOTIDINE 20 MG TABLET PO SCH (09:04)
[2018-02-19] MEDS: ZINC OXIDE PASTE 113 GM TUBE TOP SCH ×2 (09:04→20:52)
[2018-02-19] MEDS: LANSOPRAZOLE ODT 30 MG TABLET PER TUBE SCH (09:04)
[2018-02-19] MEDS: DORZOLAMIDE 2% OPH SOLN 10 ML BOTTLE RIGHT EYE SCH (09:07)
[2018-02-19] MEDS: TIMOLOL 0.5% OPH SOLN 5 ML BOTTLE RIGHT EYE SCH ×2 (09:08→22:10)
[2018-02-19] MEDS: cefTRIAXone 1,000 MG in SYRINGE 1 EACH IV SCH (11:57)
[2018-02-19] MEDS: SODIUM CHLORIDE 0.9% 1,000 ML IV SCH ×3 (12:00→12:07)
[2018-02-19] MEDS: TAMSULOSIN 0.4 MG CAPSULE PO SCH (20:52)
[2018-02-20 05:41] LABS: Basophils # 0.1 10*3/uL (0.0-0.2); Basophils % 0.8 % (0.0-0.8); Hematocrit 24.6 VOL% (42.0-52.0); Hemoglobin 7.7 GM/DL (14.0-18.0); Immature Granulocytes % 1.2 %; Immature Granulocytes Absolute 0.08 #; Lymphocytes # 1.5 10*3/uL (1.4-4.0); Lymphocytes % 22.6 % (21.2-54.2); Mean Corpuscular HGB Conc 31.3 GM/DL (32-36); Mean Corpuscular Hemoglobin 31 PG (27-34); Mean Corpuscular Volume 99.2 FL (87-102); Mean Platelet Volume 12.1 FL (9.6-12.0); Monocytes # 0.5 10*3/uL (0.11-0.8); Monocytes % 8.3 % (1.7-12.7); Neutrophils # 4.3 10*3/uL (1.4-7.4); Neutrophils % 67.1 % (38.7-73.9); Platelet Count 65 T/CUMM (130-400); Red Blood Count 2.48 MC/CUMM (3.8-5.5); Red Cell Distribution Width 18.1 % (9.3-17.3); White Blood Count 6.4 T/CUMM (4-12)
[2018-02-20 07:04] LABS: Anisocytosis 2+; Band Neutrophils 40 % (0-10); Eosinophils 1 % (0-10); Lymphocytes 13 % (20-55); Ovalocytes Few; Platelet Estimate Decreased; Segmented Neutrophils 42 % (50-85); Total Cells Counted 100
[2018-02-20 07:05] LABS: Hypochromasia Slight; Poikilocytosis Slight
[2018-02-20] MEDS: AMIODARONE 200 MG TABLET PO SCH (09:00)
[2018-02-20] MEDS: TIMOLOL 0.5% OPH SOLN 5 ML BOTTLE RIGHT EYE SCH ×2 (09:00→22:37)
[2018-02-20] MEDS: LANSOPRAZOLE ODT 30 MG TABLET PER TUBE SCH (09:00)
[2018-02-20] MEDS: FAMOTIDINE 20 MG TABLET PO SCH (09:00)
[2018-02-20] MEDS: DOCUSATE SODIUM 100 MG CAPSULE PO SCH ×2 (09:00→22:20)
[2018-02-20] MEDS: FILGRASTIM-SNDZ 300 MCG/0.5 ML SYRINGE SUBCUT SCH (09:00)
[2018-02-20] MEDS: ZINC OXIDE PASTE 113 GM TUBE TOP SCH ×2 (09:01→21:15)
[2018-02-20] MEDS: DORZOLAMIDE 2% OPH SOLN 10 ML BOTTLE RIGHT EYE SCH (09:02)
[2018-02-20] MEDS: cefTRIAXone 1,000 MG in SYRINGE 1 EACH IV SCH (10:37)
[2018-02-20] MEDS: TAMSULOSIN 0.4 MG CAPSULE PO SCH (21:15)
[2018-02-20] MEDS: SODIUM CHLORIDE 0.9% 1,000 ML IV SCH (22:20)
[2018-02-21] MEDS: AMIODARONE 200 MG TABLET PO SCH (09:09)
[2018-02-21] MEDS: FILGRASTIM-SNDZ 300 MCG/0.5 ML SYRINGE SUBCUT SCH (09:09)
[2018-02-21] MEDS: FAMOTIDINE 20 MG TABLET PO SCH (09:09)
[2018-02-21] MEDS: DOCUSATE SODIUM 100 MG CAPSULE PO SCH ×2 (09:09→21:10)
[2018-02-21] MEDS: ZINC OXIDE PASTE 113 GM TUBE TOP SCH ×2 (09:10→21:09)
[2018-02-21] MEDS: DORZOLAMIDE 2% OPH SOLN 10 ML BOTTLE RIGHT EYE SCH (09:15)
[2018-02-21] MEDS: TIMOLOL 0.5% OPH SOLN 5 ML BOTTLE RIGHT EYE SCH ×3 (09:15→21:09)
[2018-02-21] MEDS: LANSOPRAZOLE ODT 30 MG TABLET PER TUBE SCH (09:15)
[2018-02-21] MEDS: SODIUM CHLORIDE 0.9% 1,000 ML IV SCH (10:18)
[2018-02-21] MEDS: cefTRIAXone 1,000 MG in SYRINGE 1 EACH IV SCH (10:52)
[2018-02-21] MEDS ORDERED: chlorproMAZINE INJ 50 MG in SODIUM CHLORIDE 0.9% 100 ML IV PRN (19:10)
[2018-02-21] MEDS ORDERED: traMADol 50 MG TABLET PO PRN (19:10)
[2018-02-21] MEDS: TAMSULOSIN 0.4 MG CAPSULE PO SCH (21:08)
[2018-02-22 00:45] LABS: Calcium 7.9 MG/DL (8.5-10.1); Osmolality,Calculated 283.4 MOS/KG (273-304); Potassium 4.8 MMOL/L (3.5-5.1)
[2018-02-22] MEDS: DOCUSATE SODIUM 100 MG CAPSULE PO SCH ×2 (08:36→20:21)
[2018-02-22] MEDS: FAMOTIDINE 20 MG TABLET PO SCH (08:36)
[2018-02-22] MEDS: LANSOPRAZOLE ODT 30 MG TABLET PER TUBE SCH (08:36)
[2018-02-22] MEDS: AMIODARONE 200 MG TABLET PO SCH (08:36)
[2018-02-22] MEDS: ZINC OXIDE PASTE 113 GM TUBE TOP SCH ×2 (08:37→20:19)
[2018-02-22] MEDS: SODIUM CHLORIDE 0.9% 1,000 ML IV SCH (08:37)
[2018-02-22] MEDS: TIMOLOL 0.5% OPH SOLN 5 ML BOTTLE RIGHT EYE SCH ×2 (08:37→20:25)
[2018-02-22] MEDS: FILGRASTIM-SNDZ 300 MCG/0.5 ML SYRINGE SUBCUT SCH (08:53)
[2018-02-22] MEDS: cefTRIAXone 1,000 MG in SYRINGE 1 EACH IV SCH (13:02)
[2018-02-22] MEDS: ALPRAZolam 0.25 MG TABLET PO PRN (20:20)
[2018-02-22] MEDS: TAMSULOSIN 0.4 MG CAPSULE PO SCH (20:20)
[2018-02-23] MEDS: FAMOTIDINE 20 MG TABLET PO SCH (09:07)
[2018-02-23] MEDS: TIMOLOL 0.5% OPH SOLN 5 ML BOTTLE RIGHT EYE SCH ×2 (09:08→20:32)
[2018-02-23] MEDS: LANSOPRAZOLE ODT 30 MG TABLET PER TUBE SCH (09:08)
[2018-02-23] MEDS: AMIODARONE 200 MG TABLET PO SCH (09:08)
[2018-02-23] MEDS: FILGRASTIM-SNDZ 300 MCG/0.5 ML SYRINGE SUBCUT SCH (09:08)
[2018-02-23] MEDS: ZINC OXIDE PASTE 113 GM TUBE TOP SCH ×2 (09:08→20:32)
[2018-02-23] MEDS: DOCUSATE SODIUM 100 MG CAPSULE PO SCH ×2 (09:09→20:31)
[2018-02-23] MEDS: AMOXICILLIN/CLAV 875 MG TABLET PO SCH (12:52)
[2018-02-23] MEDS: cefTRIAXone 1,000 MG in SYRINGE 1 EACH IV SCH (12:58)
[2018-02-23] MEDS: SODIUM CHLORIDE 0.9% 1,000 ML IV SCH (18:42)
[2018-02-23] MEDS: TAMSULOSIN 0.4 MG CAPSULE PO SCH (20:31)
[2018-02-23] MEDS: ALPRAZolam 0.25 MG TABLET PO PRN (20:31)
[2018-02-24] MEDS: AMOXICILLIN/CLAV 875 MG TABLET PO SCH ×3 (00:15→23:38)
[2018-02-24] MEDS: FILGRASTIM-SNDZ 300 MCG/0.5 ML SYRINGE SUBCUT SCH (09:49)
[2018-02-24] MEDS: LANSOPRAZOLE ODT 30 MG TABLET PER TUBE SCH (09:49)
[2018-02-24] MEDS: ZINC OXIDE PASTE 113 GM TUBE TOP SCH ×2 (09:49→23:44)
[2018-02-24] MEDS: TIMOLOL 0.5% OPH SOLN 5 ML BOTTLE RIGHT EYE SCH ×2 (09:49→21:34)
[2018-02-24] MEDS: FAMOTIDINE 20 MG TABLET PO SCH (09:49)
[2018-02-24] MEDS: AMIODARONE 200 MG TABLET PO SCH (09:49)
[2018-02-24] MEDS: DOCUSATE SODIUM 100 MG CAPSULE PO SCH ×2 (09:50→21:36)
[2018-02-24] MEDS: TAMSULOSIN 0.4 MG CAPSULE PO SCH (21:40)
[2018-02-25] MEDS: SODIUM CHLORIDE 0.9% 1,000 ML IV SCH ×2 (04:38→07:30)
[2018-02-25] MEDS: LANSOPRAZOLE ODT 30 MG TABLET PER TUBE SCH (09:15)
[2018-02-25] MEDS: FAMOTIDINE 20 MG TABLET PO SCH (09:15)
[2018-02-25] MEDS: AMIODARONE 200 MG TABLET PO SCH (09:16)
[2018-02-25] MEDS: TIMOLOL 0.5% OPH SOLN 5 ML BOTTLE RIGHT EYE SCH ×2 (09:16→22:43)
[2018-02-25] MEDS: ZINC OXIDE PASTE 113 GM TUBE TOP SCH ×2 (09:16→22:36)
[2018-02-25] MEDS: DOCUSATE SODIUM 100 MG CAPSULE PO SCH ×2 (09:16→22:45)
[2018-02-25] MEDS: FILGRASTIM-SNDZ 300 MCG/0.5 ML SYRINGE SUBCUT SCH (09:46)
[2018-02-25] MEDS: AMOXICILLIN/CLAV 875 MG TABLET PO SCH (14:34)
[2018-02-25] MEDS: TAMSULOSIN 0.4 MG CAPSULE PO SCH (22:36)
[2018-02-26] MEDS: AMOXICILLIN/CLAV 875 MG TABLET PO SCH ×2 (00:19→14:40)
[2018-02-26] MEDS: FAMOTIDINE 20 MG TABLET PO SCH (08:59)
[2018-02-26] MEDS: FILGRASTIM-SNDZ 300 MCG/0.5 ML SYRINGE SUBCUT SCH (08:59)
[2018-02-26] MEDS: AMIODARONE 200 MG TABLET PO SCH (09:00)
[2018-02-26] MEDS: LANSOPRAZOLE ODT 30 MG TABLET PER TUBE SCH (09:00)
[2018-02-26] MEDS: DOCUSATE SODIUM 100 MG CAPSULE PO SCH ×2 (09:00→22:12)
[2018-02-26] MEDS: ZINC OXIDE PASTE 113 GM TUBE TOP SCH ×2 (09:01→22:15)
[2018-02-26] MEDS: TIMOLOL 0.5% OPH SOLN 5 ML BOTTLE RIGHT EYE SCH ×2 (09:01→22:15)
[2018-02-26] MEDS: ALPRAZolam 0.25 MG TABLET PO PRN (22:16)
[2018-02-26] MEDS: TAMSULOSIN 0.4 MG CAPSULE PO SCH (22:16)
[2018-02-27] MEDS: SODIUM CHLORIDE 0.9% 1,000 ML IV SCH ×2 (00:18→23:17)
[2018-02-27] MEDS: AMOXICILLIN/CLAV 875 MG TABLET PO SCH ×3 (00:20→23:14)
[2018-02-27] MEDS: LANSOPRAZOLE ODT 30 MG TABLET PER TUBE SCH (09:05)
[2018-02-27] MEDS: FAMOTIDINE 20 MG TABLET PO SCH (09:05)
[2018-02-27] MEDS: AMIODARONE 200 MG TABLET PO SCH (09:05)
[2018-02-27] MEDS: DOCUSATE SODIUM 100 MG CAPSULE PO SCH ×2 (09:05→20:31)
[2018-02-27] MEDS: FILGRASTIM-SNDZ 300 MCG/0.5 ML SYRINGE SUBCUT SCH (09:06)
[2018-02-27] MEDS: ZINC OXIDE PASTE 113 GM TUBE TOP SCH ×2 (09:06→20:32)
[2018-02-27] MEDS: TIMOLOL 0.5% OPH SOLN 5 ML BOTTLE RIGHT EYE SCH ×2 (09:06→20:32)
[2018-02-27] MEDS: TAMSULOSIN 0.4 MG CAPSULE PO SCH (20:31)
[2018-02-28 05:06] LABS: Basophils % 0.4 % (0.0-0.8); Eosinophils % 0.1 % (0.00-10.9); Hematocrit 23.5 VOL% (42.0-52.0); Hemoglobin 7.3 GM/DL (14.0-18.0); Immature Granulocytes % 1.3 %; Lymphocytes # 1.9 10*3/uL (1.4-4.0); Lymphocytes % 24.2 % (21.2-54.2); Mean Corpuscular HGB Conc 31.1 GM/DL (32-36); Mean Corpuscular Hemoglobin 32 PG (27-34); Mean Corpuscular Volume 102.2 FL (87-102); Mean Platelet Volume 12.1 FL (9.6-12.0); Monocytes # 1.1 10*3/uL (0.11-0.8); Monocytes % 13.6 % (1.7-12.7); Neutrophils # 4.8 10*3/uL (1.4-7.4); Neutrophils % 60.4 % (38.7-73.9); Platelet Count 97 T/CUMM (130-400); Red Cell Distribution Width 20.2 % (9.3-17.3)
[2018-02-28 05:53] LABS: Band Neutrophils 14 % (0-10); Lymphocytes 25 % (20-55); Metamyelocytes 3 %; Myelocytes 1 %; Platelet Estimate Decreased; Segmented Neutrophils 43 % (50-85); Total Cells Counted 100
[2018-02-28 05:57] LABS: Hypochromasia Slight
[2018-02-28 05:58] LABS: Anisocytosis 2+; Macrocytosis 2+; Ovalocytes Few
[2018-02-28] MEDS: AMIODARONE 200 MG TABLET PO SCH (08:22)
[2018-02-28] MEDS: TIMOLOL 0.5% OPH SOLN 5 ML BOTTLE RIGHT EYE SCH ×2 (08:22→20:30)
[2018-02-28] MEDS: LANSOPRAZOLE ODT 30 MG TABLET PER TUBE SCH (08:22)
[2018-02-28] MEDS: FAMOTIDINE 20 MG TABLET PO SCH (08:22)
[2018-02-28] MEDS: ZINC OXIDE PASTE 113 GM TUBE TOP SCH ×2 (08:22→20:30)
[2018-02-28] MEDS: FILGRASTIM-SNDZ 300 MCG/0.5 ML SYRINGE SUBCUT SCH (08:23)
[2018-02-28] MEDS: DOCUSATE SODIUM 100 MG CAPSULE PO SCH ×2 (08:23→20:28)
[2018-02-28] MEDS ORDERED: SODIUM CHLORIDE 0.9% 1,000 ML IV PRN (10:15)
[2018-02-28] MEDS: AMOXICILLIN/CLAV 875 MG TABLET PO SCH ×2 (12:17→23:57)
[2018-02-28] MEDS: TAMSULOSIN 0.4 MG CAPSULE PO SCH (20:29)
[2018-03-01 05:08] LABS: Calcium 7.8 MG/DL (8.5-10.1); Osmolality,Calculated 284.4 MOS/KG (273-304); Potassium 4.9 MMOL/L (3.5-5.1); Prealbumin 16.6 MG/DL (20-40)
[2018-03-01] MEDS: FAMOTIDINE 20 MG TABLET PO SCH (10:39)
[2018-03-01] MEDS: AMIODARONE 200 MG TABLET PO SCH (10:39)
[2018-03-01] MEDS: LANSOPRAZOLE ODT 30 MG TABLET PER TUBE SCH (10:39)
[2018-03-01] MEDS: SODIUM CHLORIDE 0.9% 1,000 ML IV SCH (10:40)
[2018-03-01] MEDS: ZINC OXIDE PASTE 113 GM TUBE TOP SCH ×2 (10:41→20:54)
[2018-03-01] MEDS: TIMOLOL 0.5% OPH SOLN 5 ML BOTTLE RIGHT EYE SCH ×2 (10:41→20:53)
[2018-03-01] MEDS: DOCUSATE SODIUM 100 MG CAPSULE PO SCH ×2 (10:41→20:55)
[2018-03-01] MEDS: FILGRASTIM-SNDZ 300 MCG/0.5 ML SYRINGE SUBCUT SCH (10:41)
[2018-03-01] MEDS: AMOXICILLIN/CLAV 875 MG TABLET PO SCH (14:00)
[2018-03-01] MEDS: TAMSULOSIN 0.4 MG CAPSULE PO SCH (20:45)
[2018-03-01] MEDS: ALPRAZolam 0.25 MG TABLET PO PRN (20:45)
[2018-03-02] MEDS: AMOXICILLIN/CLAV 875 MG TABLET PO SCH ×2 (00:58→11:08)
[2018-03-02] MEDS: LANSOPRAZOLE ODT 30 MG TABLET PER TUBE SCH (09:06)
[2018-03-02] MEDS: AMIODARONE 200 MG TABLET PO SCH (09:06)
[2018-03-02] MEDS: FAMOTIDINE 20 MG TABLET PO SCH (09:06)
[2018-03-02] MEDS: TIMOLOL 0.5% OPH SOLN 5 ML BOTTLE RIGHT EYE SCH ×2 (09:07→20:44)
[2018-03-02] MEDS: FILGRASTIM-SNDZ 300 MCG/0.5 ML SYRINGE SUBCUT SCH (09:07)
[2018-03-02] MEDS: ZINC OXIDE PASTE 113 GM TUBE TOP SCH ×2 (09:07→20:44)
[2018-03-02] MEDS: DOCUSATE SODIUM 100 MG CAPSULE PO SCH ×2 (09:08→20:44)
[2018-03-02] MEDS: ACETAMINOPHEN 325 MG TABLET PO PRN ×2 (11:08→20:47)
[2018-03-02] MEDS: SODIUM CHLORIDE 0.9% 1,000 ML IV SCH (14:37)
[2018-03-02] MEDS: TAMSULOSIN 0.4 MG CAPSULE PO SCH (20:43)
[2018-03-02] MEDS: ALPRAZolam 0.25 MG TABLET PO PRN (20:48)
[2018-03-03] MEDS: AMOXICILLIN/CLAV 875 MG TABLET PO SCH ×3 (00:06→23:30)
[2018-03-03 05:15] LABS: Basophils # 0.1 10*3/uL (0.0-0.2); Basophils % 0.6 % (0.0-0.8); Eosinophils % 0.2 % (0.00-10.9); Hematocrit 25.1 VOL% (42.0-52.0); Hemoglobin 7.8 GM/DL (14.0-18.0); Immature Granulocytes % 1.8 %; Immature Granulocytes Absolute 0.17 #; Lymphocytes % 21.8 % (21.2-54.2); Mean Corpuscular HGB Conc 31.1 GM/DL (32-36); Mean Corpuscular Hemoglobin 32 PG (27-34); Mean Corpuscular Volume 101.2 FL (87-102); Mean Platelet Volume 11.7 FL (9.6-12.0); Monocytes # 1.2 10*3/uL (0.11-0.8); Monocytes % 12.8 % (1.7-12.7); Neutrophils # 5.8 10*3/uL (1.4-7.4); Neutrophils % 62.8 % (38.7-73.9); Platelet Count 105 T/CUMM (130-400); Red Blood Count 2.48 MC/CUMM (3.8-5.5); White Blood Count 9.3 T/CUMM (4-12)
[2018-03-03 05:35] LABS: Osmolality,Calculated 283.5 MOS/KG (273-304)
[2018-03-03 05:43] LABS: Band Neutrophils 1 % (0-10); Lymphocytes 22 % (20-55); Platelet Estimate Decreased; Polychromasia Few; Segmented Neutrophils 73 % (50-85); Total Cells Counted 100
[2018-03-03] MEDS: LANSOPRAZOLE ODT 30 MG TABLET PER TUBE SCH (09:05)
[2018-03-03] MEDS: FAMOTIDINE 20 MG TABLET PO SCH (09:05)
[2018-03-03] MEDS: AMIODARONE 200 MG TABLET PO SCH (09:06)
[2018-03-03] MEDS: TIMOLOL 0.5% OPH SOLN 5 ML BOTTLE RIGHT EYE SCH ×2 (09:06→21:34)
[2018-03-03] MEDS: FILGRASTIM-SNDZ 300 MCG/0.5 ML SYRINGE SUBCUT SCH (09:06)
[2018-03-03] MEDS: ZINC OXIDE PASTE 113 GM TUBE TOP SCH ×2 (09:06→21:33)
[2018-03-03] MEDS: DOCUSATE SODIUM 100 MG CAPSULE PO SCH ×2 (09:06→21:34)
[2018-03-03] MEDS: ALPRAZolam 0.25 MG TABLET PO PRN ×2 (17:30→22:32)
[2018-03-03] MEDS: FUROSEMIDE 40 MG/4 ML VIAL IV SCH (17:30)
[2018-03-03] MEDS: TAMSULOSIN 0.4 MG CAPSULE PO SCH (21:33)
[2018-03-03] MEDS: ACETAMINOPHEN 325 MG TABLET PO PRN (22:32)
[2018-03-04 05:14] LABS: Calcium 8.4 MG/DL (8.5-10.1); Osmolality,Calculated 281.8 MOS/KG (273-304); Potassium 4.6 MMOL/L (3.5-5.1)
[2018-03-04] MEDS: FUROSEMIDE 40 MG/4 ML VIAL IV SCH ×2 (11:35→18:06)
[2018-03-04] MEDS: ZINC OXIDE PASTE 113 GM TUBE TOP SCH ×2 (11:35→21:18)
[2018-03-04] MEDS: FAMOTIDINE 20 MG TABLET PO SCH (11:35)
[2018-03-04] MEDS: TIMOLOL 0.5% OPH SOLN 5 ML BOTTLE RIGHT EYE SCH ×2 (11:36→21:18)
[2018-03-04] MEDS: LANSOPRAZOLE ODT 30 MG TABLET PER TUBE SCH (11:36)
[2018-03-04] MEDS: AMIODARONE 200 MG TABLET PO SCH (11:36)
[2018-03-04] MEDS: DOCUSATE SODIUM 100 MG CAPSULE PO SCH ×2 (11:36→20:58)
[2018-03-04] MEDS: FILGRASTIM-SNDZ 300 MCG/0.5 ML SYRINGE SUBCUT SCH (11:37)
[2018-03-04] MEDS: AMOXICILLIN/CLAV 875 MG TABLET PO SCH (17:38)
[2018-03-04] MEDS: ACETAMINOPHEN 325 MG TABLET PO PRN (20:58)
[2018-03-04] MEDS: ALPRAZolam 0.25 MG TABLET PO PRN (20:58)
[2018-03-04] MEDS: TAMSULOSIN 0.4 MG CAPSULE PO SCH (20:58)
[2018-03-05] MEDS: AMIODARONE 200 MG TABLET PO SCH (09:50)
[2018-03-05] MEDS: LANSOPRAZOLE ODT 30 MG TABLET PER TUBE SCH (09:50)
[2018-03-05] MEDS: FILGRASTIM-SNDZ 300 MCG/0.5 ML SYRINGE SUBCUT SCH (09:50)
[2018-03-05] MEDS: FAMOTIDINE 20 MG TABLET PO SCH (09:50)
[2018-03-05] MEDS: FUROSEMIDE 40 MG/4 ML VIAL IV SCH ×2 (09:50→15:33)
[2018-03-05] MEDS: ZINC OXIDE PASTE 113 GM TUBE TOP SCH ×2 (09:51→20:59)
[2018-03-05] MEDS: DOCUSATE SODIUM 100 MG CAPSULE PO SCH ×2 (09:51→20:59)
[2018-03-05] MEDS: TIMOLOL 0.5% OPH SOLN 5 ML BOTTLE RIGHT EYE SCH ×2 (09:52→20:59)
[2018-03-05 15:57] LABS: Basophils # 0.1 10*3/uL (0.0-0.2); Basophils % 0.5 % (0.0-0.8); Eosinophils % 0.3 % (0.00-10.9); Hematocrit 27.3 VOL% (42.0-52.0); Hemoglobin 8.5 GM/DL (14.0-18.0); Immature Granulocytes % 1.9 %; Immature Granulocytes Absolute 0.28 #; Lymphocytes # 2.1 10*3/uL (1.4-4.0); Lymphocytes % 13.9 % (21.2-54.2); Mean Corpuscular HGB Conc 31.1 GM/DL (32-36); Mean Corpuscular Hemoglobin 31 PG (27-34); Mean Platelet Volume 11.9 FL (9.6-12.0); Monocytes % 13.3 % (1.7-12.7); Neutrophils # 10.5 10*3/uL (1.4-7.4); Neutrophils % 70.1 % (38.7-73.9); Platelet Count 146 T/CUMM (130-400); Red Blood Count 2.73 MC/CUMM (3.8-5.5); Red Cell Distribution Width 21.5 % (9.3-17.3)
[2018-03-05 17:32] LABS: Band Neutrophils 43 % (0-10); Lymphocytes 9 % (20-55); Segmented Neutrophils 38 % (50-85); Total Cells Counted 100
[2018-03-05 17:33] LABS: Anisocytosis Slight; Hypochromasia 1+; Platelet Estimate Normal
[2018-03-05 17:34] LABS: Elliptocytes Few; Polychromasia Slight
[2018-03-05] MEDS: ALPRAZolam 0.25 MG TABLET PO PRN (20:17)
[2018-03-05] MEDS: TAMSULOSIN 0.4 MG CAPSULE PO SCH (20:17)
[2018-03-06 06:03] LABS: Basophils # 0.1 10*3/uL (0.0-0.2); Basophils % 0.5 % (0.0-0.8); Eosinophils # 0.1 10*3/uL (0.0-0.87); Eosinophils % 0.7 % (0.00-10.9); Hematocrit 27.1 VOL% (42.0-52.0); Hemoglobin 8.4 GM/DL (14.0-18.0); Lymphocytes # 2.5 10*3/uL (1.4-4.0); Lymphocytes % 26.3 % (21.2-54.2); Mean Corpuscular Hemoglobin 32 PG (27-34); Mean Corpuscular Volume 101.9 FL (87-102); Mean Platelet Volume 11.5 FL (9.6-12.0); Monocytes % 10.3 % (1.7-12.7); Neutrophils # 5.9 10*3/uL (1.4-7.4); Neutrophils % 61.2 % (38.7-73.9); Platelet Count 117 T/CUMM (130-400); Red Blood Count 2.66 MC/CUMM (3.8-5.5); Red Cell Distribution Width 21.4 % (9.3-17.3); White Blood Count 9.7 T/CUMM (4-12)
[2018-03-06 06:16] LABS: Calcium 8.4 MG/DL (8.5-10.1); Osmolality,Calculated 279.2 MOS/KG (273-304); Potassium 4.9 MMOL/L (3.5-5.1)
[2018-03-06] MEDS: TIMOLOL 0.5% OPH SOLN 5 ML BOTTLE RIGHT EYE SCH ×2 (09:50→21:01)
[2018-03-06] MEDS: LANSOPRAZOLE ODT 30 MG TABLET PER TUBE SCH (09:50)
[2018-03-06] MEDS: DOCUSATE SODIUM 100 MG CAPSULE PO SCH ×2 (09:50→20:58)
[2018-03-06] MEDS: FAMOTIDINE 20 MG TABLET PO SCH (09:50)
[2018-03-06] MEDS: AMIODARONE 200 MG TABLET PO SCH (09:50)
[2018-03-06] MEDS: FUROSEMIDE 40 MG/4 ML VIAL IV SCH ×2 (09:51→15:43)
[2018-03-06] MEDS: ZINC OXIDE PASTE 113 GM TUBE TOP SCH ×2 (09:51→21:01)
[2018-03-06] MEDS: FILGRASTIM-SNDZ 300 MCG/0.5 ML SYRINGE SUBCUT SCH (09:51)
[2018-03-06 10:22] LABS: Band Neutrophils 1 % (0-10); Lymphocytes 28 % (20-55); Platelet Estimate Adequate; Polychromasia Slight; Segmented Neutrophils 67 % (50-85); Total Cells Counted 100
[2018-03-06] MEDS: TAMSULOSIN 0.4 MG CAPSULE PO SCH (20:58)
[2018-03-06] MEDS: ALPRAZolam 0.25 MG TABLET PO PRN (20:58)
[2018-03-07] MEDS: FAMOTIDINE 20 MG TABLET PO SCH (08:38)
[2018-03-07] MEDS: LANSOPRAZOLE ODT 30 MG TABLET PER TUBE SCH (08:38)
[2018-03-07] MEDS: AMIODARONE 200 MG TABLET PO SCH (08:39)
[2018-03-07] MEDS: ZINC OXIDE PASTE 113 GM TUBE TOP SCH ×2 (08:39→21:05)
[2018-03-07] MEDS: FUROSEMIDE 40 MG/4 ML VIAL IV SCH ×2 (08:39→16:43)
[2018-03-07] MEDS: DOCUSATE SODIUM 100 MG CAPSULE PO SCH ×2 (08:39→21:05)
[2018-03-07] MEDS: TIMOLOL 0.5% OPH SOLN 5 ML BOTTLE RIGHT EYE SCH ×2 (08:39→21:05)
[2018-03-07] MEDS: FILGRASTIM-SNDZ 300 MCG/0.5 ML SYRINGE SUBCUT SCH (08:40)
[2018-03-07] MEDS: ALPRAZolam 0.25 MG TABLET PO PRN (21:05)
[2018-03-07] MEDS: TAMSULOSIN 0.4 MG CAPSULE PO SCH (21:05)
[2018-03-08 07:30] LABS: Calcium 8.8 MG/DL (8.5-10.1); Potassium 4.6 MMOL/L (3.5-5.1); Prealbumin 19.2 MG/DL (20-40)
[2018-03-08 07:43] VITALS: BP 118/57
[2018-03-08] MEDS: FUROSEMIDE 40 MG/4 ML VIAL IV SCH (09:53)
[2018-03-08] MEDS: DOCUSATE SODIUM 100 MG CAPSULE PO SCH (09:53)
[2018-03-08] MEDS: LANSOPRAZOLE ODT 30 MG TABLET PER TUBE SCH (09:53)
[2018-03-08] MEDS: AMIODARONE 200 MG TABLET PO SCH (09:53)
[2018-03-08] MEDS: FAMOTIDINE 20 MG TABLET PO SCH (09:53)
[2018-03-08] MEDS: TIMOLOL 0.5% OPH SOLN 5 ML BOTTLE RIGHT EYE SCH (09:54)
[2018-03-08] MEDS: ZINC OXIDE PASTE 113 GM TUBE TOP SCH (09:54)
[2018-03-08] MEDS: FILGRASTIM-SNDZ 300 MCG/0.5 ML SYRINGE SUBCUT SCH (09:54)
== END 2018-03-08 13:37 | DRG 871 ==
LOC: EDBD → EDUNIT# → N.ED 16:34 → SUATTDRO 18:49 → N.EDINP 18:49 → N.ICU 19:44 → N.4E 02-14 13:21
PROVIDERS: ADMIT Hospitalist; ATTEND Internal Medicine